=== PATIENT | male | born 1950 | race Caucasian/White ===

== ENCOUNTER 2016-09-06 17:06 | Inpatient (IN) ==
[2016-09-06 18:01] LABS: Basophils % 0.1 %; Eosinophils % 0.3 %; Hematocrit 33.9 % (37.5-50.1); Hemoglobin 11.2 g/dL (12.9-16.9); Immature Granulocytes % 0.5 % (0-4); Lymphocytes # 0.4 K/mcL (0.6-4.6); Lymphocytes % 3.3 %; Mean Corpuscular Hemoglobin 30.4 pg (28.0-33.3); Mean Corpuscular Volume 92.1 fL (83.0-100.0); Mean Platelet Volume 8.6 fL (9.4-12.4); Monocytes # 0.6 K/mcL (0.0-1.3); Monocytes % 5.7 %; Neutrophils # 10.1 K/mcL (1.6-8.9); Platelet Count 133 K/mcL (140-400); Red Blood Count 3.68 M/mcL (4.19-5.50); Red Cell Distribution Width 13.1 % (11.5-14.5); Segmented Neutrophils % 90.1 %
[2016-09-06 18:26] LABS: Calcium 9.5 mg/dL (8.6-10.8)
[2016-09-06] MEDS ORDERED: *HR* Promethazine 25 MG/ML VIAL IVP PRN (18:43)
[2016-09-06] MEDS ORDERED: Tdap (Boostrix) Vaccine 0.5 ML SYRINGE IM ONE (18:47)
--- NOTE | 2016-09-06 18:59 | Emergency Department Note ---
Disposition Clinical Impression: Syncope and collapse, Elevated troponin Disposition: Admitted As Inpatient Condition: Fair Time of Disposition: 20:31 General Adult HPI - General Stated complaint: Elevated Trop 0.08 Time Seen by Provider: 09/06/16 17:33 Source: patient Nursing Notes Reviewed: Yes Vital Signs Reviewed: Yes - History of Present Illness HPI Narrative: Patient is a 66-year-old male who presents after syncopal episode that happened 9 hours ago. Patient was found down ground in front of his trailer by his partner who states he was completely out. He was then taken to [facility] ED for assessment. Her report from them stated that their assessment was negative and the patient was discharged home. Once they got home they were called by the ED and was told his troponin was elevated and was directed to come to [place] emergency department. Patient states he is nauseous but is nauseous chronically vomits at least once daily. Patient denies any chest pain shortness of breath vision changes. Patient does state he has been having increasing unsteadiness on his feet. Pt states that he had a previous episode about six weeks ago but did not go to the hospital for workup. Patients partner states she the pt has seemed more weak after starting clonidine x 4wks ago. Patient has a past medical history for diabetes, hypertension, patient is on dialysis Monday with Dr. Vee. Pain Scale: 0 - Related Data Home Medications Medication Instructions Recorded Confirmed Aspirin Enteric Coated [Aspirin EC] 81 mg PO DAILY 05/02/16 09/06/16 Calcium Carbonate [Tums] 500 mg PO QID 05/02/16 09/06/16 Insulin NPH, HUMAN [HumuLIN N] 6 unit SQ HS 05/02/16 09/06/16 Insulin NPH, HUMAN [HumuLIN N] 12 unit SQ QAM 05/02/16 09/06/16 Paroxetine [Paxil] 20 mg PO DAILY 05/02/16 09/06/16 Renal Vitamin [Renal Caps Softgel] 1 mg PO DAILY 05/02/16 09/06/16 Acetaminophen [Tylenol Arthritis] 1,300 mg PO Q8H PRN 09/06/16 09/06/16 Atenolol [Tenormin] 25 mg PO QPM 09/06/16 09/06/16 Docusate [Colace] 100 mg PO BID 09/06/16 09/06/16 Hydralazine HCl [Hydralazine HCl] 50 mg PO BID 09/06/16 09/06/16 Lidocaine/Prilocaine CREAM [Emla] 1 appl TP AD PRN 09/06/16 09/06/16 Lisinopril [Zestril] 10 mg PO SUTUTH@199909/06/16 09/06/16 Lisinopril [Zestril] 20 mg PO MOWEFRSA@199909/06/16 09/06/16 Mupirocin [Bactroban Oint] 1 appl TP BID 09/06/16 09/06/16 Quetiapine Fumarate [Seroquel] 50 mg PO HS 09/06/16 09/06/16 cloNIDine HCl [CloNIDine HCl] 0.1 mg PO BID 09/06/16 09/06/16 Previous Rx's Medication Instructions Recorded Atorvastatin [Lipitor] 40 mg PO HS #30 tablet 02/20/15 Allergies Allergy/AdvReac Type Severity Reaction Status Date / Time No Known Allergies Allergy Verified 09/06/16 17:43 All systems ED: reviewed and negative except as stated. Review of Systems: As Per HPI Constitutional: Denies: fever, chills, weakness, weight change Eyes: Denies: eye pain, eye discharge, vision change ENT ED: Denies: ear pain, throat pain, dental pain, hearing loss, epistaxis, congestion, dysphagia Cardiovascular: Denies: chest pain, palpitations, dyspnea on exertion, edema, syncope Respiratory: Denies: cough, dyspnea, wheezes, hemoptysis, stridor Gastrointestinal: Reports: nausea, vomiting Genitourinary: Denies: urgency, dysuria, frequency, hematuria Musculoskeletal: Denies: back pain, neck pain, arthralgia, myalgia Integumentary: Reports: abrasion (Left forearm) Neurological: Reports: weakness Hematological/Lymphatic: Denies: easy bleeding, easy bruising Past Medical History - Past Medical History Attestation: Yes The following information was validated with the patient. Source: patient, obtained from family Medical history: Reports: diabetes, dialysis, hypertension, renal disease, other Surgical history: Reports: cholecystectomy, colectomy, other Psychiatric history: Reports: no psych history - Social History Smoking Status: Never smoker Smokeless Tobacco Status: No Alcohol use: Reports: none Drug use: Reports: none Physical Exam -General Appearance: Patient is a 66-year-old male who is alert and oriented 3 and in no acute distress. -Neurological exam: Cranial nerves II-12 intact, no focal deficits observed, strength equal 5/5 bilaterally in upper and lower extremities, cerebellar motion test negative. Negative loss of sensation - Head Head exam: Small superficial abrasion to forehead - Eye Eye exam: Present: normal appearance, PERRL, EOMI, negative for scleral icterus negative for conjunctival pallor - ENT ENT exam: normal exam, normal oropharynx, mucous membranes moist - Neck Neck exam: Present: normal inspection, full ROM, trachea midline, negative JVD no bruit - Chest Chest inspection: Present: Patient has bilateral equal rise and fall of chest wall. Non-tender to palpation. - Respiratory Respiratory exam: Clear to auscultation bilaterally without wheezes rales or rhonchi Cardiovascular Cardiovascular exam: Present: regular rate, normal rhythm, normal heart sounds, without murmurs rubs or gallops. - Abdominal Exam Abdominal exam: Present: soft, nondistended, Non-Tender light and deep palpation in all quadrants. Bowel sounds normoactive throughout all 4 quadrants. Negative for hyper or hyperresonance. - Extremities Exam Extremities exam: Present: normal inspection, equal strength bilaterally, patient has a large abrasion to left posterior forearm not actively bleeding - Back Exam Back exam: Present: normal inspection, full ROM. Absent: tenderness, CVA tenderness (R), CVA tenderness (L) - Psychiatric Psychiatric exam: Present: normal affect, normal mood - Skin Skin exam: Present: warm, dry, intact, normal color - General General appearance: alert, in no apparent distress Course - Reevaluation(s) Reevaluation #1: Pt ministered Phenergan 12.5 mg for nausea. Labs ordered Time: 18:44 Reevaluation #2: Patient has had resolution of nausea after Phenergan administered Time: 19:00 Reevaluation #3: repeat phenergan ordered for nausea Time: 19:40 - Consultations Consultation #1: Dr. Garzon the hospitalist has accepted for admission 2020hrs Time: 20:20 Vital Signs Temperature 98.8 F 09/06/16 17:36 Pulse Rate 69 09/06/16 17:36 Respiratory Rate 16 09/06/16 17:36 Blood Pressure 160/85 09/06/16 17:36 O2 Sat by Pulse Oximetry 90 09/06/16 17:36 Temperature 98.2 F 09/06/16 23:30 Pulse Rate 63 09/06/16 23:30 Respiratory Rate 16 09/06/16 23:30 Blood Pressure 150/64 09/06/16 23:30 O2 Sat by Pulse Oximetry 93 09/06/16 23:30 Oxygen Delivery Oxygen Delivery Nasal Cannula Medical Decision Making - MDM Narrative Medical decision making narrative: 66-year-old male who presents to ED after being seen at [facility] secondary to the syncopal episode which he was found laying out in front of his trailer by his partner. Patient states this is his second occurrence of within 6 weeks. Patient has noticed increasing weakness since starting clonidine 4 weeks ago as well. Patient was discharged home after supposedly negative workup. Patient was called at home for an elevated troponin and directed to [place]. Patient presented in no acute distress but complains of lower extremity weakness. Patient not having any chest pain. Patient's troponins were elevated at 0.27. Patient's EKG showed inverted T waves in aVL but no other signs of ST depression or QRS widening. nausea and vomiting resolved wtih phenergan 12.5 iv. Chest x-ray showed no cardiopulmonary abnormalities, CT head and neck no intracranial abnormalities. Patient BUN/creatinine chronically high and currently at baseline for patient. GFR 15 and patient still makes some urine. Creatinine kinase negative. Patient is chronically anemic and hemoglobin is currently 11.2 which is close to baseline. WBC at 11.2 which is mildly elevated but may be secondary to stress reaction secondary to syncopal episode. RECOMMEND MONITORING AND CORRELATE WITH OVERALL PATIENT'S CONDITION. We will try to obtain urine for urinalysis to rule out UTI. Discussed admission with patient and partner who accepts treatment plan for further workup concerning patient's syncope and lower extremity weakness I discussed the case with Dr. Garzon the hospitalist who was accepted patient for admission. - Medical Records Medical records reviewed: Yes I reviewed the patient's medical records. - Lab Data Lab results reviewed: Yes I reviewed the patient's lab results. Lab results narrative: Laboratory Results - last 48 hr 09/06/16 09/06/16 09/06/16 17:50 17:50 17:50 WBC 11.2 H RBC 3.68 L Hgb 11.2 L Hct 33.9 L MCV 92.1 MCH 30.4 MCHC 33.0 RDW 13.1 Plt Count 133 L MPV 8.6 L Immature Gran % 0.5 Seg Neutrophils % 90.1 Lymphocytes % 3.3 Monocytes % 5.7 Eosinophils % 0.3 Basophils % 0.1 Neutrophils # 10.1 H Lymphocytes # 0.4 L Monocytes # 0.6 Eosinophils # 0.0 Basophils # 0.0 Sodium 140 Potassium 4.0 Chloride 98 Carbon Dioxide 29 BUN 52 H Creatinine 4.66 H Est GFR ( Amer) 15 L Est GFR (Non-Af Amer) 13 L BUN/Creatinine Ratio 11 Glucose 179 H Calculated Osmolality 309 H Calcium 9.5 Creatine Kinase Troponin I 0.27 H* 09/06/16 17:50 WBC RBC Hgb Hct MCV MCH MCHC RDW Plt Count MPV Immature Gran % Seg Neutrophils % Lymphocytes % Monocytes % Eosinophils % Basophils % Neutrophils # Lymphocytes # Monocytes # Eosinophils # Basophils # Sodium Potassium Chloride Carbon Dioxide BUN Creatinine Est GFR ( Amer) Est GFR (Non-Af Amer) BUN/Creatinine Ratio Glucose Calculated Osmolality Calcium Creatine Kinase 108 Troponin I Result diagrams: 09/06/16 17:50 09/06/16 17:50 Lab Results 09/06/16 09/06/16 09/06/16 Range/Units 17:50 17:50 17:50 WBC 11.2 H (4.3-11.1) K/mcL RBC 3.68 L (4.19-5.50) M/mcL Hgb 11.2 L (12.9-16.9) g/dL Hct 33.9 L (37.5-50.1) % MCV 92.1 (83.0-100.0) fL MCH 30.4 (28.0-33.3) pg MCHC 33.0 (31.6-35.5) g/dL RDW 13.1 (11.5-14.5) % Plt Count 133 L (140-400) K/mcL MPV 8.6 L (9.4-12.4) fL Immature Gran % 0.5 (0-4) % Seg Neutrophils % 90.1 % Lymphocytes % 3.3 % Monocytes % 5.7 % Eosinophils % 0.3 % Basophils % 0.1 % Neutrophils # 10.1 H (1.6-8.9) K/mcL Lymphocytes # 0.4 L (0.6-4.6) K/mcL Monocytes # 0.6 (0.0-1.3) K/mcL Eosinophils # 0.0 (0.0-0.6) K/mcL Basophils # 0.0 (0.0-0.2) K/mcL Sodium 140 (136-145) mEq/L Potassium 4.0 (3.5-4.5) mEq/L Chloride 98 (98-109) mEq/L Carbon Dioxide 29 (19-29) mEq/L BUN 52 H (8-26) mg/dL Creatinine 4.66 H (0.72-1.25) mg/dL Est GFR ( Amer) 15 L (> 60) Est GFR (Non-Af Amer) 13 L (> 60) BUN/Creatinine Ratio 11 (6-26) Glucose 179 H (70-99) mg/dL Calculated Osmolality 309 H (280-300) Calcium 9.5 (8.6-10.8) mg/dL Creatine Kinase (30-200) Units/L Troponin I 0.27 H* (0-0.03) ng/mL Urine Color (Yellow) Urine Clarity (Clear) Urine pH (5.0-8.0) pH Units Ur Specific [place] (1.010-1.025) Urine Protein (Neg-Trace) mg/dL Urine Glucose (UA) (Normal) mg/dL Urine Ketones (Negative) mg/dL Urine Blood (Negative) Urine Nitrite (Negative) Urine Bilirubin (Negative) Urine Urobilinogen (Normal) mg/dL Ur Leukocyte Esterase (Negative) Urine Microscopic RBC (0-3) per hpf Urine Microscopic WBC (0-3) per hpf Ur Squamous Epith Cells (None-Few) per lpf Urine Bacteria (None-Few) per hpf Hyaline Casts (None-Few) per lpf Ur Culture Indicated? (NO) 09/06/16 09/06/16 Range/Units 17:50 20:30 WBC (4.3-11.1) K/mcL RBC (4.19-5.50) M/mcL Hgb (12.9-16.9) g/dL Hct (37.5-50.1) % MCV (83.0-100.0) fL MCH (28.0-33.3) pg MCHC (31.6-35.5) g/dL RDW (11.5-14.5) % Plt Count (140-400) K/mcL MPV (9.4-12.4) fL Immature Gran % (0-4) % Seg Neutrophils % % Lymphocytes % % Monocytes % % Eosinophils % % Basophils % % Neutrophils # (1.6-8.9) K/mcL Lymphocytes # (0.6-4.6) K/mcL Monocytes # (0.0-1.3) K/mcL Eosinophils # (0.0-0.6) K/mcL Basophils # (0.0-0.2) K/mcL Sodium (136-145) mEq/L Potassium (3.5-4.5) mEq/L Chloride (98-109) mEq/L Carbon Dioxide (19-29) mEq/L BUN (8-26) mg/dL Creatinine (0.72-1.25) mg/dL Est GFR ( Amer) (> 60) Est GFR (Non-Af Amer) (> 60) BUN/Creatinine Ratio (6-26) Glucose (70-99) mg/dL Calculated Osmolality (280-300) Calcium (8.6-10.8) mg/dL Creatine Kinase 108 (30-200) Units/L Troponin I (0-0.03) ng/mL Urine Color Yellow (Yellow) Urine Clarity Clear (Clear) Urine pH 7.0 (5.0-8.0) pH Units Ur Specific [place] 1.023 (1.010-1.025) Urine Protein >=300 H (Neg-Trace) mg/dL Urine Glucose (UA) 100 H (Normal) mg/dL Urine Ketones Trace H (Negative) mg/dL Urine Blood Negative (Negative) Urine Nitrite Negative (Negative) Urine Bilirubin Small H (Negative) Urine Urobilinogen Normal (Normal) mg/dL Ur Leukocyte Esterase Negative (Negative) Urine Microscopic RBC 5-15 H (0-3) per hpf Urine Microscopic WBC 0-3 (0-3) per hpf Ur Squamous Epith Cells Many H (None-Few) per lpf Urine Bacteria None Seen (None-Few) per hpf Hyaline Casts None Seen (None-Few) per lpf Ur Culture Indicated? NO (NO) - Radiology Data Radiology results reviewed: Yes I reviewed the patient's radiology results. Chest X-Ray 09/06/16 17:51 IMPRESSION: Limited, low lung volume study. Suspected vascular congestion and possibly interstitial pulmonary edema. D/ / Cecilio Bro MD / Cecilio Bro MD Interpreting Provider: Cecilio Bro MD Cervical Spine CT 09/06/16 17:55 IMPRESSION: No acute abnormality of the cervical spine. D/ / Fortunato Avila MD / Fortunato Avila MD Interpreting Provider: Fortunato Avila MD Head CT 09/06/16 17:55 IMPRESSION: No acute intracranial abnormality. D/ / Mckay Yan MD / Mckay Yan MD Interpreting Provider: Mckay Yan MD - EKG Data EKG #1 EKG attestation: Yes I reviewed and interpreted this EKG. EKG results narrative: EKG taken 09/06/2016 at 1745 hrs. shows sinus rhythm with first-degree AV block , patient has flipped T-wave in aVL with no ST depressions or elevations in leads. No QRS widening no QT prolongation. Ventricular rate 65 bpm Repeat EKG taken at 2030 hrs. shows no change. Ventricular rate 67 bpm Attestation Statement - Attestation Attestation: I examined this patient and my medical decision-making was reviewed with the Resident Physician. I agree with the documented findings, disposition and treatment plan as described except to the extent set forth below. In summary 66 -year-old male who presents with concern for elevated cardiac biomarkers. He was seen at [facility] and recently admitted. He has had 2 syncopal episodes. Ultimately he has chronic elevated cardiac biomarkers from underlying renal dysfunction. He has had frequent falls. His tetanus shot was updated due to a abrasion on the left arm. This is not updated at [facility]. Additionally CT scan of the head and neck was performed which shows no acute findings. The patient was admitted for further evaluation of syncope, fall. Vital signs are stable at time of admission. EKG was nondiagnostic. He did have some vomiting however this is chronic for the patient.
[2016-09-06] MEDS ORDERED: *HR* Promethazine 25 MG/ML VIAL IVP ONE (20:29)
--- NOTE | 2016-09-06 20:36 | Internal Med History&Physical ---
Date of Encounter: 09/06/16 Time of Encounter: 20:35 Assessment and Plan (1) Syncope Current visit: Yes Status: Acute patient with no known hx of arrhythmia or seizure comes in with a regular fall suggestive of physical deconditioning but subsequently had a fall for which he passed out, this second fall was without warning, this is concerning for syncope of ?cardiac origin vs vsovagal vs neuro in etiology, EKG was suggestive of 1st degree AV block and fascicular block, head CT was unremarkable we will admit for telemonitoring and 2D Echo, further evaluation depends on findings from the aforementioned tests, he may need event monitoring if current investigations are unremarkable Qualifiers: Syncope type: unspecified Qualified Code(s): R55 - Syncope and collapse (2) Elevated troponin Current visit: Yes Status: Chronic patient has always had troponemia, this most likely related to poor renal clearance from ESRD, his peak was 0.68 in 01/2015, now admitted with 0.27, no need to trend, will repeat with AM labs (3) ESRD (end stage renal disease) on dialysis Current visit: Yes Status: Chronic hx of ESRD on HD MWF, he had his regular HD yesterday with no complications, we will get nephrology to weigh in for inpatient HD from tomorrow (4) HTN (hypertension) Current visit: Yes Status: Chronic Hx of uncontrolled HTN on multiple medications, we will continue home medications with BP monitoring Qualifiers: Hypertension type: essential hypertension Qualified Code(s): I10 - Essential (primary) hypertension (5) Diabetes Current visit: Yes Status: Chronic hx of type 2 DM on insulin, he was admitted with hyperglycemia, last A1c unknown , we will continue basal bolus regimen with sliding scale for coverage, will repeat A1c 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 mellitus complication status: with kidney complications Diabetes mellitus complication detail: with chronic kidney disease Diabetes mellitus group home insulin use: 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 Dwyer is a 66 year old male with a history of ESRD on HD MWF was brought in today for passing out. He was in his usual state of health until sometime this today when he fell whilst he was returning from the mailbox after he went for his mail. He reports lightheadedness prior to that fall and he was aware the whole time with no LOC. He broke his fal with his left arm. He denies preceding chest pain, nausea or vomiting, palpitations. Later whilst he was being helped up the stairs he passed out and was helped to the floor. He denies any warning, he did not have any prior symptoms and was unable to break his fall this time around. Per his partner he was out for about 4-5 minutes, no seizure like activity was seen. He was taken to the ER of [place] where workup was unremarkable but later called at home for elevated troponin and asked to come to the ER of [place] for further evaluation. He denies fever, chills, recent sick contacts. He had his regular HD yesterday without hypotension, tachycardia or hypertension. Per partner he had a normal LHC last year at [facility]. Past Med Surg Social Fam HX - Past Medical History Medical history: diabetes, dialysis, hypertension, renal disease, other Psychiatric history: no psych history - Past Surgical History Surgical History: cholecystectomy, colectomy, other - Social History Smoking Status: Former smoker Packs per day: light smoker and quit about 40 years ago Smokeless Tobacco Status: No Alcohol use: none Drug use: none - Family History Mother Living Status: Hx Family Cardiac Disorders: Yes Hx Family Cancer: Yes (metastic breast cancer) Internal Medicine - H&P: Meds Atorvastatin [Lipitor] 40 mg PO HS #30 tablet 02/20/15 [Rx] Aspirin Enteric Coated [Aspirin EC] 81 mg PO DAILY 05/02/16 [History] Calcium Carbonate [Tums] 500 mg PO QID 05/02/16 [History] Insulin NPH, HUMAN [HumuLIN N] 6 unit SQ HS 05/02/16 [History] Insulin NPH, HUMAN [HumuLIN N] 12 unit SQ QAM 05/02/16 [History] Paroxetine [Paxil] 20 mg PO DAILY 05/02/16 [History] Renal Vitamin [Renal Caps Softgel] 1 mg PO DAILY 05/02/16 [History] Acetaminophen [Tylenol Arthritis] 1,300 mg PO Q8H PRN 08/01/17 [History] Atenolol [Tenormin] 25 mg PO QPM 09/06/16 [History] Docusate [Colace] 100 mg PO BID 09/06/16 [History] Hydralazine HCl [Hydralazine HCl] 50 mg PO BID 09/06/16 [History] Lidocaine/Prilocaine CREAM [Emla] 1 appl TP AD PRN 09/06/16 [History] Lisinopril [Zestril] 10 mg PO SUTUTH@199909/06/16 [History] Lisinopril [Zestril] 20 mg PO MOWEFRSA@199909/06/16 [History] Mupirocin [Bactroban Oint] 1 appl TP BID 09/06/16 [History] Quetiapine Fumarate [Seroquel] 50 mg PO HS 09/06/16 [History] cloNIDine HCl [CloNIDine HCl] 0.1 mg PO BID 09/06/16 [History] Allergies No Known Allergies Allergy (Verified 09/06/16 17:43) All Systems PM: A 10-system review of systems was performed and is negative for pertinent findings except as documented above in the HPI. - Constitutional Vitals: Temp Pulse Resp BP Pulse Ox 98.8 F 65 16 183/85 100 09/06/16 17:36 09/06/16 20:14 09/06/16 20:14 09/06/16 20:14 09/06/16 20:14 GENERAL: Adult male, sitting on the edge of the bed, vomiting into a container, face flushed as he does so, Alert, HEENT: NC/AT, EOMI, PERRLA, anicteric sclera, normal conjunctiva, supple, clear nares, moist mucous membranes, RESP: Lungs are clear to auscultation bilaterally, good AE bilaterally, No crackles or wheeze CARDIO: Normal hearts sounds; S1 and 2, RRR with no murmurs, no JVD, no ankle edema GI: Soft, full, no tenderness, no organomegaly felt, normal bowel sounds heard MUSCULOSKELETAL: grossly normal movements bilaterally, no deformities noted, no calf tenderness, LUE AVF with thrill and bruit NEUROLOGIC: CN 2-12 intact grossly. No gross motor/sensory deficit appreciated, PSYCHIATRY: AAO x 3. Mood is fair, SKIN: frontal abrasion, LUE abrasions(all from fall) Internal Med - H&P Results - Labs CBC & Chem 7: 09/06/16 17:50 09/06/16 17:50 - EKG Data -: EKG Interpreted by Myself - Diagnostic Studies CT scan - head Status: image reviewed by me Chest x-ray Status: image reviewed by me
[2016-09-06 21:18] LABS: Bilirubin,Urine Small (Negative); Blood,Urine Negative (Negative); Clarity,Urine Clear (Clear); Color,Urine Yellow (Yellow); Glucose,Urine (UA) 100 mg/dL (Normal); Ketones,Urine Trace mg/dL (Negative); Leukocyte Esterase,Urine Negative (Negative); Nitrite,Urine Negative (Negative); Protein,Urine >=300 mg/dL (Neg-Trace); Specific Gravity,Urine 1.023 (1.010-1.025); Urobilinogen,Urine Normal (Normal)
[2016-09-06 21:21] LABS: Bacteria,Urine None Seen per hpf (None-Few); Hyaline Casts,Urine None Seen per lpf (None-Few); Squamous Epithelial Cell,Urine Many per lpf (None-Few); WBC,Urine 0-3 per hpf (0-3)
[2016-09-06] MEDS ORDERED: Naloxone 0.4 MG/ML INJ IVP PRN (21:47)
[2016-09-06] MEDS ORDERED: D5% in Water 1,000 ML IVC PRN (21:51)
[2016-09-06] MEDS ORDERED: *HR* Dextrose 50 % in Water (Syg) 50 ML SYRINGE IVP PRN (21:51)
[2016-09-06] MEDS ORDERED: Dextrose Gel 15 GM PO PRN ×2 (21:51)
[2016-09-06] MEDS ORDERED: Insulin LISPRO 300 UNITS/3 ML VIAL SQ SCH (22:00)
[2016-09-06] MEDS: Insulin LISPRO 300 UNITS/3 ML VIAL SQ SCH (22:56)
[2016-09-07] MEDS ORDERED: Ondansetron 4 MG/2 ML VIAL IVP SCH
[2016-09-07] MEDS: *HR* Heparin 5,000 UNIT/ML VIAL SQ SCH ×3 (04:48→21:33)
[2016-09-07] MEDS: Acetaminophen 325 MG TABLET PO PRN ×2 (04:53→18:34)
[2016-09-07 05:23] LABS: Calcium 9.5 mg/dL (8.6-10.8); Phosphorous 4.1 mg/dL (2.3-4.7); Potassium 4.1 mEq/L (3.5-4.5)
[2016-09-07 05:25] LABS: Hemoglobin A1C 6.6 %
[2016-09-07] MEDS ORDERED: 0.9 % Sodium Chloride 250 ML IVC PRN (08:06)
--- NOTE | 2016-09-07 08:39 | Internal Med Progress Note ---
<Bradley Lazcano - Last Filed: 09/07/16 13:38> Date of Encounter: 09/07/16 Time of Encounter: 08:37 - Assessment and plan (1) Syncope Current Visit: Yes Status: Acute Assessment and plan: CXR reviewed- showed vascular congestion with low lung volumes. Head CT: no acute abnormality cervical spine CT: no acute abnormality no prior history of arrhythmia or seizure like activity no shaking or seizure like activity present during loss of consciousness. Etiology unclear at this time. EKG reviewed: some T wave changes with first degree AV block. Plan: obtain orthostatic vital signs obtain carotid duplex imaging- pending. echo pending will consider discharge with holter monitor if work up negative. Qualifiers: Syncope type: unspecified Qualified Code(s): R55 - Syncope and collapse (2) Elevated troponin Current Visit: Yes Status: Chronic Assessment and plan: etiology likely secondary to ESRD. patient has had elevated troponins in the past. he denies chest pain at this time. EKG reviewed. There are T wave abnormalities that have been present on prior EKGs. will continue to monitor for any signs of ACS. (3) HTN (hypertension) Current Visit: Yes Status: Chronic Assessment and plan: blood pressure currently within normal limits continue home medications atenolol, clonidine, hydralazine, lisinopril Qualifiers: Hypertension type: essential hypertension Qualified Code(s): I10 - Essential (primary) hypertension (4) ESRD (end stage renal disease) on dialysis Current Visit: Yes Status: Chronic Assessment and plan: consult to nephrology to manage hemodialysis. He gets diallysis MWF. patient has not had intradialytic hypotension. PLan: appreciate nephrology recs patient received regularly scheduled dialysis today. strict I/O daily weight continue renal protective strategy. (5) Diabetes Current Visit: Yes Status: Chronic Assessment and plan: admitted with hyperglycemia. A1C 6.6% Plan: still hyperglycemic Medium dose sliding scale insulin with ACHS accuchecks. 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 He was evaluated while he was laying in bed getting dialysis today. patient was admitted last night for syncopal episode. patient denies being dehydrated when this episode occurred, he denies palpitations, shortness of breath. he denies tongue biting, shaking, or any other seizure like activity. he denies headaches, nausea, vomiting, diarrhea, fever, chills, chest pain, shortness of breath. Patient denies any complaints today. - Constitutional Vitals: Temp Pulse Resp BP Pulse Ox 98.5 F 69 17 137/76 90 09/07/16 07:45 09/07/16 07:45 09/07/16 07:45 09/07/16 07:45 09/07/16 07:45 General appearance: Present: A&O X 3, pleasant, no acute distress, answers questions appropriately - Head Head exam: Present: atraumatic, normocephalic - Neck Neck exam general surgery: Present: supple, trachea midline - Respiratory Respiratory exam: Present: CTAB - Cardiovascular Cardiovascular exam: Present: RRR, +S1, +S2 - GI/Abdominal GI/Abdominal exam: Present: normal bowel sounds, soft. Absent: distended, tenderness - Extremities Exam Extremities exam: Absent: cyanotic, pedal edema - Neurological Exam Neurological exam: Present: alert, oriented X3, no focal deficits - Psychiatric Psychiatric exam: Present: normal affect, normal mood - Skin Skin exam: Present: intact Internal Medicine: Result - Labs CBC & Chem 7: 09/06/16 17:50 09/07/16 04:34 Labs: BMP 09/07/16 04:34 Sodium 139 Potassium 4.1 Chloride 98 Carbon Dioxide 30 H BUN 58 H Creatinine 5.09 H Glucose 213 H Calcium 9.5 Cardiac Enzymes 09/07/16 Range/Units 04:34 Troponin I 0.23 H* (0-0.03) ng/mL Consult Discharge Plan - Plan Referrals: Kenny Mckenna DO [Primary Care Provider] - 09/15/16 1:00 pm <Kosta Paez - Last Filed: 09/07/16 15:23> Date of Encounter: 09/07/16 - Constitutional Vitals: Temp Pulse Resp BP Pulse Ox 98.4 F 64 18 160/74 94 09/07/16 13:20 09/07/16 14:02 09/07/16 13:20 09/07/16 14:02 09/07/16 11:00 Internal Medicine: Result - Labs CBC & Chem 7: 09/06/16 17:50 09/07/16 04:34 Labs: BMP 09/07/16 04:34 Sodium 139 Potassium 4.1 Chloride 98 Carbon Dioxide 30 H BUN 58 H Creatinine 5.09 H Glucose 213 H Calcium 9.5 Cardiac Enzymes 09/07/16 Range/Units 04:34 Troponin I 0.23 H* (0-0.03) ng/mL - Attending Attestation I examined this patient and my medical decision-making was reviewed with the Resident Physician on 09/07/16. I agree with the documented findings, disposition and treatment plan as described except to the extent set forth below. 66 Y/O M admitted and being managed for syncope he has a PMH of ESRD on HD, HTN, DM he is seen during HD, he has no new complains Physical exam is unremarkable Labs and Imaging reviewed: olivia, Troponin is chronically elevated We are awaiting orthostatics, ECHO, doppler studies as at time of review His other chronic medical conditions are stable Continue telemetry Rest as in resident's documentation
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
[2016-09-07] MEDS: Aspirin Enteric Coated 81 MG Tablet PO SCH (09:58)
[2016-09-07] MEDS: Renal Vitamin 1 MG CAPSULE PO SCH (09:58)
[2016-09-07] MEDS: Insulin LISPRO 300 UNITS/3 ML VIAL SQ SCH ×4 (09:58→20:53)
[2016-09-07] MEDS: hydrALAZINE 25 MG TABLET PO SCH ×2 (13:53→20:53)
[2016-09-07] MEDS: cloNIDine HCl 0.1 MG TABLET PO SCH ×2 (13:54→20:52)
[2016-09-07] MEDS ORDERED: 0.9 % Sodium Chloride 1,000 ML ONE (16:34)
[2016-09-07] MEDS ORDERED: Lisinopril 20 MG TABLET PO SCH (20:00)
--- NOTE | 2016-09-07 21:50 | Electrocardiograph Report ---
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
--- NOTE | 2016-09-07 21:55 | Electrocardiograph Report ---
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
[2016-09-08] MEDS: *HR* Heparin 5,000 UNIT/ML VIAL SQ SCH ×3 (05:23→21:37)
[2016-09-08 06:13] LABS: Basophils % 0.4 %; Eosinophils # 0.4 K/mcL (0.0-0.6); Eosinophils % 5.1 %; Hematocrit 30.1 % (37.5-50.1); Hemoglobin 9.7 g/dL (12.9-16.9); Immature Granulocytes % 0.4 % (0-4); Lymphocytes # 0.9 K/mcL (0.6-4.6); Lymphocytes % 12.7 %; Mean Corpuscular HGB Conc 32.2 g/dL (31.6-35.5); Mean Corpuscular Hemoglobin 30.1 pg (28.0-33.3); Mean Corpuscular Volume 93.5 fL (83.0-100.0); Mean Platelet Volume 9.6 fL (9.4-12.4); Monocytes # 0.8 K/mcL (0.0-1.3); Monocytes % 11.4 %; Neutrophils # 4.9 K/mcL (1.6-8.9); Platelet Count 115 K/mcL (140-400); Red Blood Count 3.22 M/mcL (4.19-5.50); Red Cell Distribution Width 13.4 % (11.5-14.5)
[2016-09-08 06:30] LABS: Calcium 9.3 mg/dL (8.6-10.8); Phosphorous 3.3 mg/dL (2.3-4.7); Potassium 4.5 mEq/L (3.5-4.5)
[2016-09-08] MEDS: Insulin LISPRO 300 UNITS/3 ML VIAL SQ SCH ×4 (08:26→20:25)
[2016-09-08] MEDS: Aspirin Enteric Coated 81 MG Tablet PO SCH (08:27)
[2016-09-08] MEDS: hydrALAZINE 25 MG TABLET PO SCH ×2 (08:27→20:05)
[2016-09-08] MEDS: cloNIDine HCl 0.1 MG TABLET PO SCH ×2 (08:28→20:06)
[2016-09-08] MEDS: Renal Vitamin 1 MG CAPSULE PO SCH (08:28)
[2016-09-08] MEDS: Acetaminophen 325 MG TABLET PO PRN ×2 (08:32→20:05)
--- NOTE | 2016-09-08 08:36 | Nephrology Progress Note ---
Date of Encounter: 09/08/16 Time of Encounter: 08:34 - Assessment and Plan (1) ESRD (end stage renal disease) on dialysis Current Visit: Yes Status: Chronic Plan for dialysis tomorrow Continue renal diet Avoid nephrotoxins if possible (2) Syncope Current Visit: Yes Status: Acute per primary team Qualifiers: Syncope type: unspecified Qualified Code(s): R55 - Syncope and collapse (3) HTN (hypertension) Current Visit: Yes Status: Chronic Stable per primary team Qualifiers: Hypertension type: essential hypertension Qualified Code(s): I10 - Essential (primary) hypertension Subjective Principal diagnosis: ESRD on dialysis, syncope Interval history: Patient seen and examined. Sitting up on side of bed. Objective - Vital Signs Vital signs: Vital Signs Temp Pulse Pulse Pulse Pulse Resp BP 09/08/16 07:37 98.0 F 62 18 142/73 09/08/16 00:55 97.6 F 59 17 124/65 09/07/16 20:13 98.1 F 66 18 174/85 09/07/16 18:58 99.2 F 67 16 157/73 09/07/16 15:00 98.4 F 68 16 149/81 09/07/16 14:02 64 66 09/07/16 14:01 64 09/07/16 13:20 98.4 F 18 135/67 09/07/16 12:55 137/67 09/07/16 12:40 135/73 09/07/16 12:25 137/60 09/07/16 12:10 135/69 09/07/16 11:55 138/74 09/07/16 11:40 139/77 09/07/16 11:25 141/74 09/07/16 11:10 136/77 09/07/16 11:00 98.4 F 64 16 143/76 09/07/16 10:55 143/76 09/07/16 10:40 141/74 09/07/16 10:25 149/78 09/07/16 10:10 145/55 09/07/16 09:55 163/47 09/07/16 09:40 114/76 09/07/16 09:25 98.8 F 18 118/66 BP BP BP Pulse Ox 09/08/16 07:37 95 09/08/16 00:55 94 09/07/16 20:13 94 09/07/16 18:58 90 09/07/16 15:00 94 09/07/16 14:02 160/74 160/71 09/07/16 14:01 143/76 09/07/16 13:20 09/07/16 12:55 09/07/16 12:40 09/07/16 12:25 09/07/16 12:10 09/07/16 11:55 09/07/16 11:40 09/07/16 11:25 09/07/16 11:10 09/07/16 11:00 94 09/07/16 10:55 09/07/16 10:40 09/07/16 10:25 09/07/16 10:10 09/07/16 09:55 09/07/16 09:40 09/07/16 09:25 Intake and Output 09/07/16 09/08/16 09/08/16 23:59 07:59 15:59 Intake Total 0 / 0 Balance 0 / 0 Intake: Oral 0 / 0 Other: Meal Dinner Percent of Meal Consumed 100% # Voids 1 Blood Glucose* 223 115 - General Appearance General appearance: Present: well-developed, well-nourished EENT: Present: ATNC, mucous membranes moist, hearing intact, vision intact Neck: Present: supple Respiratory: Present: clear Cardiology: Present: no edema, normal S1, normal S2 Dialysis Vascular Access: Arteriovenous Fistula Gastrointestinal: Present: no tenderness, no guarding Integumentary: Present: warm and dry Neurologic: Present: alert and oriented x3 Psychiatric: Present: mood/affect appropriate, cooperative - Lab 09/08/16 05:07 09/08/16 05:07 Most recent lab results Calcium 9.3 mg/dL (8.6-10.8) 09/08/16 05:07 Phosphorus 3.3 mg/dL (2.3-4.7) 09/08/16 05:07 Magnesium 2.0 mg/dL (1.6-2.6) 09/07/16 04:34 Consult Discharge Plan - Plan Referrals: Kenny Mckenna DO [Primary Care Provider] - 09/15/16 1:00 pm
--- NOTE | 2016-09-08 08:50 | Carotid Imaging Report ---
Carotid Duplex Patient Name:Jose Alberto Dwyer Order Number:[id number] Procedure Date:09/07/2016 Date:1950ge:66 yrs Gender:Male Rt.BP:160 / 74 mmHgHeart Rate: Location:[facility] Room #: 2A14 Agency Sales Management Assistant:Lakshmi Wilkinson, [facility] Referring MD:Bradley Lazcano DO slate splitter:Kenny Mckenna DO Reading MD:Kevon Ortiz MD , [facility] Primary Indications:Syncope and collapse Risk Factors Yes/No Hypertension Yes Diabetes Yes Smoker Previous Yes Impressions: Findings: Bilateral carotid systems are essentially normal. Findings Carotid Duplex: Right: The right proximal common carotid artery has a PSV of 97 cm/s and a EDV of 13 cm/s. The right mid common carotid artery has a PSV of 55 cm/s and a EDV of 13 cm/s. The right distal common carotid artery has a PSV of 65 cm/s and a EDV of 12 cm/s. The right bifurcation has a PSV of 44 cm/s and a EDV of 10 cm/s. The right proximal internal carotid artery has a PSV of 67 cm/s and a EDV of 17 cm/s. The right mid internal carotid artery has a PSV of 82 cm/s and a EDV of 18 cm/s. The right distal internal carotid artery has a PSV of 100 cm/s and a EDV of 20 cm/s. The right eca has a PSV of 65 cm/s and a EDV of 2 cm/s. The right vertebral artery has a PSV of 65 cm/s and a EDV of 11 cm/s. There is antegrade spectral Doppler flow patterns. Left: The left proximal common carotid artery has a PSV of 116 cm/s and a EDV of 1 cm/s. The left mid common carotid artery has a PSV of 74 cm/s and a EDV of 8 cm/s. The left distal common carotid artery has a PSV of 60 cm/s and a EDV of 11 cm/s. The left bifurcation has a PSV of 52 cm/s and a EDV of 14 cm/s. The left proximal internal carotid artery has a PSV of 61 cm/s and a EDV of 11 cm/s. The left mid internal carotid artery has a PSV of 82 cm/s and a EDV of 16 cm/s. The left distal internal carotid artery has a PSV of 125 cm/s and a EDV of 25 cm/s. The left eca has a PSV of 76 cm/s and a EDV of 1 cm/s. The left vertebral artery has a PSV of 58 cm/s and a EDV of 10 cm/s. Prior Study: No prior study available for comparison. Carotid Results Right PSV EDV Assessment Proximal CCA 97 13 Mid CCA 55 13 Distal CCA 65 12 Bifurcation 44 10 Proximal ICA 67 17 Mid ICA 82 18 Distal ICA 100 20 ECA 65 2 Vertebral Artery 65 11 Antegrade Flow Left PSV EDV Assessment Proximal CCA 116 1 Mid CCA 74 8 Distal CCA 60 11 Bifurcation 52 14 Proximal ICA 61 11 Mid ICA 82 16 Distal ICA 125 25 ECA 76 1 Vertebral Artery 58 10 Ratio's Right ICA/CCA Ratio: 1.81 ICA/CCA Values: 100/55 Left ICA/CCA Ratio: 1.68 ICA/CCA Values: 125/74 Updated by Kevon Ortiz MD, FACS on 09/08/2016 8:41:28 AM Kevon Ortiz MD electronically signed on 09/08/2016 8:44:02 AM with status of Final
--- NOTE | 2016-09-08 09:25 | Internal Med Progress Note ---
<Bradley Lazcano - Last Filed: 09/08/16 10:50> Date of Encounter: 09/08/16 Time of Encounter: 09:22 - Assessment and plan (1) Syncope Current Visit: Yes Status: Acute Assessment and plan: CXR reviewed- showed vascular congestion with low lung volumes. Head CT: no acute abnormality cervical spine CT: no acute abnormality no prior history of arrhythmia or seizure like activity no shaking or seizure like activity present during loss of consciousness. Etiology likely secondary to aortic stenosis. EKG reviewed: some T wave changes with first degree AV block. Echo shows LVEF 35-40%, EF was normal in 2016. He has severe pulmonary hypertension, mild concentric LVH, moderate aortic stenosis. prelim carotid duplex report is normal. Orthostatics negative. Plan: Appreciate cardiology recs. (2) Elevated troponin Current Visit: Yes Status: Chronic Assessment and plan: etiology likely secondary to ESRD. patient has had elevated troponins in the past. he denies chest pain at this time. EKG reviewed. There are T wave abnormalities that have been present on prior EKGs. will continue to monitor for any signs of ACS. Appreciate cardiology recs (3) HTN (hypertension) Current Visit: Yes Status: Chronic Assessment and plan: blood pressure currently within normal limits continue home medications atenolol, clonidine, hydralazine, lisinopril (4) ESRD (end stage renal disease) on dialysis Current Visit: Yes Status: Chronic Assessment and plan: consult to nephrology to manage hemodialysis. He gets diallysis MWF. patient has not had intradialytic hypotension. PLan: appreciate nephrology recs patient received regularly scheduled dialysis today. strict I/O daily weight continue renal protective strategy. (5) Diabetes Current Visit: Yes Status: Chronic Assessment and plan: admitted with hyperglycemia. A1C 6.6% Plan: still hyperglycemic Medium dose sliding scale insulin with ACHS accuchecks. (6) DVT prophylaxis Current Visit: No Status: Acute Assessment and plan: Heparin SQ - Subjective Interval history: 66 year old male evaluated at bedside. Per nursing notes, he had no acute events overnight. Patient denies nausea, vomiting, diarrhea, fever, chills. Patient states he still feels weak and has trouble walking. He reports some congestion and chronic low back pain. he denies shortness of breath and dizziness. - Constitutional Vitals: Temp Pulse Resp BP Pulse Ox 98.0 F 62 18 142/73 95 09/08/16 07:37 09/08/16 07:37 09/08/16 07:37 09/08/16 07:37 09/08/16 08:38 General appearance: Present: A&O X 3, pleasant, no acute distress, answers questions appropriately - Head Head exam: Present: atraumatic, normocephalic - Neck Neck exam general surgery: Present: supple, trachea midline - Respiratory Respiratory exam: Present: CTAB - Cardiovascular Cardiovascular exam: Present: RRR, +S1, +S2, systolic murmur (+2 systolic murmur at left upper sternal border) - GI/Abdominal GI/Abdominal exam: Present: normal bowel sounds, soft. Absent: distended, tenderness - Extremities Exam Extremities exam: Present: radial pulses palpable and symetrical. Absent: cyanotic, pedal edema - Neurological Exam Neurological exam: Present: alert, oriented X3, no focal deficits - Psychiatric Psychiatric exam: Present: normal affect, normal mood - Skin Skin exam: Present: intact Internal Medicine: Result - Labs CBC & Chem 7: 09/08/16 05:07 09/08/16 05:07 Labs: Short CBC 09/08/16 Range/Units 05:07 WBC 7.0 (4.3-11.1) K/mcL Hgb 9.7 L D (12.9-16.9) g/dL Hct 30.1 L (37.5-50.1) % Plt Count 115 L (140-400) K/mcL Neutrophils # 4.9 (1.6-8.9) K/mcL BMP 09/08/16 05:07 Sodium 138 Potassium 4.5 Chloride 97 L Carbon Dioxide 33 H BUN 33 H D Creatinine 3.97 H Glucose 120 H Calcium 9.3 - Impressions Impressions Echocardiogram 09/07/16 15:30 Impressions: LVEF 35-40%. Not all wall segments were visualized on the study. However, there appears to be mild to moderate LV systolic dysfunction. Consider repeat Limited study with Definity. Moderate left ventricular diastolic dysfunction with elevated filling pressures. Mild concentric left ventricular hypertrophy. RV is dilated and hypokinetic. Aortic valve appears severely calcified. By Doppler, there is moderate aortic stenosis by DI and NEIL. Moderate tricuspid regurgitation. Severe pulmonary hypertension, RVSP 82 mmHg. IVC is dilated. Moderate pericardial effusion. No tamponade physiology. When compared to prior study, 229 2015, LV systolic function appears newly reduced, RV is now dilated and hypokinetic and there is severe pulmonary hypertension. These abnormal findings were communicated to ordering provider. Left Ventricular Wall Motion: Rest Echo Findings The apex, apical inferior, mid inferior, basal inferior, basal anterior lateral, mid inferior lateral and basal inferior lateral haynes were hypokinetic. The apical septal, mid inferior septal, basal inferior septal, mid anterior septal and basal anterior septal haynes were dyskinetic. The apical anterior, mid anterior, basal anterior, apical lateral and mid anterior lateral haynes were not visualized. Findings: Study Quality * Technically adequate exam. ECG Findings * Normal sinus rhythm. Left Ventricle * Moderate left ventricular diastolic dysfunction with elevated filling pressures. * Mild concentric left ventricular hypertrophy. * LVEF 35-40%. Aorta * Normally sized aortic root. Aortic Valve * Trace aortic regurgitation. * Severely calcified aortic valve leaflets. * Moderate aortic stenosis (low gradient). Peak velocity 2.9 m/s, mean gradient 21 mmHg, dimensionless index 0.4, aortic valve area 1.3cm2. Mitral Valve * Normal mitral valve structure. * No mitral stenosis. * Trace mitral regurgitation. * Moderate mitral annular calcification Tricuspid Valve * Normal tricuspid valve structure. * Moderate tricuspid regurgitation. * Estimated RA pressure is 15 mmHg. * Severe pulmonary hypertension. * Estimated RVSP is 82 mmHg. Pulmonic Valve * Pulmonic valve is not well visualized. * No pulmonic stenosis. * No pulmonic regurgitation. Pulmonary Artery * Pulmonary artery not well visualized. Left Atrium * Severely dilated left atrium. Right Atrium * Normal right atrial size. Interatrial Septum * No evidence of PFO by color Doppler. Pericardium * There is a moderate pericardial effusion present. There is no right heart collapse. Blood pressure is normal. No significant respiratory variation across the mitral valve. * There is no echocardiographic evidence of tamponade. IVC * The IVC is dilated. * < 50% respiratory change. Right Ventricle * RV is dilated and hypokinetic. Hip X-Ray 09/07/16 19:11 IMPRESSION: No evidence of an acute injury. D/ / Star Stoner MD / Star Stoner MD Interpreting Provider: Star Stoner MD Consult Discharge Plan - Plan Referrals: Kenny Mckenna DO [Primary Care Provider] - 09/15/16 1:00 pm <Kosta Paez - Last Filed: 09/08/16 16:22> Date of Encounter: 09/08/16 - Constitutional Vitals: Temp Pulse Resp BP Pulse Ox 98.1 F 60 18 132/65 94 09/08/16 15:23 09/08/16 15:23 09/08/16 15:23 09/08/16 15:23 09/08/16 15:23 Internal Medicine: Result - Labs CBC & Chem 7: 09/08/16 05:07 09/08/16 05:07 Labs: Short CBC 09/08/16 Range/Units 05:07 WBC 7.0 (4.3-11.1) K/mcL Hgb 9.7 L D (12.9-16.9) g/dL Hct 30.1 L (37.5-50.1) % Plt Count 115 L (140-400) K/mcL Neutrophils # 4.9 (1.6-8.9) K/mcL BMP 09/08/16 05:07 Sodium 138 Potassium 4.5 Chloride 97 L Carbon Dioxide 33 H BUN 33 H D Creatinine 3.97 H Glucose 120 H Calcium 9.3 - Impressions Impressions Echocardiogram 09/07/16 15:30 Impressions: LVEF 35-40%. Not all wall segments were visualized on the study. However, there appears to be mild to moderate LV systolic dysfunction. Consider repeat Limited study with Definity. Moderate left ventricular diastolic dysfunction with elevated filling pressures. Mild concentric left ventricular hypertrophy. RV is dilated and hypokinetic. Aortic valve appears severely calcified. By Doppler, there is moderate aortic stenosis by DI and NEIL. Moderate tricuspid regurgitation. Severe pulmonary hypertension, RVSP 82 mmHg. IVC is dilated. Moderate pericardial effusion. No tamponade physiology. When compared to prior study, 229 2015, LV systolic function appears newly reduced, RV is now dilated and hypokinetic and there is severe pulmonary hypertension. These abnormal findings were communicated to ordering provider. Left Ventricular Wall Motion: Rest Echo Findings The apex, apical inferior, mid inferior, basal inferior, basal anterior lateral, mid inferior lateral and basal inferior lateral haynes were hypokinetic. The apical septal, mid inferior septal, basal inferior septal, mid anterior septal and basal anterior septal haynes were dyskinetic. The apical anterior, mid anterior, basal anterior, apical lateral and mid anterior lateral haynes were not visualized. Findings: Study Quality * Technically adequate exam. ECG Findings * Normal sinus rhythm. Left Ventricle * Moderate left ventricular diastolic dysfunction with elevated filling pressures. * Mild concentric left ventricular hypertrophy. * LVEF 35-40%. Aorta * Normally sized aortic root. Aortic Valve * Trace aortic regurgitation. * Severely calcified aortic valve leaflets. * Moderate aortic stenosis (low gradient). Peak velocity 2.9 m/s, mean gradient 21 mmHg, dimensionless index 0.4, aortic valve area 1.3cm2. Mitral Valve * Normal mitral valve structure. * No mitral stenosis. * Trace mitral regurgitation. * Moderate mitral annular calcification Tricuspid Valve * Normal tricuspid valve structure. * Moderate tricuspid regurgitation. * Estimated RA pressure is 15 mmHg. * Severe pulmonary hypertension. * Estimated RVSP is 82 mmHg. Pulmonic Valve * Pulmonic valve is not well visualized. * No pulmonic stenosis. * No pulmonic regurgitation. Pulmonary Artery * Pulmonary artery not well visualized. Left Atrium * Severely dilated left atrium. Right Atrium * Normal right atrial size. Interatrial Septum * No evidence of PFO by color Doppler. Pericardium * There is a moderate pericardial effusion present. There is no right heart collapse. Blood pressure is normal. No significant respiratory variation across the mitral valve. * There is no echocardiographic evidence of tamponade. IVC * The IVC is dilated. * < 50% respiratory change. Right Ventricle * RV is dilated and hypokinetic. Hip X-Ray 09/07/16 19:11 IMPRESSION: No evidence of an acute injury. D/ / Star Stoner MD / Star Stoner MD Interpreting Provider: Star Stoner MD Echocardiogram Limited Views 09/08/16 00:00 Impressions: Endocardial border was well seen on this study with use of Definity. LV systolic function estimated at 50-55%. Atypical septal motion. Left Ventricular Wall Motion: Rest Echo Findings All wall segments showed normal motion. Findings: Study Quality * Technically adequate exam. Left Ventricle * Definity echo contrast was used. * LVEF 50-55%. Chest CTA 09/08/16 13:33 IMPRESSION: 1. No evidence of pulmonary embolus 2. No evidence of thoracic aortic dissection. No aneurysm of the ascending thoracic aorta. Minimal ectasia of the proximal descending thoracic aorta. 3. Cardiomegaly with moderate pericardial effusion, probable pulmonary venous hypertension, and trace right pleural effusion D/ / Kevon Guzman MD / Kevon Guzman MD Interpreting Provider: Kevon Guzman MD - Attending Attestation I examined this patient and my medical decision-making was reviewed with the Resident Physician on 09/08/16. I agree with the documented findings, disposition and treatment plan as described except to the extent set forth below. 66 Y/O M admitted and being managed for syncope He has a PMH of ESRD on HD, HTN, DM He continues to complains of gait instability and objectively he is unable to walk and is wobbly on his feet Physical exam: VSS. Orthostatic negative, chest is CTAB, HS S1, S2, ASM, Abdomen is benign, no pedal edema His ECHO showed moderate pericardial effusion without tamponade, Moderate with severely calcified cusps, EF 35%. He is hemodynamically stable and has no respiratory symptoms CTA done shows no PE. Labs and Imaging reviewed: Plan -PT needs to review patient -Cardiology follow up for Moderate with recurrent syncope. CTA is negative for PE, no events on tele Fall precautions His other chronic medical conditions are stable Continue telemetry Rest as in resident's documentation
--- NOTE | 2016-09-08 10:15 | Cardiology Consult Note ---
Date of Encounter: 09/08/16 Time of Encounter: 10:11 Assessment and Plan (1) Syncope Current Visit: Yes Status: Acute Etiology unclear at this time. TTE reveals a reduced EF of 35% with a severely calcified aortic valve. Moderate with doppler. There is also Severe pulmonary hypertension. This is new since previous study. Etiology of syncope unclear at this time. Differential would include low flow as patient has been having progressive exertional dyspnea and fatigue. May also consider arrythmia with patients low EF. Would also consider PE given his syncope and elevated pulmonary hypertension. We will request records from [facility] to see what his previous workup was. Most likely he will need a Left and right catheterization. Recommend TTE with definity for better visualization. continue telemetry. Qualifiers: Qualified Code(s): R55 - Syncope and collapse (2) Elevated troponin Current Visit: Yes Status: Acute Patient has elevated TN. 0.27 initially and trended down to 0.23. Vanessa has had elevated troponins in the past. However this was after a cardiac arrest/CPR. This is in the setting of ESRD, however given his syncope and symptoms I think that this will need to be evaluated. (3) Aortic stenosis Current Visit: Yes Status: Acute Moderate. However there is a concern for low flow as his EF is reduced. Recommend repeat echo with definity. Qualifiers: Qualified Code(s): I35.0 - Nonrheumatic aortic (valve) stenosis (4) Exertional dyspnea Current Visit: Yes Status: Acute Etiology unclear. symptomatic , Vs. Pulmonary HTN? We will follow up with repeat echo. would also consider evaluating for possible PE. (5) Moderate to severe pulmonary hypertension Current Visit: Yes Status: Acute as stated above. (6) Acute systolic heart failure Current Visit: Yes Status: Acute HFrEF EF of 35-40% Etiology unclear. possibly valvular or ischemia. Will need repeat echo and likely will need LHC. currently on ACEi and beta curly. (7) First degree AV block Current Visit: Yes Status: Acute likely from his beta curly. unlikely to be contributing to his syncope. (8) Hyperlipidemia Current Visit: Yes Status: Acute continue lipitor. Qualifiers: Qualified Code(s): E78.5 - Hyperlipidemia, unspecified (9) Pericardial effusion Current Visit: Yes Status: Acute moderate. Chronic. Doubt this is contributing to his syncopal event. (10) Hypertension Current Visit: Yes Status: Acute currently well controlled on current regimen . Qualifiers: Qualified Code(s): I10 - Essential (primary) hypertension (11) ESRD (end stage renal disease) Current Visit: Yes Status: Acute management per nephrology (12) Diabetes Current Visit: Yes Status: Acute management per primary team. Qualifiers: Qualified Code(s): E11.9 - Type 2 diabetes mellitus without complications Discussion w patient/family: The assessment and plan as outlined above was discussed with the patient and/or family members who expressed understanding and agreement. All questions were answered. Thank you for involving us in the care of your patient. Please call with any questions. History of Present Illness Consult date: 09/08/16 Requesting physician: Kosta Paez Consult reason: Heart failure, syncope, elevated troponin. Chief complaint: syncope History of present illness: Mr. Dwyer is a 66 year old male who was admitted to [facility] on 09/06/2016 after he had a syncopal episode at home. Today the patient states that he had jst returned home from dialysis and was walking to the mail box when he lost consciousness. He has had 2-3 similar episodes over the past month that have occurred while he was ambulating or walking up the stairs. He denies any chest pain or discomfort. He denies any palpitations. He states that he used to enjoy walking but has been unable walk very much over the the past summer because he has dyspnea and has to stop and rest frequently. He states that the distance to his mail box is approximately 50 feet and he has to stop on the way to rest. He also complains of fatigue. He states that he is unsure if exertion causes his syncope. He dose not admitted to any associated activities ( ie. post void) .He states his LOC was less than a minute He states that he was evaluated for a renal transplant at [facility] approximately 1-2 years ago. He states he had a cardiac catheterization at that time and did not get a stent. He states that he was turned down for the transplant due to cardiac issues. He also states that he had a cardiac arrest in January 2015 ( PEA per medical record) but the cause was unknown. At this time he denies any aches or pains. He denies ay dyspnea or hemoptysis. He has no further complaints or concerns at this time. Past Med Surg Social Fam HX - Past Medical History Medical history: asthma, diabetes, dialysis, hypertension, renal disease, syncope, other Psychiatric history: no psych history - Past Surgical History Surgical History: cholecystectomy, colectomy, other - Social History Smoking Status: Never smoker Packs per day: light smoker and quit about 40 years ago Smokeless Tobacco Status: No Alcohol use: none Drug use: none - Family History Mother Living Status: Hx Family Cardiac Disorders: Yes Hx Family Cancer: Yes (metastic breast cancer) Medications and Allergies Atorvastatin [Lipitor] 40 mg PO HS #30 tablet 02/20/15 [Rx] Aspirin Enteric Coated [Aspirin EC] 81 mg PO DAILY 05/02/16 [History] Calcium Carbonate [Tums] 500 mg PO QID 05/02/16 [History] Insulin NPH, HUMAN [HumuLIN N] 6 unit SQ HS 05/02/16 [History] Insulin NPH, HUMAN [HumuLIN N] 12 unit SQ QAM 05/02/16 [History] Paroxetine [Paxil] 20 mg PO DAILY 05/02/16 [History] Renal Vitamin [Renal Caps Softgel] 1 mg PO DAILY 05/02/16 [History] Acetaminophen [Tylenol Arthritis] 1,300 mg PO Q8H PRN 09/06/16 [History] Atenolol [Tenormin] 25 mg PO QPM 09/06/16 [History] Docusate [Colace] 100 mg PO BID 09/06/16 [History] Hydralazine HCl [Hydralazine HCl] 50 mg PO BID 09/06/16 [History] Lidocaine/Prilocaine CREAM [Emla] 1 appl TP AD PRN 09/06/16 [History] Lisinopril [Zestril] 10 mg PO SUTUTH@199909/06/16 [History] Lisinopril [Zestril] 20 mg PO [id number]@199909/06/16 [History] Mupirocin [Bactroban Oint] 1 appl TP BID 09/06/16 [History] Quetiapine Fumarate [Seroquel] 50 mg PO HS 09/06/16 [History] cloNIDine HCl [CloNIDine HCl] 0.1 mg PO BID 09/06/16 [History] Allergies No Known Allergies Allergy (Verified 09/06/16 17:43) All Systems Review: A 10-system review of systems was performed and is negative for pertinent findings except as documented above in the HPI. - Constitutional Constitutional: fatigue, frequent falls, lethargy, weakness (generalized), no chills, no fever(s), no malaise, no night sweats, no weight gain, no weight loss - EENT Eyes: no blurred vision, no loss of vision, no pain - Cardiovascular Cardiovascular: as per HPI - Respiratory Respiratory: dyspnea (esertional), no cough, no hemoptysis, no wheezing - Gastrointestinal Gastrointestinal: nausea, no abdominal pain, no coffee ground emesis, no hematemesis, no hematochezia - Genitourinary Genitourinary: no dysuria, no hematuria - Musculoskeletal Musculoskeletal: back pain (low back pain. chronic), no myalgias - Integumentary Integumentary: no erythema, no rash, no unusual bruising - Neurological Neurological: syncope - Hematological/Lymphatic Hematologic/Lymphatic: no easy bleeding, no easy bruising Physical Examination Vital Signs, Last 4 Hours Temp Pulse Resp BP Pulse Ox 09/08/16 08:38 95 09/08/16 07:37 98.0 F 62 18 142/73 95 General: Conversant, No Apparent Distress HEENT: Atraumatic, Normocephaly Neck: No JVD, Normal carotid pulses (easily palpated) Cardiac: Reg Rate and Rhythm, Normal S1 and S2, Other (He has a 2/6 systolic ejection murmur heard best at the R upper steral border. there is radiation into the neck. Good carotid upstroked. No pulsus parvus et tardus. Heart sounds are somewhat distant.) Lungs: Normal Breath Sounds, No Wheeze, Rales, Rhonchi Neuro: Alert and responsive, No focal deficits noted Abdomen: Soft, Non-Tender Skin: No rashes noted on visualized skin Musculoskeletal: No Chest Wall Tenderness Extremities: No Clubbing, No Cyanosis, No Edema, Other (No calf tenderness. ) Results 09/08/16 05:07 09/08/16 05:07 Lab Results 09/08/16 09/08/16 05:07 05:07 WBC 7.0 Hgb 9.7 L D Hct 30.1 L Plt Count 115 L Sodium 138 Potassium 4.5 Chloride 97 L Carbon Dioxide 33 H BUN 33 H D Creatinine 3.97 H Glucose 120 H Calcium 9.3 - Imaging and Cardiology Chest Xray: report reviewed Echo: report reviewed - EKG Interpretation EKG results cardiology: personally reviewed, other (1st degree AV block) Consult Discharge Plan - Plan Referrals: Kenny Mckenna DO [Primary Care Provider] - 09/15/16 1:00 pm
[2016-09-08] MEDS ORDERED: Perflutren Lipid Microsphere 1.3 ML in 0.9 % Sodium Chloride 8.7 ML IVP ONE (11:01)
--- NOTE | 2016-09-08 13:29 | Event Note ---
Date of Encounter: 09/08/16 Time of Encounter: 13:26 Reviewed records form [facility]. Patient had LHC in march of this year which revealed only minimal CAD. No indication for heart cath at this time. Given the patient's new severe pulmonary hypertension and dilated RV would recommend CTA to r/o PE.
[2016-09-08 14:54] LABS: Folate 17.1 ng/mL (7.0-31.4)
[2016-09-08] MEDS ORDERED: *HR* OxyCODONE/APAP 5/325 TABLET PO ONE (22:24)
[2016-09-09] MEDS: *HR* Heparin 5,000 UNIT/ML VIAL SQ SCH (05:34)
[2016-09-09 06:05] LABS: Basophils % 0.5 %; Eosinophils # 0.4 K/mcL (0.0-0.6); Eosinophils % 6.4 %; Hematocrit 29.7 % (37.5-50.1); Immature Granulocytes % 0.2 % (0-4); Lymphocytes % 18.9 %; Mean Corpuscular HGB Conc 33.7 g/dL (31.6-35.5); Mean Corpuscular Hemoglobin 31.2 pg (28.0-33.3); Mean Corpuscular Volume 92.5 fL (83.0-100.0); Mean Platelet Volume 9.4 fL (9.4-12.4); Monocytes # 0.6 K/mcL (0.0-1.3); Monocytes % 10.4 %; Neutrophils # 3.5 K/mcL (1.6-8.9); Platelet Count 109 K/mcL (140-400); Red Blood Count 3.21 M/mcL (4.19-5.50); Red Cell Distribution Width 13.5 % (11.5-14.5); Segmented Neutrophils % 63.6 %
[2016-09-09 06:18] LABS: Potassium 4.6 mEq/L (3.5-4.5)
[2016-09-09] MEDS ORDERED: 0.9 % Sodium Chloride 250 ML IVC PRN (08:14)
[2016-09-09] MEDS ORDERED: 0.9 % Sodium Chloride 1,000 ML PRIME SCH (08:15)
[2016-09-09] MEDS: Renal Vitamin 1 MG CAPSULE PO SCH (09:04)
[2016-09-09] MEDS: Aspirin Enteric Coated 81 MG Tablet PO SCH (09:04)
--- NOTE | 2016-09-09 09:07 | Cardiology Progress Note ---
Date of Encounter: 09/09/16 Time of Encounter: 09:07 Assessment and Plan (1) Syncope Current Visit: Yes Status: Acute Etiology is still unclear at this time. Repeat TTE reveals a EF of5 0 55% . Moderate with doppler. Initial echo revealed Severe pulmonary hypertension. This is new since previous study. 24 hour telemetry reviewed. has reported pause of 2.6 seconds but appears to be artifact in this section of telemetry. occasional PVCs and no major abnormalities. Unlikely secondary to given normal EF and moderate grade. recommend event monitor for one month and follow up with cardiology after. Qualifiers: Qualified Code(s): R55 - Syncope and collapse (2) Elevated troponin Current Visit: Yes Status: Acute Patient has elevated TN. 0.27 initially and trended down to 0.23. continues to be asymptomatic. Patient has had elevated troponins in the past. However this was after a cardiac arrest/CPR. This is in the setting of ESRD, however given his syncope and symptoms I think that this will need to be evaluated. No indication for cardiac rehab at this time. (3) Aortic stenosis Current Visit: Yes Status: Acute Moderate. Will need outpatient monitoring. Will need repeat echo in one year/ or if he becomes symptomatic prior to this. Qualifiers: Qualified Code(s): I35.0 - Nonrheumatic aortic (valve) stenosis (4) Exertional dyspnea Current Visit: Yes Status: Acute Etiology unclear. possibly from Pulmonary HTN. CTA negative for PE. would consider Pulmonology evaluation. (5) Moderate to severe pulmonary hypertension Current Visit: Yes Status: Acute as stated above. (6) First degree AV block Current Visit: Yes Status: Acute likely from his beta curly. unlikely to be contributing to his syncope. (7) Hyperlipidemia Current Visit: Yes Status: Acute continue lipitor. Qualifiers: Qualified Code(s): E78.5 - Hyperlipidemia, unspecified (8) Pericardial effusion Current Visit: Yes Status: Acute moderate. Chronic. Doubt this is contributing to his syncopal event. (9) Hypertension Current Visit: Yes Status: Acute currently well controlled on current regimen . However he dose have somewhat of an unusual dosage schedule. Appears that he is taking higher dosage of lisinopril on dialysis day. Unsure if this is contributing to syncope. May consider adjusting regimen. Qualifiers: Qualified Code(s): I10 - Essential (primary) hypertension (10) ESRD (end stage renal disease) Current Visit: Yes Status: Acute management per nephrology (11) Diabetes Current Visit: Yes Status: Acute management per primary team. Qualifiers: Qualified Code(s): E11.9 - Type 2 diabetes mellitus without complications Discussion w patient/family: The assessment and plan as outlined above was discussed with the patient and/or family members who expressed understanding and agreement. All questions were answered. Thank you for involving us in the care of your patient. Please call with any questions. Subjective Principal diagnosis: ESRD on dialysis, syncope Interval history: No major evens overnight. Patient states that he has had no chest pain, syncope , presyncope or dizziness overnight. He denies aches or pains. Denies any dyspnea currently. He has no further complaints or concerns at this time. Objective Vital Signs, Last 4 Hours Temp Pulse Resp BP Pulse Ox 09/09/16 07:41 98.1 F 59 18 147/68 96 General: Conversant, No Apparent Distress HEENT: Atraumatic, Normocephaly, Mucus Membranes Moist Neck: No JVD, Normal carotid pulses Cardiac: Reg Rate and Rhythm, Normal S1 and S2, No Murmur (2/6 right upper sternal border that radiates into the neck. Good carotid upstrokes. ) Lungs: Normal Breath Sounds, No Wheeze, Rales, Rhonchi Neuro: Alert and responsive, No focal deficits noted Abdomen: Soft, Non-Tender Skin: No rashes noted on visualized skin Musculoskeletal: No Chest Wall Tenderness Extremities: No Clubbing, No Cyanosis, No Edema, Other (Left Ac fistula present. ) Results 09/09/16 05:46 09/09/16 05:46 Lab Results 09/09/16 09/09/16 05:46 05:46 WBC 5.5 Hgb 10.0 L Hct 29.7 L Plt Count 109 L Sodium 135 L Potassium 4.6 H Chloride 96 L Carbon Dioxide 27 BUN 49 H D Creatinine 4.99 H Glucose 148 H Calcium 9.0 Consult Discharge Plan - Plan Referrals: Kenny Mckenna DO [Primary Care Provider] - 09/15/16 1:00 pm
[2016-09-09] MEDS ORDERED: *HR* OxyCODONE/APAP 5/325 TABLET PO ONE (09:09)
--- NOTE | 2016-09-09 09:12 | Internal Med Progress Note ---
<Bradley Lazcano - Last Filed: 09/09/16 09:04> Date of Encounter: 09/09/16 Time of Encounter: 09:06 - Assessment and plan (1) Syncope Status: Acute Assessment and plan: CXR reviewed- showed vascular congestion with low lung volumes. Head CT: no acute abnormality cervical spine CT: no acute abnormality no prior history of arrhythmia or seizure like activity no shaking or seizure like activity present during loss of consciousness. Etiology likely secondary to aortic stenosis. EKG reviewed: some T wave changes with first degree AV block. Echo shows LVEF 35-40%, EF was normal in 2016. He has severe pulmonary hypertension, mild concentric LVH, moderate aortic stenosis. prelim carotid duplex report is normal. Orthostatics negative. CTA negative for PE Echo with definity shows EF 50-55% atypical septal motion. Plan: Appreciate cardiology recs regarding placement of possible loop recorder. per cardio, no indication for LHC at this time due to prior cath at [facility] revealing minimal CAD. Qualifiers: Syncope type: unspecified Qualified Code(s): R55 - Syncope and collapse (2) Elevated troponin Status: Chronic Assessment and plan: etiology likely secondary to ESRD. patient has had elevated troponins in the past. he denies chest pain at this time. EKG reviewed. There are T wave abnormalities that have been present on prior EKGs. will continue to monitor for any signs of ACS. Appreciate cardiology recs (3) HTN (hypertension) Status: Chronic Assessment and plan: blood pressure currently within normal limits continue home medications atenolol, clonidine, hydralazine, lisinopril Qualifiers: Hypertension type: essential hypertension Qualified Code(s): I10 - Essential (primary) hypertension (4) ESRD (end stage renal disease) on dialysis Status: Chronic Assessment and plan: consult to nephrology to manage hemodialysis. He gets diallysis MWF. patient has not had intradialytic hypotension. PLan: appreciate nephrology recs patient received regularly scheduled dialysis today. strict I/O daily weight continue renal protective strategy. (5) Diabetes Status: Chronic Assessment and plan: admitted with hyperglycemia. A1C 6.6% Plan: Medium dose sliding scale insulin with ACHS accuchecks. 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 mellitus complication status: with kidney complications Diabetes mellitus complication detail: with chronic kidney disease Diabetes mellitus terminal gauger insulin use: with prison use Chronic kidney disease stage: on chronic dialysis Qualified Code(s): E11.22 - Type 2 diabetes mellitus with diabetic chronic kidney disease; N18.6 - End stage renal disease; Z79.4 - alf (current) use of insulin; Z99.2 - Dependence on renal dialysis (6) DVT prophylaxis Status: Acute Assessment and plan: Heparin SQ - Subjective Interval history: 66 year old male evaluated at bedside. patient denies any nausea, vomiting, diarrhea, fever, chills. patient denies any further complaints today. - Constitutional Vitals: Temp Pulse Resp BP Pulse Ox 98.1 F 59 18 147/68 96 09/09/16 07:41 09/09/16 07:41 09/09/16 07:41 09/09/16 07:41 09/09/16 07:41 General appearance: Present: A&O X 3, pleasant, no acute distress, answers questions appropriately - Head Head exam: Present: atraumatic, normocephalic - Neck Neck exam general surgery: Present: supple, trachea midline - Respiratory Respiratory exam: Present: CTAB - Cardiovascular Cardiovascular exam: Present: RRR, +S1, +S2, systolic murmur (+2/6 systolic murmur) - GI/Abdominal GI/Abdominal exam: Present: normal bowel sounds, soft. Absent: distended, tenderness - Extremities Exam Extremities exam: Absent: cyanotic, pedal edema - Neurological Exam Neurological exam: Present: alert, oriented X3, no focal deficits - Psychiatric Psychiatric exam: Present: normal affect, normal mood - Skin Skin exam: Present: intact Internal Medicine: Result - Labs CBC & Chem 7: 09/09/16 05:46 09/09/16 05:46 Labs: Short CBC 09/09/16 Range/Units 05:46 WBC 5.5 (4.3-11.1) K/mcL Hgb 10.0 L (12.9-16.9) g/dL Hct 29.7 L (37.5-50.1) % Plt Count 109 L (140-400) K/mcL Neutrophils # 3.5 (1.6-8.9) K/mcL BMP 09/09/16 05:46 Sodium 135 L Potassium 4.6 H Chloride 96 L Carbon Dioxide 27 BUN 49 H D Creatinine 4.99 H Glucose 148 H Calcium 9.0 - Impressions Impressions Echocardiogram Limited Views 09/08/16 00:00 Impressions: Endocardial border was well seen on this study with use of Definity. LV systolic function estimated at 50-55%. Atypical septal motion. Left Ventricular Wall Motion: Rest Echo Findings All wall segments showed normal motion. Findings: Study Quality * Technically adequate exam. Left Ventricle * Definity echo contrast was used. * LVEF 50-55%. Chest CTA 09/08/16 13:33 IMPRESSION: 1. No evidence of pulmonary embolus 2. No evidence of thoracic aortic dissection. No aneurysm of the ascending thoracic aorta. Minimal ectasia of the proximal descending thoracic aorta. 3. Cardiomegaly with moderate pericardial effusion, probable pulmonary venous hypertension, and trace right pleural effusion D/ / Kevon Guzman MD / Kevon Guzman MD Interpreting Provider: Kevon Guzman MD Consult Discharge Plan - Plan Instructions: Syncope (DC) Additional Instructions: Please wear event monitor Follow up with cardiology follow up with primary care doctor within one week of discharge follow up with nephrology return to the emergency room if you develop chest pain, shortness of breath, or have further syncopal episodes. Referrals: Kenny Mckenna DO [Primary Care Provider] - 09/15/16 1:00 pm Noe Urena MD [Partnered Physician] - Jaret Vee DO [Partnered Physician] - <Alphonse Donahue A - Last Filed: 09/12/16 14:31> Date of Encounter: 09/12/16 - Assessment and plan (1) Aortic stenosis Status: Chronic Qualifiers: Cardiac valve disease etiology: etiology unspecified Qualified Code(s): I35.0 - Nonrheumatic aortic (valve) stenosis (2) Syncope and collapse Status: Acute (3) Moderate to severe pulmonary hypertension Status: Chronic (4) Pericardial effusion Status: Acute (5) Diabetes Status: Chronic 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 mellitus complication status: with kidney complications Diabetes mellitus complication detail: with chronic kidney disease Diabetes mellitus prison insulin use: with prison use Chronic kidney disease stage: on chronic dialysis Qualified Code(s): E11.22 - Type 2 diabetes mellitus with diabetic chronic kidney disease; N18.6 - End stage renal disease; Z79.4 - terminologist (current) use of insulin; Z99.2 - Dependence on renal dialysis (6) Anemia in chronic kidney disease Status: Chronic Qualifiers: Chronic kidney disease stage: on chronic dialysis Qualified Code(s): N18.6 - End stage renal disease; D63.1 - Anemia in chronic kidney disease; Z99.2 - Dependence on renal dialysis - Constitutional Vitals: Temp Pulse Resp BP Pulse Ox 97.7 F 60 20 146/76 95 09/09/16 11:27 09/09/16 11:27 09/09/16 13:00 09/09/16 13:00 09/09/16 11:27 Internal Medicine: Result - Labs CBC & Chem 7: 09/09/16 05:46 09/09/16 05:46 - Attending Attestation I examined this patient and my medical decision-making was reviewed with the Resident Physician on 09/09/16. I agree with the documented findings, disposition and treatment plan as described except to the extent set forth below.
[2016-09-09] MEDS: Insulin LISPRO 300 UNITS/3 ML VIAL SQ SCH ×2 (11:06→14:42)
--- NOTE | 2016-09-09 11:51 | Discharge Summary ---
<Bradley Lazcano - Last Filed: 09/09/16 13:07> Date of Encounter: 09/09/16 Time of Encounter: 09:00 - Discharge Diagnosis (1) Syncope Priority: Primary Status: Acute Qualifiers: Syncope type: unspecified Qualified Code(s): R55 - Syncope and collapse (2) Elevated troponin Priority: Secondary Status: Chronic (3) HTN (hypertension) Priority: Secondary Status: Chronic Qualifiers: Hypertension type: essential hypertension Qualified Code(s): I10 - Essential (primary) hypertension (4) ESRD (end stage renal disease) on dialysis Priority: Secondary Status: Chronic (5) Diabetes Priority: Secondary Status: Chronic 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 mellitus complication status: with kidney complications Diabetes mellitus complication detail: with chronic kidney disease Diabetes mellitus usp insulin use: with usp use Chronic kidney disease stage: on chronic dialysis Qualified Code(s): E11.22 - Type 2 diabetes mellitus with diabetic chronic kidney disease; N18.6 - End stage renal disease; Z79.4 - MCC (current) use of insulin; Z99.2 - Dependence on renal dialysis (6) DVT prophylaxis Priority: Secondary Status: Acute - Discharge Medications Home Medications: Atorvastatin [Lipitor] 40 mg PO HS #30 tablet 02/20/15 [Rx] Aspirin Enteric Coated [Aspirin EC] 81 mg PO DAILY 05/02/16 [History] Calcium Carbonate [Tums] 500 mg PO QID 05/02/16 [History] Insulin NPH, HUMAN [HumuLIN N] 6 unit SQ HS 05/02/16 [History] Insulin NPH, HUMAN [HumuLIN N] 12 unit SQ QAM 05/02/16 [History] Paroxetine [Paxil] 20 mg PO DAILY 05/02/16 [History] Renal Vitamin [Renal Caps Softgel] 1 mg PO DAILY 05/02/16 [History] Acetaminophen [Tylenol Arthritis] 1,300 mg PO Q8H PRN 09/06/16 [History] Atenolol [Tenormin] 25 mg PO QPM 09/06/16 [History] Docusate [Colace] 100 mg PO BID 09/06/16 [History] Hydralazine HCl [Hydralazine HCl] 50 mg PO BID 09/06/16 [History] Lidocaine/Prilocaine CREAM [Emla] 1 appl TP AD PRN 09/06/16 [History] Lisinopril [Zestril] 10 mg PO SUTUTH@199909/06/16 [History] Lisinopril [Zestril] 20 mg PO MOWEFRSA@199909/06/16 [History] Mupirocin [Bactroban Oint] 1 appl TP BID 09/06/16 [History] Quetiapine Fumarate [Seroquel] 50 mg PO HS 09/06/16 [History] cloNIDine HCl [CloNIDine HCl] 0.1 mg PO BID 09/06/16 [History] Allergies/Adverse Reactions: Allergies No Known Allergies Allergy (Verified 09/06/16 17:43) Date of admission: 09/09/16 09:33 Primary care physician: Kenny Mckenna DO - Patient Status Disposition: Home, Self-Care Condition: Fair Overall status at discharge: patient is not back to baseline - Ambulatory Orders Ambulatory Orders: ECG event monitor [ECG] Time Frame: 1 Day, Facility: [facility], Location: Cardiac Rehab - Discharge Instructions Instructions: Syncope (DC) Follow Up With: Kenny Mckenna DO [Primary Care Provider] - 09/15/16 1:00 pm Jaret Vee DO [Partnered Physician] - Noe Urena MD [Partnered Physician] - Forms: ED Satisfaction Letter Additional Instructions: Please wear event monitor Follow up with cardiology follow up with primary care doctor within one week of discharge follow up with nephrology return to the emergency room if you develop chest pain, shortness of breath, or have further syncopal episodes. - Diet and Activity Activity: increase activity as tolerated Diet: diabetic diet, low fat, low cholesterol Hospital course: Mr. Dwyer is a 66 year old male with pMHx of ESRD on hemodialysis MWF, DM, HTN. Patient was admitted to [facility] on 09/06/16 with CC of syncopal episode. He reported lightheadedness prior to the fall and broke his fall with his left arm. He was admitted for further workup. CTA showed no evidence of PE, and moderate pericardial effusion, LVEF 50-55%, atypical septal motion. Bilateral carotid duplex was unremarkable. CXR revealed vascular congestion with low lung volumes. Head CT and cervical spine CT were unremarkable. Patient's orthostatic vitals were negative. He received his regularly scheduled dialysis while inpatient. EKG showed some t wave changes and first degree AV block. Vanessa did have elevated troponins upon admission. He has chronically elevated troponins based on past visits. Cardiology was consulted for further recommendations. Per cardiology, no further LHC was indicated because patient had recently had LHC at [facility] revealing minimal CAD. Cardiology recommended patient have 4 week event monitor at discharge. Patient was evaluated by PT/OT during his stay for deconditioning. He was stable throughout the course of his hospital stay and remained stable at discharge. Please wear event monitor Follow up with cardiology follow up with primary care doctor within one week of discharge follow up with nephrology return to the emergency room if you develop chest pain, shortness of breath, or have further syncopal episodes. - Time Spent with Patient Total time spent providing and/or coordinating discharge services: - Constitutional Vitals: Temp Pulse Resp BP Pulse Ox 97.7 F 60 18 142/74 95 09/09/16 11:27 09/09/16 11:27 09/09/16 11:27 09/09/16 11:35 09/09/16 11:27 General appearance: Present: A&O X 3, pleasant, no acute distress, answers questions appropriately <Alphonse Donahue - Last Filed: 09/09/16 17:22> Date of Encounter: 09/09/16 - Discharge Diagnosis (1) Aortic stenosis Priority: Primary Status: Chronic Qualifiers: Cardiac valve disease etiology: etiology unspecified Qualified Code(s): I35.0 - Nonrheumatic aortic (valve) stenosis (2) Syncope and collapse Priority: Primary Status: Acute (3) Moderate to severe pulmonary hypertension Priority: Secondary Status: Chronic (4) Pericardial effusion Priority: Secondary Status: Acute (5) Diabetes Priority: Secondary Status: Chronic 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 mellitus complication status: with kidney complications Diabetes mellitus complication detail: with chronic kidney disease Diabetes mellitus long term acute care registered nurse insulin use: with long term acute care registered nurse use Chronic kidney disease stage: on chronic dialysis Qualified Code(s): E11.22 - Type 2 diabetes mellitus with diabetic chronic kidney disease; N18.6 - End stage renal disease; Z79.4 - rn long term care (current) use of insulin; Z99.2 - Dependence on renal dialysis (6) Anemia in chronic kidney disease Priority: Secondary Status: Chronic Qualifiers: Chronic kidney disease stage: on chronic dialysis Qualified Code(s): N18.6 - End stage renal disease; D63.1 - Anemia in chronic kidney disease; Z99.2 - Dependence on renal dialysis Procedures/tests Complete & Pending: Procedures Performed prior 72 hours Category Date Time Status ECG event monitor 4 weeks [ECG] Routine Y 09/09/16 14:38 Ordered ECG mobile coffee shop manager [ECG] Routine Y 09/09/16 13:00 Completed Date of admission: 09/09/16 09:33 Primary care physician: Kenny Mckenna DO [place] [facility] course: Mr. Dwyer is a 66 year old male - Time Spent with Patient Total time spent providing and/or coordinating discharge services: 38min - Constitutional Vitals: Temp Pulse Resp BP Pulse Ox 97.7 F 60 20 146/76 95 09/09/16 11:27 09/09/16 11:27 09/09/16 13:00 09/09/16 13:00 09/09/16 11:27 - Attending Attestation I examined this patient and my medical decision-making was reviewed with the Resident Physician on 09/09/16. I agree with the documented findings, disposition and treatment plan as described except to the extent set forth below. Mr. Dwyer was placed in observation for syncopal episode. He has been found to have aortic stenosis. He has been evaluated by cardiology and event monitor placed. Today he feels well. No fever noted. Vitals stable now. He is ready for discharge home. Exam Alert Comfortable Mucus membranes dry Heart reg No wheeze Abd soft Edema present Plan D/C home today Outpatient cardiology follow up.
--- NOTE | 2016-09-09 12:54 | Nephrology Progress Note ---
Date of Encounter: 09/09/16 Time of Encounter: 12:51 - Assessment and Plan (1) ESRD (end stage renal disease) Current Visit: Yes Status: Acute Patient seen on dialysis. HD MWF. Renal dose medications. (2) Diabetes Current Visit: Yes Status: Chronic Per primary team. 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 mellitus complication status: with kidney complications Diabetes mellitus complication detail: with chronic kidney disease Diabetes mellitus exterminator termite insulin use: with intermediate use Chronic kidney disease stage: on chronic dialysis Qualified Code(s): E11.22 - Type 2 diabetes mellitus with diabetic chronic kidney disease; N18.6 - End stage renal disease; Z79.4 - terminal gauger supervisor (current) use of insulin; Z99.2 - Dependence on renal dialysis (3) HTN (hypertension) Current Visit: Yes Status: Chronic Blood pressure reasonably controlled. Qualifiers: Hypertension type: essential hypertension Qualified Code(s): I10 - Essential (primary) hypertension Subjective Principal diagnosis: ESRD on dialysis, syncope Interval history: Patient was seen on dialysis. He has no new complaint. Review of systems is stable. Objective - Vital Signs Vital signs: Vital Signs Temp Pulse Resp BP Pulse Ox 09/09/16 12:20 153/75 09/09/16 12:05 144/74 09/09/16 11:50 139/66 09/09/16 11:35 142/74 09/09/16 11:27 97.7 F 60 18 155/72 95 09/09/16 11:20 155/72 09/09/16 11:05 145/78 09/09/16 10:50 142/75 09/09/16 10:35 137/69 09/09/16 10:20 140/69 09/09/16 10:05 134/61 09/09/16 09:50 140/73 09/09/16 09:35 97.7 F 18 131/76 Intake and Output 09/08/16 09/09/16 09/09/16 23:59 07:59 15:59 Intake Total 600 / 840 Balance 600 / 840 Intake: Oral 0 / 240 Intake, Rinseback and 600 / 600 Flushes Other: Hemodialysis Net Fluid 985 Removed (mL) - General Appearance General appearance: Present: well-developed, well-nourished EENT: Present: ATNC Neck: Present: supple Respiratory: Present: clear Cardiology: Present: no edema, regular rate Integumentary: Present: warm and dry Neurologic: Present: alert and oriented x3 Psychiatric: Present: mood/affect appropriate - Lab 09/09/16 05:46 09/09/16 05:46 Most recent lab results Calcium 9.0 mg/dL (8.6-10.8) 09/09/16 05:46 Phosphorus 3.3 mg/dL (2.3-4.7) 09/08/16 05:07 Magnesium 2.0 mg/dL (1.6-2.6) 09/07/16 04:34 Consult Discharge Plan - Plan Instructions: Syncope (DC) Additional Instructions: Please wear event monitor Follow up with cardiology follow up with primary care doctor within one week of discharge follow up with nephrology return to the emergency room if you develop chest pain, shortness of breath, or have further syncopal episodes. Referrals: Kenny Mckenna DO [Primary Care Provider] - 09/15/16 1:00 pm Noe Urena MD [Partnered Physician] - Jaret Vee DO [Partnered Physician] -
[2016-09-09 13:58] VITALS: BP 146/76
[2016-09-09] MEDS: hydrALAZINE 25 MG TABLET PO SCH (14:40)
[2016-09-09] MEDS: cloNIDine HCl 0.1 MG TABLET PO SCH (14:40)
[2016-09-09] MEDS ORDERED: *HR* Heparin 5,000 UNIT/ML VIAL SQ SCH (16:00)
== END 2016-09-09 15:25 | disposition home or self-care (01) | DRG 312 ==
LOC: 2ANU 17:06 → EMEROO 17:06 → SUATTDRO 20:30 → 2ANU 21:16
PROVIDERS: ADMIT Family Medicine; ATTEND Internal Medicine

== ENCOUNTER 2016-12-05 16:31 | Inpatient (IN) ==
[2016-12-05] MEDS ORDERED: Ipratropium/Albuterol Neb 3 ML IH ONE (17:09)
--- NOTE | 2016-12-05 17:09 | Emergency Department Note ---
Disposition Clinical Impression: Pneumonia Qualifiers: Pneumonia type: due to unspecified organism Laterality: right Lung location: lower lobe of lung Qualified Code(s): J18.1 - Lobar pneumonia, unspecified organism Disposition: Admitted As Inpatient General Adult HPI - General Chief complaint: ED Upper Respiratory Infection Stated complaint: cold symptoms/congestion Time Seen by Provider: 12/05/16 16:56 Source: patient Limitations: no limitations Nursing Notes Reviewed: Yes Vital Signs Reviewed: Yes - History of Present Illness HPI Narrative: Patient presents from urgent care for evaluation of cough and weakness. Patient is a dialysis patient with a history of childhood asthma that he says he outgrew. Patient does not take any sort of inhalers on a daily basis. Patient states over the last week he has felt increasing weakness with increasing shortness of breath as well as productive cough. The patient's symptoms are concerning for possible pneumonia. Patient's lung sounds are with diffuse wheezing and rhonchi. The patient states intermittent chills and sweats at home but no documented fever. Will get blood work as well as a chest x-ray to confirm likely pneumonia. Patiently hospital-acquired pneumonia secondary to dialysis. Patient will be given antibiotics and admitted if lab work confirms clinical suspicion. Pain Scale: 10 - Related Data Home Medications Medication Instructions Recorded Confirmed Aspirin Enteric Coated [Aspirin EC] 81 mg PO DAILY 05/02/16 12/05/16 Calcium Carbonate [Tums] 500 mg PO QID 05/02/16 12/05/16 Insulin NPH, HUMAN [HumuLIN N] 6 unit SQ HS 05/02/16 12/05/16 Insulin NPH, HUMAN [HumuLIN N] 12 unit SQ QAM 05/02/16 12/05/16 Renal Vitamin [Renal Caps Softgel] 1 mg PO DAILY 05/02/16 12/05/16 Atenolol [Tenormin] 25 mg PO QPM 09/06/16 12/05/16 Docusate [Colace] 100 mg PO BID 09/06/16 12/05/16 Hydralazine HCl [Hydralazine HCl] 50 mg PO TID 09/06/16 12/05/16 Lidocaine/Prilocaine CREAM [Emla] 1 appl TP AD PRN 09/06/16 12/05/16 Lisinopril [Zestril] 10 mg PO SUTUTH@2000 09/06/16 12/05/16 Lisinopril [Zestril] 20 mg PO MOWEFRSA@199909/06/16 12/05/16 Quetiapine Fumarate [Seroquel] 50 mg PO HS 09/06/16 12/05/16 Ergocalciferol (VITAMIN D2) 50,000 unit PO QWEEK 12/05/16 12/05/16 [Vitamin D2] PARoxetine HCl [Paroxetine HCl] 40 mg PO DAILY 12/05/16 12/05/16 amLODIPine [Norvasc] 5 mg PO BID 12/05/16 12/05/16 Previous Rx's Medication Instructions Recorded Atorvastatin [Lipitor] 40 mg PO HS #30 tablet 02/20/15 Allergies Allergy/AdvReac Type Severity Reaction Status Date / Time No Known Allergies Allergy Verified 09/06/16 17:43 Review of Systems: GENERAL: ~ fatigue and chills No weight change, change in appetite, thirst, fever HEENT: ~No headache or blurred vision. CARDIOPULMONARY: ~Cough and shortness of breath GASTROINTESTINAL: ~No anorexia, nausea or vomiting. GENITOURINARY: ~No dysuria or pyuria. ENDOCRINE: ~No goiter, lethargy or heat/cold intolerance. HEMATOLOGY/ONCOLOGY: ~No pallor, bruising or bleeding. MUSCULOSKELETAL: ~No change in strength. No swelling. NEUROLOGIC: ~No headache or loss of consciousness. PSYCHIATRIC: ~No change in personality, affect or depression. Past Medical History - Past Medical History Medical history: Reports: asthma, diabetes, dialysis, hypertension, renal disease, syncope, other Surgical history: Reports: cholecystectomy, colectomy, other Psychiatric history: Reports: no psych history - Social History Smoking Status: Never smoker Smokeless Tobacco Status: No Alcohol use: Reports: none Drug use: Reports: none Physical Exam General: Well appearing, nontoxic, no acute distress Head: Normocephalic Atraumatic Eyes: PERRL, EOMI ENT: Airway patent, no stridor Neck: supple, no meningismus Chest: Diffuse wheezing and rhonchi Cardiac: Regular rate and rhythm, no murmurs, rubs or gallops Abdomen: soft, nontender, nondistended; no guarding, rebound, or tenderness to percussion Musculoskeletal: Calves symmetric, nontender, no palpable cord Skin: No rash, normal skin tone Neuro: Alert and Oriented to person, place, and time; No focal deficit, CN 2-12 symmetric and intact - General Limitations: no limitations General appearance: alert, in no apparent distress Course - Consultations Consultation #1: Discussed with hospitalist. Patient accepted for admission. Patient has pneumonia with concern for HCAP Pneumonia. Zosyn and Levaquin and Vancomycin started. Vital Signs Temperature 98.4 F 12/05/16 16:46 Pulse Rate 74 12/05/16 16:46 Respiratory Rate 16 12/05/16 16:46 Blood Pressure 159/74 12/05/16 16:46 O2 Sat by Pulse Oximetry 92 12/05/16 16:46 Temperature 98.2 F 12/06/16 11:07 Pulse Rate 83 12/06/16 11:07 Respiratory Rate 30 12/06/16 15:23 Blood Pressure 146/69 12/06/16 11:07 O2 Sat by Pulse Oximetry 97 12/06/16 15:23 Oxygen Delivery Oxygen Delivery Nasal Cannula Medical Decision Making - Medical Records Medical records reviewed: Yes I reviewed the patient's medical records. - Lab Data Lab results reviewed: Yes I reviewed the patient's lab results. Result diagrams: 12/06/16 04:11 12/06/16 04:11 Lab Results 12/05/16 12/05/16 12/05/16 Range/Units 17:18 17:18 17:18 WBC 6.1 (4.3-11.1) K/mcL RBC 3.37 L (4.19-5.50) M/mcL Hgb 10.4 L (12.9-16.9) g/dL Hct 31.8 L (37.5-50.1) % MCV 94.4 (83.0-100.0) fL MCH 30.9 (28.0-33.3) pg MCHC 32.7 (31.6-35.5) g/dL RDW 13.2 (11.5-14.5) % Plt Count 154 (140-400) K/mcL MPV 9.2 L (9.4-12.4) fL Immature Gran % 0.7 (0-4) % Seg Neutrophils % 74.1 % Lymphocytes % 8.2 % Monocytes % 12.8 % Eosinophils % 3.9 % Basophils % 0.3 % Neutrophils # 4.5 (1.6-8.9) K/mcL Lymphocytes # 0.5 L (0.6-4.6) K/mcL Monocytes # 0.8 (0.0-1.3) K/mcL Eosinophils # 0.2 (0.0-0.6) K/mcL Basophils # 0.0 (0.0-0.2) K/mcL Sodium 142 (136-145) mEq/L Potassium 3.6 (3.5-4.5) mEq/L Chloride 100 (98-109) mEq/L Carbon Dioxide 29 (19-29) mEq/L BUN 32 H (8-26) mg/dL Creatinine 4.11 H (0.72-1.25) mg/dL Est GFR ( Amer) 18 L (> 60) Est GFR (Non-Af Amer) 15 L (> 60) BUN/Creatinine Ratio 8 (6-26) Glucose 210 H (70-99) mg/dL Calculated Osmolality 307 H (280-300) Calcium 8.8 (8.6-10.8) mg/dL Total Bilirubin 0.7 (0.2-1.2) mg/dL AST 18 (5-34) Units/L ALT 16 (0-55) Units/L Alkaline Phosphatase 89 (38-126) Units/L Troponin I 0.05 H* (0-0.03) ng/mL B-Natriuretic Peptide (0-100) pg/mL Serum Total Protein 6.8 (6.0-8.3) g/dL Albumin 3.3 L (3.5-5.0) g/dL Globulin 3.5 (2.4-3.5) g/dL Albumin/Globulin Ratio 0.9 L (1.1-2.2) 12/05/16 Range/Units 17:18 WBC (4.3-11.1) K/mcL RBC (4.19-5.50) M/mcL Hgb (12.9-16.9) g/dL Hct (37.5-50.1) % MCV (83.0-100.0) fL MCH (28.0-33.3) pg MCHC (31.6-35.5) g/dL RDW (11.5-14.5) % Plt Count (140-400) K/mcL MPV (9.4-12.4) fL Immature Gran % (0-4) % Seg Neutrophils % % Lymphocytes % % Monocytes % % Eosinophils % % Basophils % % Neutrophils # (1.6-8.9) K/mcL Lymphocytes # (0.6-4.6) K/mcL Monocytes # (0.0-1.3) K/mcL Eosinophils # (0.0-0.6) K/mcL Basophils # (0.0-0.2) K/mcL Sodium (136-145) mEq/L Potassium (3.5-4.5) mEq/L Chloride (98-109) mEq/L Carbon Dioxide (19-29) mEq/L BUN (8-26) mg/dL Creatinine (0.72-1.25) mg/dL Est GFR ( Amer) (> 60) Est GFR (Non-Af Amer) (> 60) BUN/Creatinine Ratio (6-26) Glucose (70-99) mg/dL Calculated Osmolality (280-300) Calcium (8.6-10.8) mg/dL Total Bilirubin (0.2-1.2) mg/dL AST (5-34) Units/L ALT (0-55) Units/L Alkaline Phosphatase (38-126) Units/L Troponin I (0-0.03) ng/mL B-Natriuretic Peptide 3897 H (0-100) pg/mL Serum Total Protein (6.0-8.3) g/dL Albumin (3.5-5.0) g/dL Globulin (2.4-3.5) g/dL Albumin/Globulin Ratio (1.1-2.2) - Radiology Data Radiology results reviewed: Yes I reviewed the patient's radiology results. Chest X-Ray 12/05/16 17:08 IMPRESSION: 1. Right base airspace opacity with small effusion concerning for infection in the appropriate clinical setting. 2. Mild vascular indistinctness may reflect mild interstitial edema. 3. Massive cardiomegaly. D/ / 12/05/2016 17:54:57 Lili Walker MD / lorenay Interpreting Provider: Lili Walker MD Attestation Statement - Attestation Attestation: I examined this patient and my medical decision-making was reviewed with the Resident Physician, Dr. Youngblood. I agree with the documented findings, disposition and treatment plan as described except to the extent set forth below. Pt is a 66 yo wm, with hx ESRD on HD, DM, HTN who presents to the ER with c/o URI sxs and cough with grad worsening SOB and hypoxia. Pt with no hx COPD. Pt denies any CP/press/heaviness. No diaphoresis, no N/V/post-tussive emesis. No other assocd sxs. I agree with pt's PE findings as documeted. Pt hypoxic on RA on arrival at 92%. Pt with clinical presentation concerning for possible pneumonia. CXR showed RLL infiltrate with sm effusion. Pt had blood cxs and antibx initiated in ED for HCAP. Dr. Youngblood performed a bedside US to r/o pericardial effusion, due to massive CM on CXR. Us neg. Pt with elev trop, but likely due to ESRD, and elev Scr. EKG without ischemia and no CP. Will continue to monitor. Case d/w hospitalist who accepted pt for admission.
[2016-12-05 17:28] LABS: Basophils % 0.3 %; Eosinophils # 0.2 K/mcL (0.0-0.6); Eosinophils % 3.9 %; Hematocrit 31.8 % (37.5-50.1); Hemoglobin 10.4 g/dL (12.9-16.9); Immature Granulocytes % 0.7 % (0-4); Lymphocytes # 0.5 K/mcL (0.6-4.6); Lymphocytes % 8.2 %; Mean Corpuscular HGB Conc 32.7 g/dL (31.6-35.5); Mean Corpuscular Hemoglobin 30.9 pg (28.0-33.3); Mean Corpuscular Volume 94.4 fL (83.0-100.0); Mean Platelet Volume 9.2 fL (9.4-12.4); Monocytes # 0.8 K/mcL (0.0-1.3); Monocytes % 12.8 %; Neutrophils # 4.5 K/mcL (1.6-8.9); Platelet Count 154 K/mcL (140-400); Red Blood Count 3.37 M/mcL (4.19-5.50); Red Cell Distribution Width 13.2 % (11.5-14.5); Segmented Neutrophils % 74.1 %
[2016-12-05 17:46] LABS: Albumin 3.3 g/dL (3.5-5.0); Albumin/Globulin Ratio 0.9 (1.1-2.2); Bilirubin,Total 0.7 mg/dL (0.2-1.2); Calcium 8.8 mg/dL (8.6-10.8); Globulin 3.5 g/dL (2.4-3.5); Potassium 3.6 mEq/L (3.5-4.5); Total Protein 6.8 g/dL (6.0-8.3)
[2016-12-05] MEDS ORDERED: Piperacillin/Tazobactam 3.375 GM in D5% in Water (Mini-Bag+) 100 ML IVPB ONE ×2 (20:54→23:45)
[2016-12-05] MEDS ORDERED: Levofloxacin 750 MG/150 ML 750 MG/150 ML BAG IVPB ONE (20:54)
[2016-12-05] MEDS ORDERED: Vancomycin 1,500 MG in D5% in Water 250 ML IVPB ONE (20:54)
[2016-12-05] MEDS ORDERED: Albuterol 2.5 MG/3 ML NEBULIZER IH PRN (21:54)
[2016-12-05] MEDS ORDERED: *HR* Dextrose 50 % in Water (Syg) 50 ML SYRINGE IVP PRN (21:56)
[2016-12-05] MEDS ORDERED: Dextrose Gel 15 GM PO PRN ×2 (21:56)
[2016-12-05] MEDS ORDERED: D5% in Water 1,000 ML IVC PRN (21:56)
[2016-12-05] MEDS ORDERED: Naloxone 0.4 MG/ML INJ IVP PRN (21:59)
[2016-12-05] MEDS ORDERED: Acetaminophen 325 MG TABLET PO PRN (21:59)
[2016-12-05] MEDS ORDERED: *HR* Morphine 2 MG/ML SYRINGE IVP PRN (21:59)
--- NOTE | 2016-12-05 22:18 | Internal Med History&Physical ---
Date of Encounter: 12/06/16 Time of Encounter: 22:16 Assessment and Plan (1) Pneumonia Current visit: Yes Status: Acute Blood culture drawn in ER. IV Zosyn as started. In the ER he was also given a dose of vancomycin and Levaquin which is not continued. Patient is afebrile and his white cell count is normal Qualifiers: Pneumonia type: due to unspecified organism Laterality: right Lung location: lower lobe of lung Qualified Code(s): J18.1 - Lobar pneumonia, unspecified organism (2) COPD exacerbation Current visit: Yes Status: Acute Patient is not known to have COPD neither he is a smoker. In any case he has come in with her quite significant wheezing and dyspnea. We will start him on IV steroid med nebs Mucinex. He should be referred for outpatient pulmonary function test. (3) Acute systolic heart failure Current visit: Yes Status: Acute Chest x-ray showed interstitial edema. He is a dialysis patient and probably need another dialysis. Previous echocardiogram showed moderate fixed stenosis EF 50% LV diastolic dysfunction. (4) ESRD (end stage renal disease) Current visit: Yes Status: Acute Consult nephrology repeat labs including CMP magnesium phosphate in the morning (5) Diabetes Current visit: Yes Status: Chronic Accu-Chek 4 times a day with sliding scale coverage 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 mellitus complication status: with kidney complications Diabetes mellitus complication detail: with chronic kidney disease Diabetes mellitus long winder tender insulin use: with long winder tender use Chronic kidney disease stage: on chronic dialysis Qualified Code(s): E11.22 - Type 2 diabetes mellitus with diabetic chronic kidney disease; N18.6 - End stage renal disease; Z99.2 - Dependence on renal dialysis; Z99.2 - Dependence on renal dialysis; Z99.2 - Dependence on renal dialysis; N18.6 - End stage renal disease; N18.6 - End stage renal disease; N18.6 - End stage renal disease ; Z79.4 - longterm (current) use of insulin; Z79.4 - longterm (current) use of insulin; Z79.4 - longterm (current) use of insulin; Z79.4 - longterm ( current) use of insulin; Z99.2 - Dependence on renal dialysis (6) Hypertension Current visit: Yes Status: Acute Resume home medication daily monitoring Qualifiers: Hypertension type: essential hypertension Qualified Code(s): I10 - Essential (primary) hypertension Internal Medicine - H&P: HPI Chief complaint: Shortness of breath Admitted From: Home Plans for Post Hospital Care: Home History of present illness: Mr. Dwyer is a 66 year old male past medical history significant for ESRD, diabetes hypertension dyslipidemia presented with shortness of breath to the local urgent care. In ER chest x-ray was done which showed right lower lobe infiltrates and some interstitial edema. He denies any chest pain though his troponin is mildly elevated. Patient has been experiencing cough with some phlegm and worsening dyspnea. No headache neck pain fever though he had some chills at home. No nausea vomiting diarrhea dysuria urgency frequency or hematuria hematemesis melena syncope dizziness or any other symptoms otherwise. Past Med Surg Social Fam HX - Past Medical History Medical history: asthma, diabetes, dialysis, hypertension, renal disease, syncope, other Psychiatric history: no psych history - Past Surgical History Surgical History: cholecystectomy, colectomy, other - Social History Smoking Status: Never smoker Smokeless Tobacco Status: No Alcohol use: none Drug use: none - Family History Mother Living Status: Hx Family Cardiac Disorders: Yes Hx Family Cancer: Yes (metastic breast cancer) Internal Medicine - H&P: Meds Atorvastatin [Lipitor] 40 mg PO HS #30 tablet 02/20/15 [Rx] Aspirin Enteric Coated [Aspirin EC] 81 mg PO DAILY 05/02/16 [History] Calcium Carbonate [Tums] 500 mg PO QID 05/02/16 [History] Insulin NPH, HUMAN [HumuLIN N] 6 unit SQ HS 05/02/16 [History] Insulin NPH, HUMAN [HumuLIN N] 12 unit SQ QAM 05/02/16 [History] Renal Vitamin [Renal Caps Softgel] 1 mg PO DAILY 05/02/16 [History] Atenolol [Tenormin] 25 mg PO QPM 09/06/16 [History] Docusate [Colace] 100 mg PO BID 09/06/16 [History] Hydralazine HCl [Hydralazine HCl] 50 mg PO TID 09/06/16 [History] Lidocaine/Prilocaine CREAM [Emla] 1 appl TP AD PRN 09/06/16 [History] Lisinopril [Zestril] 10 mg PO SUTUTH@2000 09/06/16 [History] Lisinopril [Zestril] 20 mg PO MOWEFRSA@199909/06/16 [History] Quetiapine Fumarate [Seroquel] 50 mg PO HS 09/06/16 [History] Ergocalciferol (VITAMIN D2) [Vitamin D2] 50,000 unit PO QWEEK 12/05/16 [History] PARoxetine HCl [Paroxetine HCl] 40 mg PO DAILY 12/05/16 [History] amLODIPine [Norvasc] 5 mg PO BID 12/05/16 [History] 3 Allergy/AdvReac Type Severity Reaction Status Date / Time No Known Allergies Allergy Verified 09/06/16 17:43 All Systems PM: A 10-system review of systems was performed and is negative for pertinent findings except as documented above in the HPI. - Constitutional Constitutional: no chills, no fever(s), no night sweats - EENT Eyes: no change in vision, no discharge, no pain, no photophobia Ears: no ear discharge, no ear pain, no tinnitus Nose, mouth and throat: no dysphagia, no nasal discharge, no neck pain, no sore throat - Cardiovascular Cardiovascular ROS IM: dyspnea, no chest pain, no diaphoresis, no lightheadedness, no palpitations, no syncope - Respiratory Respiratory: cough, dyspnea, wheezing, no excessive phlegm production - Gastrointestinal Gastrointestinal: no abdominal pain, no diarrhea, no hematemesis, no hematochezia, no melena, no nausea, no vomiting - Musculoskeletal Musculoskeletal ROS IM: no numbness, no tingling - Integumentary Integumentary IM: no rash, no unusual bruising - Neurological Neurological ROS: no confusion, no convulsions, no focal weakness, no numbness, no tingling, no tremor(s) - Hematologic/Lymphatic Hematologic/Lymphatic: no easy bruising - Constitutional Vitals: Temp Pulse Resp BP Pulse Ox 98.4 F 76 16 160/88 98 12/05/16 16:46 12/05/16 21:53 12/05/16 21:53 12/05/16 21:53 12/05/16 21:53 General appearance: Present: A&O X 3, no acute distress, answers questions appropriately - Head Head exam: Present: atraumatic, normocephalic - Eye Eye exam: Present: PERRL, conjuntiva pink, sclera anicteric Pupils: Present: PERRL - Neck Neck exam general surgery: Present: supple, trachea midline. Absent: lymphadenopathy - Respiratory Respiratory exam: Present: decreased breath sounds, prolonged expiratory phase, wheezes. Absent: accessory muscle use, rales, rhonchi - Cardiovascular Cardiovascular exam: Present: RRR, +S1, +S2. Absent: diastolic murmur, gallop, rubs, systolic murmur - GI/Abdominal GI/Abdominal exam: Present: normal bowel sounds, soft, no peritoneal signs. Absent: distended, tenderness - Extremities Exam Extremities exam: Present: warm, radial pulses palpable and symmetrical. Absent : calf tenderness, cyanotic, pedal edema - Neurological Exam Neurological exam: Present: CN II-XII intact, oriented X3, no focal deficits. Absent: pronater drift, facial droop, speech deficit - Skin Skin exam: Present: dry, intact Internal Med - H&P Results - Labs CBC & Chem 7: 12/05/16 17:18 12/05/16 17:18
[2016-12-05] MEDS: Insulin LISPRO 300 UNITS/3 ML VIAL SQ SCH ×2 (22:35→23:01)
[2016-12-05] MEDS: Renal Vitamin 1 MG CAPSULE PO SCH (23:00)
[2016-12-05] MEDS: hydrALAZINE 25 MG TABLET PO SCH (23:00)
[2016-12-05] MEDS: Ipratropium/Albuterol Neb 3 ML IH SCH (23:40)
[2016-12-06 01:37] LABS: Hemoglobin A1C 6.5 %
[2016-12-06] MEDS: Ipratropium/Albuterol Neb 3 ML IH SCH ×4 (04:28→22:07)
[2016-12-06 05:08] LABS: Basophils % 0.4 %; Eosinophils # 0.2 K/mcL (0.0-0.6); Hematocrit 31.6 % (37.5-50.1); Hemoglobin 10.2 g/dL (12.9-16.9); Immature Granulocytes % 0.6 % (0-4); Lymphocytes # 0.7 K/mcL (0.6-4.6); Lymphocytes % 15.3 %; Mean Corpuscular HGB Conc 32.3 g/dL (31.6-35.5); Mean Corpuscular Hemoglobin 30.9 pg (28.0-33.3); Mean Corpuscular Volume 95.8 fL (83.0-100.0); Mean Platelet Volume 9.7 fL (9.4-12.4); Monocytes # 0.6 K/mcL (0.0-1.3); Monocytes % 13.6 %; Neutrophils # 3.1 K/mcL (1.6-8.9); Platelet Count 147 K/mcL (140-400); Red Cell Distribution Width 13.2 % (11.5-14.5); Segmented Neutrophils % 66.1 %
[2016-12-06] MEDS: *HR* Heparin 5,000 UNIT/ML VIAL SQ SCH ×2 (05:40→17:01)
[2016-12-06 06:25] LABS: Albumin 3.1 g/dL (3.5-5.0); Bilirubin,Total 0.7 mg/dL (0.2-1.2); Calcium 8.6 mg/dL (8.6-10.8); Magnesium 1.9 mg/dL (1.6-2.6); Phosphorous 4.6 mg/dL (2.3-4.7); Potassium 3.6 mEq/L (3.5-4.5); Total Protein 6.1 g/dL (6.0-8.3)
[2016-12-06] MEDS ORDERED: Piperacillin/Tazobactam 3.375 GM in D5% in Water (Mini-Bag+) 100 ML IVPB SCH ×2 (08:00)
[2016-12-06] MEDS: methylPREDNISolone 125 MG/2 ML VIAL IVP SCH ×3 (08:11→23:17)
[2016-12-06] MEDS: Insulin LISPRO 300 UNITS/3 ML VIAL SQ SCH ×4 (08:11→21:31)
[2016-12-06] MEDS: Aspirin Enteric Coated 81 MG Tablet PO SCH (08:12)
[2016-12-06] MEDS: Renal Vitamin 1 MG CAPSULE PO SCH (08:12)
[2016-12-06] MEDS: amLODIPine 5 MG TABLET PO SCH ×2 (08:12→21:31)
[2016-12-06] MEDS: hydrALAZINE 25 MG TABLET PO SCH ×3 (08:12→21:31)
--- NOTE | 2016-12-06 10:53 | Nephrology Consult Note ---
Date of Encounter: 12/06/16 Time of Encounter: 10:51 Assessment and Plan (1) ESRD (end stage renal disease) on dialysis Current Visit: No Status: Chronic Plan for HD tomorrow Renal diet-ordered Stict I/Os-ordered Avoid nephrotoxins if possible (2) Pneumonia Current Visit: Yes Status: Acute per primary team Qualifiers: Pneumonia type: due to unspecified organism Laterality: right Lung location: lower lobe of lung Qualified Code(s): J18.1 - Lobar pneumonia, unspecified organism (3) Diabetes Current Visit: No Status: Chronic per primary team 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 mellitus complication status: with kidney complications Diabetes mellitus complication detail: with chronic kidney disease Diabetes mellitus basket hand braider insulin use: with basket hand braider use Chronic kidney disease stage: on chronic dialysis Qualified Code(s): E11.22 - Type 2 diabetes mellitus with diabetic chronic kidney disease; N18.6 - End stage renal disease; Z79.4 - [facility] (current) use of insulin; Z99.2 - Dependence on renal dialysis History of Present Illness - Reason for Consult Consult date: 12/06/16 - Chief Complaint pneumonia, ESRD on dialysis - History of Present Illness Mr. Dwyer is a 66 year old male well known to our practice with a past medical history significant for ESRD, diabetes hypertension dyslipidemia who presented with shortness of breath to the local urgent care. In ER chest x-ray was done which showed right lower lobe infiltrates and some interstitial edema. Patient did receive his full dialysis treatment yesterday at [facility]. Nephrology has been consulted to manage his HD needs while hospitalized. Past Med Surg Social Fam HX - Past Medical History Medical history: asthma, diabetes, dialysis, hypertension, renal disease, syncope, other Psychiatric history: no psych history - Past Surgical History Surgical History: cholecystectomy, colectomy, other - Social History Smoking Status: Never smoker Smokeless Tobacco Status: No Alcohol use: none Drug use: none - Family History Mother Living Status: Hx Family Cardiac Disorders: Yes Hx Family Cancer: Yes (metastic breast cancer) Medications and Allergies Atorvastatin [Lipitor] 40 mg PO HS #30 tablet 02/20/15 [Rx] Aspirin Enteric Coated [Aspirin EC] 81 mg PO DAILY 05/02/16 [History] Calcium Carbonate [Tums] 500 mg PO QID 05/02/16 [History] Insulin NPH, HUMAN [HumuLIN N] 6 unit SQ HS 05/02/16 [History] Insulin NPH, HUMAN [HumuLIN N] 12 unit SQ QAM 05/02/16 [History] Renal Vitamin [Renal Caps Softgel] 1 mg PO DAILY 05/02/16 [History] Atenolol [Tenormin] 25 mg PO QPM 09/06/16 [History] Docusate [Colace] 100 mg PO BID 09/06/16 [History] Hydralazine HCl [Hydralazine HCl] 50 mg PO TID 09/06/16 [History] Lidocaine/Prilocaine CREAM [Emla] 1 appl TP AD PRN 09/06/16 [History] Lisinopril [Zestril] 10 mg PO SUTUTH@199909/06/16 [History] Lisinopril [Zestril] 20 mg PO MOWEFRSA@199909/06/16 [History] Quetiapine Fumarate [Seroquel] 50 mg PO HS 09/06/16 [History] Ergocalciferol (VITAMIN D2) [Vitamin D2] 50,000 unit PO QWEEK 12/05/16 [History] PARoxetine HCl [Paroxetine HCl] 40 mg PO DAILY 12/05/16 [History] amLODIPine [Norvasc] 5 mg PO BID 12/05/16 [History] 3 Allergy/AdvReac Type Severity Reaction Status Date / Time No Known Allergies Allergy Verified 09/06/16 17:43 Review of Systems All Systems: reviewed and no additional remarkable complaints except as stated Constitutional: chills, malaise, no fever(s), no headache(s) Cardiovascular: dyspnea, no chest pain Respiratory: cough, dyspnea, excessive phlegm production, change in phlegm color Gastrointestinal: no vomiting Neurological: no behavioral changes Exam - Vital Signs Vital signs: Initial Vital Signs Temp Pulse Resp BP Pulse Ox 98.4 F 74 16 159/74 92 12/05/16 16:46 12/05/16 16:46 12/05/16 16:46 12/05/16 16:46 12/05/16 16:46 Vital Signs - Last 8 Hours Temp Pulse Resp BP Pulse Ox 12/06/16 10:30 32 93 12/06/16 08:23 93 12/06/16 07:09 98.1 F 82 32 166/72 93 12/06/16 04:28 18 95 12/06/16 03:18 97.8 F 69 16 142/73 88 Intake and Output 12/05/16 12/06/16 12/06/16 23:59 07:59 15:59 Intake Total 240 / 240 Output Total 150 / 150 Balance 90 / 90 Intake: Oral 240 / 240 Output: Urine 150 / 150 Other: Meal Breakfast Percent of Meal Consumed 50% Weight 92.4 kg 92.4 kg Blood Glucose* 160 174 Patient Weight 12/06/16 23:59 Weight 92.4 kg - General Appearance General appearance: well-developed, well-nourished EENT: ATNC, mucous membranes moist, hearing intact, vision intact Neck: supple Respiratory: clear Cardiology: no edema, normal S1, normal S2 - Dialysis Access Dialysis Vascular Access: Arteriovenous Fistula Gastrointestinal: no tenderness, no guarding Integumentary: warm and dry Neurologic: alert and oriented x3 Psychiatric: mood/affect appropriate, cooperative Results - Lab Results 12/06/16 04:11 12/06/16 04:11 Most recent lab results Calcium 8.6 mg/dL (8.6-10.8) 12/06/16 04:11 Phosphorus 4.6 mg/dL (2.3-4.7) 12/06/16 04:11 Magnesium 1.9 mg/dL (1.6-2.6) 12/06/16 04:11 Consult Discharge Plan - Plan Referrals: Kenny Mckenna DO [Primary Care Provider] -
--- NOTE | 2016-12-06 10:57 | Internal Med Progress Note ---
Date of Encounter: 12/06/16 Time of Encounter: 10:56 - Assessment and plan (1) End stage kidney disease Current Visit: Yes Status: Chronic Assessment and plan: With fluid overload and edema by CXR Renal is following Patient needs HD for fluid overload, will defer to nephrology (2) Acute respiratory failure Current Visit: Yes Status: Acute Assessment and plan: Tachypnea, hypoxia, CXR with pneumonia and Pulm edema IV lasix 80mg stat Place on BIPAP High risk for decompensation and mechanical ventilation Monitor closely Qualifiers: Respiratory failure complication: hypoxia Qualified Code(s): J96.01 - Acute respiratory failure with hypoxia (3) Diabetes Current Visit: Yes Status: Chronic Assessment and plan: FS acceptable for now Continue sliding scale insulin FS ACHS ADA diet 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 mellitus complication status: with kidney complications Diabetes mellitus complication detail: with chronic kidney disease Diabetes mellitus exterminator helper insulin use: with half-way use Chronic kidney disease stage: on chronic dialysis Qualified Code(s): E11.22 - Type 2 diabetes mellitus with diabetic chronic kidney disease; N18.6 - End stage renal disease; 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; Z99.2 - Dependence on renal dialysis (4) Pneumonia Current Visit: Yes Status: Acute Assessment and plan: Continue Zosyn, sputum for culture Follow blood culture Repeat CXR am to assess edema Qualifiers: Pneumonia type: due to unspecified organism Laterality: right Lung location: lower lobe of lung Qualified Code(s): J18.1 - Lobar pneumonia, unspecified organism (5) HTN (hypertension) Current Visit: Yes Status: Chronic Assessment and plan: Continue current meds Qualifiers: Hypertension type: essential hypertension Qualified Code(s): I10 - Essential (primary) hypertension (6) Anemia in chronic kidney disease Current Visit: Yes Status: Chronic Assessment and plan: HB stable, continue EPO Qualifiers: Chronic kidney disease stage: on chronic dialysis Qualified Code(s): N18.6 - End stage renal disease; D63.1 - Anemia in chronic kidney disease; Z99.2 - Dependence on renal dialysis (7) Aortic stenosis Current Visit: Yes Status: Chronic Assessment and plan: per ECHO 10/2016. Moderate . No indication for intervention at this time Qualifiers: Cardiac valve disease etiology: etiology unspecified Qualified Code(s): I35.0 - Nonrheumatic aortic (valve) stenosis (8) Moderate to severe pulmonary hypertension Current Visit: No Status: Chronic (9) Hyperlipidemia Current Visit: Yes Status: Chronic Assessment and plan: Continue home meds Qualifiers: Hyperlipidemia type: unspecified Qualified Code(s): E78.5 - Hyperlipidemia , unspecified (10) COPD exacerbation Current Visit: Yes Status: Acute Assessment and plan: Duonebs, solumedrol, continue, continue Zosyn (11) CHF (congestive heart failure) Current Visit: Yes Status: Chronic Assessment and plan: Strict I/O lasix 80mg daily Fluid restriction BiPAP for pulm edema Continue home meds Qualifiers: Congestive heart failure type: diastolic Congestive heart failure chronicity: acute on chronic Qualified Code(s): I50.33 - Acute on chronic diastolic (congestive) heart failure (12) Elevated troponin Current Visit: Yes Status: Acute Assessment and plan: Adynamic, no CP, patient with known CHFpEF admitted with exacerbation with BNP > 3000 and hypoxia Elevated troponin possibly due to demand - Subjective Interval history: Seen and evaluated at bedside with partner and family They state his symptoms started 3 days ago, but he has been deconditioned and weak for about 6 month Being managed for acute on chronic CHF and Pneumonia Patient is tachypneic and unable to complete sentences - Constitutional Vitals: Temp Pulse Resp BP Pulse Ox 98.1 F 82 32 166/72 93 12/06/16 07:09 12/06/16 07:09 12/06/16 10:30 12/06/16 07:09 12/06/16 10:30 General appearance: Present: A&O X 3, pleasant, no acute distress, answers questions appropriately - Head Head exam: Present: atraumatic, normocephalic - Eye Eye exam: Present: PERRL, conjuntiva pink, sclera anicteric Pupils: Present: PERRL - Neck Neck exam general surgery: Present: supple, trachea midline. Absent: lymphadenopathy - Respiratory Respiratory exam: Present: rales, rhonchi, wheezes - Cardiovascular Cardiovascular exam: Present: RRR, +S1, +S2. Absent: diastolic murmur, gallop, rubs, systolic murmur - GI/Abdominal GI/Abdominal exam: Present: normal bowel sounds, soft, no peritoneal signs. Absent: distended, tenderness - Extremities Exam Extremities exam: Present: warm, radial pulses palpable and symmetrical. Absent : calf tenderness, cyanotic, pedal edema - Neurological Exam Neurological exam: Present: alert, CN II-XII intact, oriented X3, no focal deficits. Absent: pronater drift, facial droop, speech deficit - Skin Skin exam: Present: dry, intact Internal Medicine: Result - Labs CBC & Chem 7: 12/06/16 04:11 12/06/16 04:11 Labs: Short CBC 12/06/16 Range/Units 04:11 WBC 4.7 (4.3-11.1) K/mcL Hgb 10.2 L (12.9-16.9) g/dL Hct 31.6 L (37.5-50.1) % Plt Count 147 (140-400) K/mcL Neutrophils # 3.1 (1.6-8.9) K/mcL BMP 12/06/16 04:11 Sodium 141 Potassium 3.6 Chloride 100 Carbon Dioxide 28 BUN 37 H Creatinine 4.64 H Glucose 167 H Calcium 8.6 Cardiac Enzymes 12/05/16 12/06/16 Range/Units 22:47 04:11 Troponin I 0.05 H* 0.04 H* (0-0.03) ng/mL Liver Function 12/06/16 Range/Units 04:11 Total Bilirubin 0.7 (0.2-1.2) mg/dL AST 17 (5-34) Units/L ALT 15 (0-55) Units/L Alkaline Phosphatase 81 (38-126) Units/L Albumin 3.1 L (3.5-5.0) g/dL Consult Discharge Plan - Plan Referrals: Kenny Mckenna DO [Primary Care Provider] - 12/15/16 1:00 pm (Please follow up as schedule...)
[2016-12-06] MEDS ORDERED: Furosemide 40 MG/4 ML VIAL IVP ONE (11:04)
[2016-12-06] MEDS ORDERED: *HR* OxyCODONE Immed Rel 5 MG TABLET PO PRN (12:46)
[2016-12-06 15:10] LABS: Hepatitis B Surface Antibody 0.92 mIU/mL; Hepatitis B Surface Antigen Nonreactive (Nonreactive)
[2016-12-06] MEDS: Piperacillin/Tazobactam 3.375 GM in D5% in Water (Mini-Bag+) 100 ML IVPB SCH (17:02)
--- NOTE | 2016-12-06 17:22 | Electrocardiograph Report ---
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
[2016-12-07] MEDS ORDERED: Vancomycin 1,500 MG in D5% in Water 250 ML IVPB SCH
--- NOTE | 2016-12-07 00:04 | Event Note ---
Date of Encounter: 12/07/16 Time of Encounter: 00:01 Called to see patient for concerns of excessive somnolence. Glucose was checked by RN, and it was > 200. I saw and examined patient. He awakens to loud verbal stimuli and pain. He remains on BiPap. I ordered ABG and blood cultures (these were not done on admission) due to patient having pneumonia. I asked RN to contact me with any status change and with ABG results.
[2016-12-07 00:25] LABS: ABG Base Excess 6 mEq/L (-2 to 3); ABG HCO3 31 mEq/L (21-27); ABG Oxygen Saturation 91 % (95-98); ABG PCO2 46 mmHg (35-45); ABG PH 7.43 pH Units (7.32-7.45); ABG PO2 59 mmHg (85-104); ABG TCO2 32 mEq/L (20-26); Blood Gas PEEP 6 cm H2O; Blood Gas Pressure Support 12 cm H2O
[2016-12-07 01:14] LABS: Hematocrit 30.3 % (37.5-50.1); Hemoglobin 10.1 g/dL (12.9-16.9); Mean Corpuscular HGB Conc 33.3 g/dL (31.6-35.5); Mean Corpuscular Hemoglobin 31.6 pg (28.0-33.3); Mean Corpuscular Volume 94.7 fL (83.0-100.0); Mean Platelet Volume 9.5 fL (9.4-12.4); Platelet Count 157 K/mcL (140-400)
[2016-12-07 01:31] LABS: Calcium 9.2 mg/dL (8.6-10.8)
[2016-12-07] MEDS ORDERED: Vancomycin 500 MG in D5% in Water (Mini-Bag+) 100 ML IVPB ONE (04:00)
[2016-12-07] MEDS: Ipratropium/Albuterol Neb 3 ML IH SCH ×4 (04:59→19:57)
[2016-12-07] MEDS: Piperacillin/Tazobactam 3.375 GM in D5% in Water (Mini-Bag+) 100 ML IVPB SCH ×2 (05:07→17:07)
[2016-12-07] MEDS: *HR* Heparin 5,000 UNIT/ML VIAL SQ SCH ×2 (05:07→16:54)
[2016-12-07] MEDS ORDERED: 0.9 % Sodium Chloride 250 ML IVC PRN (07:07)
--- NOTE | 2016-12-07 08:08 | Internal Med Progress Note ---
Date of Encounter: 12/07/16 Time of Encounter: 09:41 - Assessment and plan (1) End stage kidney disease Current Visit: Yes Status: Chronic Assessment and plan: With fluid overload and edema by CXR Renal is following For HD this morning (2) Acute respiratory failure Current Visit: Yes Status: Acute Assessment and plan: Tachypnea, hypoxia, CXR with pneumonia and Pulm edema IV lasix 80mg stat 12/06 Continue Lasix 40mg bid Continue BIPAP High risk for decompensation and mechanical ventilation Repeat CXR a.m Monitor closely Qualifiers: Respiratory failure complication: hypoxia Qualified Code(s): J96.01 - Acute respiratory failure with hypoxia (3) Diabetes Current Visit: Yes Status: Chronic Assessment and plan: FS acceptable for now Continue sliding scale insulin FS ACHS ADA diet 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 mellitus complication status: with kidney complications Diabetes mellitus complication detail: with chronic kidney disease Diabetes mellitus fpc insulin use: with adjunct faculty for medical terminology use Chronic kidney disease stage: on chronic dialysis Qualified Code(s): E11.22 - Type 2 diabetes mellitus with diabetic chronic kidney disease; N18.6 - End stage renal disease; N18.6 - End stage renal disease; N18.6 - End stage renal disease; N18.6 - End stage renal disease; Z79.4 - alf (current) use of insulin; 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; Z79.4 - alf (current ) use of insulin; Z79.4 - alf (current) use of insulin; Z99.2 - Dependence on renal dialysis; Z99.2 - Dependence on renal dialysis; Z99.2 - Dependence on renal dialysis; Z99.2 - Dependence on renal dialysis (4) Pneumonia Current Visit: Yes Status: Acute Assessment and plan: Suspected Continue Zosyn, sputum for culture Follow blood culture Repeat CXR am to assess edema Qualifiers: Pneumonia type: due to unspecified organism Laterality: right Lung location: lower lobe of lung Qualified Code(s): J18.1 - Lobar pneumonia, unspecified organism (5) HTN (hypertension) Current Visit: Yes Status: Chronic Assessment and plan: Continue current meds Qualifiers: Hypertension type: essential hypertension Qualified Code(s): I10 - Essential (primary) hypertension (6) Anemia in chronic kidney disease Current Visit: Yes Status: Chronic Assessment and plan: HB stable, continue EPO Qualifiers: Chronic kidney disease stage: on chronic dialysis Qualified Code(s): N18.6 - End stage renal disease; D63.1 - Anemia in chronic kidney disease; Z99.2 - Dependence on renal dialysis (7) Aortic stenosis Current Visit: Yes Status: Chronic Assessment and plan: per ECHO 10/2016. Moderate . No indication for intervention at this time Qualifiers: Cardiac valve disease etiology: etiology unspecified Qualified Code(s): I35.0 - Nonrheumatic aortic (valve) stenosis (8) Moderate to severe pulmonary hypertension Current Visit: Yes Status: Chronic Assessment and plan: Chronic, repeat ECHO (9) Hyperlipidemia Current Visit: Yes Status: Chronic Assessment and plan: Continue home meds Qualifiers: Hyperlipidemia type: unspecified Qualified Code(s): E78.5 - Hyperlipidemia , unspecified (10) COPD exacerbation Current Visit: Yes Status: Acute Assessment and plan: Duonebs, solumedrol, continue, continue Zosyn (11) CHF (congestive heart failure) Current Visit: Yes Status: Chronic Assessment and plan: Strict I/O lasix 80mg daily Fluid restriction BiPAP for pulm edema Check limited ECHO for EF due to pulmomnary edema, no chest pain, troponin on admission was elevated Continue home meds Qualifiers: Congestive heart failure type: diastolic Congestive heart failure chronicity: acute on chronic Qualified Code(s): I50.33 - Acute on chronic diastolic (congestive) heart failure (12) Elevated troponin Current Visit: Yes Status: Acute Assessment and plan: Adynamic, no CP, patient with known CHFpEF admitted with exacerbation with BNP > 3000 and hypoxia Elevated troponin possibly due to demand Repeat ECHO today - Subjective Interval history: Seen and evaluated at bedside Admitted and being managed for Pulmonary edema , pneumonia, CHFE Seen sitting in bed, reports he feels some improvement in his breathing, he is able to complete his sentences ABG shows hypoxia. CXR repeated this a.m shows worsening pulmonary edema Renal is on board for HD today He otherwise reports some clinical improvement Awaiting PTOT eval - Constitutional Vitals: Temp Pulse Resp BP Pulse Ox 98.2 F 76 23 159/92 96 12/07/16 04:50 12/07/16 04:50 12/07/16 05:00 12/07/16 04:50 12/07/16 05:00 General appearance: Present: A&O X 3, pleasant, no acute distress, answers questions appropriately - Head Head exam: Present: atraumatic, normocephalic - Eye Eye exam: Present: PERRL, conjuntiva pink, sclera anicteric Pupils: Present: PERRL - Neck Neck exam general surgery: Present: supple, trachea midline. Absent: lymphadenopathy - Respiratory Respiratory exam: Present: CTAB. Absent: accessory muscle use, rales, rhonchi, wheezes - Cardiovascular Cardiovascular exam: Present: RRR, +S1, +S2. Absent: diastolic murmur, gallop, rubs, systolic murmur - GI/Abdominal GI/Abdominal exam: Present: normal bowel sounds, soft, no peritoneal signs. Absent: distended, tenderness - Extremities Exam Extremities exam: Present: warm, radial pulses palpable and symmetrical. Absent : calf tenderness, cyanotic, pedal edema - Neurological Exam Neurological exam: Present: alert, CN II-XII intact, oriented X3, no focal deficits. Absent: pronater drift, facial droop, speech deficit - Skin Skin exam: Present: dry, intact Internal Medicine: Result - Labs CBC & Chem 7: 12/07/16 00:26 12/07/16 00:26 Labs: Short CBC 12/07/16 Range/Units 00:26 WBC 6.5 (4.3-11.1) K/mcL Hgb 10.1 L (12.9-16.9) g/dL Hct 30.3 L (37.5-50.1) % Plt Count 157 (140-400) K/mcL BMP 12/07/16 00:26 Sodium 140 Potassium 4.0 Chloride 98 Carbon Dioxide 28 BUN 47 H D Creatinine 5.82 H Glucose 271 H Calcium 9.2 Cardiac Enzymes 12/06/16 Range/Units 10:09 Troponin I 0.05 H* (0-0.03) ng/mL - ABG Interpretation ABG results: ABG ABG pH 7.43 pH Units (7.32-7.45) 12/07/16 00:21 ABG pCO2 46 mmHg (35-45) H 12/07/16 00:21 ABG pO2 59 mmHg (85-104) L 12/07/16 00:21 ABG O2 Saturation 91 % (95-98) L 12/07/16 00:21 - Impressions Impressions Chest X-Ray 12/07/16 04:00 IMPRESSION: Worsening pulmonary edema. D/ / Rao Toscano MD / Rao Toscano MD Interpreting Provider: Rao Toscano MD Consult Discharge Plan - Plan Referrals: Kenny Mckenna DO [Primary Care Provider] - 12/15/16 1:00 pm (Please follow up as schedule...)
[2016-12-07] MEDS: Furosemide 40 MG/4 ML VIAL IVP SCH ×2 (08:14→16:54)
[2016-12-07] MEDS: Insulin LISPRO 300 UNITS/3 ML VIAL SQ SCH ×4 (08:19→20:59)
[2016-12-07] MEDS: methylPREDNISolone 125 MG/2 ML VIAL IVP SCH ×3 (08:19→23:06)
[2016-12-07] MEDS: Renal Vitamin 1 MG CAPSULE PO SCH (08:19)
[2016-12-07] MEDS: Aspirin Enteric Coated 81 MG Tablet PO SCH (08:19)
[2016-12-07] MEDS ORDERED: Furosemide 40 MG/4 ML VIAL IVP SCH (09:00)
[2016-12-07] MEDS ORDERED: Aminoglycoside Consult 1 EACH MC ONE (09:27)
--- NOTE | 2016-12-07 11:22 | Nephrology Progress Note ---
Date of Encounter: 12/07/16 Time of Encounter: 11:20 - Assessment and Plan (1) Acute respiratory failure Current Visit: Yes Status: Acute Secondary to CHF and possible pneumonia. UF with HD. Monitor for the need for additional fluid removal. Qualifiers: Respiratory failure complication: hypoxia Qualified Code(s): J96.01 - Acute respiratory failure with hypoxia (2) ESRD (end stage renal disease) Current Visit: Yes Status: Acute HD MWF. Renal vitamins. Renal dose medications. Renal diet. Additional dialysis as needed. (3) Pneumonia Current Visit: Yes Status: Acute Patient on empiric antibiotics. Antibiotics can probably be descalated as he has no fever or leukocytosis. Qualifiers: Pneumonia type: due to unspecified organism Laterality: right Lung location: lower lobe of lung Qualified Code(s): J18.1 - Lobar pneumonia, unspecified organism (4) Acute systolic heart failure Current Visit: Yes Status: Acute Will remove fluid with HD. Patient may need UF on . (5) Anemia in chronic kidney disease Current Visit: Yes Status: Chronic Hemoglobin is stable. No active bleeding identified. Qualifiers: Chronic kidney disease stage: on chronic dialysis Qualified Code(s): N18.6 - End stage renal disease; D63.1 - Anemia in chronic kidney disease; Z99.2 - Dependence on renal dialysis Subjective Principal diagnosis: ESRD Interval history: Patient seen while on dialysis. He has no new complaint. He reports that his breathing is improving. Objective - Vital Signs Vital signs: Vital Signs Temp Pulse Resp BP Pulse Ox 12/07/16 10:25 138/69 12/07/16 09:55 139/71 12/07/16 09:25 97.7 F 15 131/69 12/07/16 08:13 97.6 F 69 17 138/69 99 12/07/16 05:00 23 96 12/07/16 04:50 98.2 F 76 27 159/92 99 12/06/16 23:32 98.4 F 68 28 130/65 97 12/06/16 22:08 20 93 12/06/16 19:09 98.8 F 74 27 150/70 99 12/06/16 16:04 98.1 F 77 24 132/72 93 12/06/16 15:23 30 97 12/06/16 11:37 30 97 Intake and Output 12/06/16 12/07/16 12/07/16 23:59 07:59 15:59 Intake Total 100 / 100 100 / 100 720 / 720 Output Total 100 / 100 Balance 0 / 0 100 / 100 720 / 720 Intake: IV Fluids 100 / 100 100 / 100 Zosyn 3.375 GM In Dextrose 5% ( 100 / 100 Minibag+) 100 ML 100 ML @ 25 mls/hr IVPB Q12HR [facility] Rx#: [id number] Vancocin 500 MG In Dextrose 5% 100 / 100 (Minibag+) 100 ML 100 ML @ 100 mls/hr IVPB ONCE ONE Rx#: [id number] Oral 120 / 120 Intake, Rinseback and Flushes 600 / 600 Output: Urine 100 / 100 Other: Meal Breakfast Percent of Meal Consumed 100% Stool Size Small Stool Consistency loose soft Stool Color Brown # Bowel Movements 1 1 Weight 92.4 kg Blood Glucose* 280 310 Hemodialysis Net Fluid Removed 1043 (mL) Patient Weight 12/07/16 23:59 Weight 92.4 kg - General Appearance General appearance: Present: well-developed, well-nourished, obese EENT: Present: ATNC Neck: Present: supple Respiratory: Present: course breath sounds Cardiology: Present: edema, regular rate Dialysis Vascular Access: Arteriovenous Fistula Integumentary: Present: warm and dry Neurologic: Present: alert and oriented x3 Additional Comments: Watching TV at the time of evaluation. Psychiatric: Present: mood/affect appropriate - Lab 12/07/16 00:26 12/07/16 00:26 Most recent lab results ABG pH 7.43 pH Units (7.32-7.45) 12/07/16 00:21 ABG pCO2 46 mmHg (35-45) H 12/07/16 00:21 ABG pO2 59 mmHg (85-104) L 12/07/16 00:21 ABG HCO3 31 mEq/L (21-27) H 12/07/16 00:21 ABG O2 Saturation 91 % (95-98) L 12/07/16 00:21 Calcium 9.2 mg/dL (8.6-10.8) 12/07/16 00:26 Phosphorus 4.6 mg/dL (2.3-4.7) 12/06/16 04:11 Magnesium 1.9 mg/dL (1.6-2.6) 12/06/16 04:11 Consult Discharge Plan - Plan Referrals: Kenny Mckenna DO [Primary Care Provider] - 12/15/16 1:00 pm (Please follow up as schedule...)
[2016-12-07] MEDS ORDERED: 0.9 % Sodium Chloride 2,000 ML ONE (12:41)
[2016-12-07] MEDS: hydrALAZINE 25 MG TABLET PO SCH ×3 (13:28→20:58)
[2016-12-07] MEDS: amLODIPine 5 MG TABLET PO SCH ×2 (13:28→20:58)
[2016-12-07] MEDS ORDERED: Lisinopril 20 MG TABLET PO SCH (20:00)
[2016-12-08 03:52] LABS: Hematocrit 29.3 % (37.5-50.1); Hemoglobin 9.8 g/dL (12.9-16.9); Mean Corpuscular HGB Conc 33.4 g/dL (31.6-35.5); Mean Corpuscular Hemoglobin 31.2 pg (28.0-33.3); Mean Corpuscular Volume 93.3 fL (83.0-100.0); Mean Platelet Volume 9.9 fL (9.4-12.4); Platelet Count 156 K/mcL (140-400); Red Blood Count 3.14 M/mcL (4.19-5.50); Red Cell Distribution Width 13.1 % (11.5-14.5)
[2016-12-08] MEDS: Ipratropium/Albuterol Neb 3 ML IH SCH ×4 (03:53→22:47)
[2016-12-08 04:07] LABS: Potassium 4.7 mEq/L (3.5-4.5)
[2016-12-08] MEDS: Piperacillin/Tazobactam 3.375 GM in D5% in Water (Mini-Bag+) 100 ML IVPB SCH ×2 (05:29→17:48)
[2016-12-08] MEDS: *HR* Heparin 5,000 UNIT/ML VIAL SQ SCH ×2 (05:30→16:35)
--- NOTE | 2016-12-08 08:11 | Nephrology Progress Note ---
Date of Encounter: 12/08/16 Time of Encounter: 08:09 - Assessment and Plan (1) ESRD (end stage renal disease) on dialysis Current Visit: Yes Status: Chronic Plan for HD tomorrow Continue renal diet and I/Os Will continue to monitor for the need for additional fluid removal Avoid nephrotoxins is possible (2) Acute respiratory failure Current Visit: Yes Status: Acute Improving per primary team Qualifiers: Respiratory failure complication: hypoxia Qualified Code(s): J96.01 - Acute respiratory failure with hypoxia (3) Pneumonia Current Visit: Yes Status: Acute per primary team Qualifiers: Pneumonia type: due to unspecified organism Laterality: right Lung location: lower lobe of lung Qualified Code(s): J18.1 - Lobar pneumonia, unspecified organism (4) Diabetes Current Visit: Yes Status: Chronic per primary team 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 mellitus complication status: with kidney complications Diabetes mellitus complication detail: with chronic kidney disease Diabetes mellitus jail insulin use: with jail use Chronic kidney disease stage: on chronic dialysis Qualified Code(s): E11.22 - Type 2 diabetes mellitus with diabetic chronic kidney disease; N18.6 - End stage renal disease; Z99.2 - Dependence on renal dialysis; Z99.2 - Dependence on renal dialysis; Z99.2 - Dependence on renal dialysis; N18.6 - End stage renal disease; N18.6 - End stage renal disease; N18.6 - End stage renal disease ; Z79.4 - custodial (current) use of insulin; Z79.4 - custodial (current) use of insulin; Z79.4 - custodial (current) use of insulin; Z79.4 - custodial ( current) use of insulin; Z99.2 - Dependence on renal dialysis Subjective Principal diagnosis: ESRD Interval history: Patient seen and examined. Sitting up on side of bed eating breakfast. States he is feeling better. Objective - Vital Signs Vital signs: Vital Signs Temp Pulse Resp BP Pulse Ox 12/08/16 06:55 97.2 F L 66 18 153/74 98 12/08/16 03:54 20 98 12/08/16 03:04 97.4 F L 64 18 139/69 96 12/07/16 23:39 98.7 F 66 18 146/81 99 12/07/16 23:35 26 100 12/07/16 19:57 30 99 12/07/16 19:51 98.0 F 72 16 138/69 97 12/07/16 15:48 97.3 F L 70 20 135/77 99 12/07/16 15:38 27 99 12/07/16 13:05 98.1 F 16 143/78 12/07/16 12:55 134/75 12/07/16 12:25 129/71 12/07/16 11:55 132/69 12/07/16 11:25 131/70 12/07/16 10:55 122/60 12/07/16 10:25 138/69 12/07/16 09:55 139/71 12/07/16 09:25 97.7 F 15 131/69 12/07/16 08:13 97.6 F 69 17 138/69 99 Intake and Output 12/07/16 12/08/16 12/08/16 23:59 07:59 15:59 Intake Total 100 / 100 Balance 100 / 100 Intake: IV Fluids 100 / 100 Zosyn 3.375 GM In Dextrose 5% ( 100 / 100 Minibag+) 100 ML 100 ML @ 25 mls/hr IVPB Q12HR [facility] Rx#: [id number] Other: Stool Size Smear # Urine Diapers 1 0 Weight 91.4 kg Blood Glucose* 379 332 - General Appearance General appearance: Present: chronically ill, frail EENT: Present: ATNC, mucous membranes moist, hearing intact, vision intact Neck: Present: supple Respiratory: Present: clear Cardiology: Present: no edema, normal S1, normal S2 Dialysis Vascular Access: Arteriovenous Fistula Gastrointestinal: Present: no tenderness, no guarding Integumentary: Present: warm and dry Neurologic: Present: alert and oriented x3 Psychiatric: Present: mood/affect appropriate, cooperative - Lab 12/08/16 02:54 12/08/16 02:54 Most recent lab results ABG pH 7.43 pH Units (7.32-7.45) 12/07/16 00:21 ABG pCO2 46 mmHg (35-45) H 12/07/16 00:21 ABG pO2 59 mmHg (85-104) L 12/07/16 00:21 ABG HCO3 31 mEq/L (21-27) H 12/07/16 00:21 ABG O2 Saturation 91 % (95-98) L 12/07/16 00:21 Calcium 9.0 mg/dL (8.6-10.8) 12/08/16 02:54 Phosphorus 4.6 mg/dL (2.3-4.7) 12/06/16 04:11 Magnesium 1.9 mg/dL (1.6-2.6) 12/06/16 04:11 Consult Discharge Plan - Plan Referrals: Kenny Mckenna DO [Primary Care Provider] - 12/15/16 1:00 pm (Please follow up as schedule...)
[2016-12-08] MEDS: methylPREDNISolone 125 MG/2 ML VIAL IVP SCH (09:58)
[2016-12-08] MEDS: Furosemide 40 MG/4 ML VIAL IVP SCH ×2 (10:00→16:36)
[2016-12-08] MEDS: hydrALAZINE 25 MG TABLET PO SCH ×3 (10:02→20:55)
[2016-12-08] MEDS: Aspirin Enteric Coated 81 MG Tablet PO SCH (10:02)
[2016-12-08] MEDS: amLODIPine 5 MG TABLET PO SCH ×2 (10:02→20:55)
[2016-12-08] MEDS: Renal Vitamin 1 MG CAPSULE PO SCH (10:02)
[2016-12-08] MEDS: Insulin LISPRO 300 UNITS/3 ML VIAL SQ SCH ×5 (10:03→20:59)
--- NOTE | 2016-12-08 11:03 | Internal Med Progress Note ---
Date of Encounter: 12/08/16 Time of Encounter: 10:20 - Assessment and plan (1) End stage kidney disease Current Visit: Yes Status: Chronic Assessment and plan: With fluid overload and edema by CXR Renal is following For HD as scheduled (2) Acute respiratory failure Current Visit: Yes Status: Acute Assessment and plan: Tachypnea, hypoxia, CXR with pneumonia and Pulm edema IV lasix 80mg stat 12/06 Continue Lasix 40mg bid Continue BIPAP High risk for decompensation and mechanical ventilation CXr shows improvement now Continue HD and lasix Continue Zosyn Qualifiers: Respiratory failure complication: hypoxia Qualified Code(s): J96.01 - Acute respiratory failure with hypoxia (3) Diabetes Current Visit: Yes Status: Chronic Assessment and plan: FS acceptable for now Continue sliding scale insulin FS ACHS ADA diet 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 mellitus complication status: with kidney complications Diabetes mellitus complication detail: with chronic kidney disease Diabetes mellitus prison insulin use: with senior center manager use Chronic kidney disease stage: on chronic dialysis Qualified Code(s): E11.22 - Type 2 diabetes mellitus with diabetic chronic kidney disease; N18.6 - End stage renal disease; N18.6 - End stage renal disease; N18.6 - End stage renal disease; N18.6 - End stage renal disease; 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; 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; Z79.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 faculty member (current ) use of insulin; Z79.4 - snf (current) use of insulin; Z99.2 - Dependence on renal dialysis; Z99.2 - Dependence on renal dialysis; Z99.2 - Dependence on renal dialysis; Z99.2 - Dependence on renal dialysis (4) Pneumonia Current Visit: Yes Status: Acute Assessment and plan: Suspected Continue Zosyn, Bld culture no growth Qualifiers: Pneumonia type: due to unspecified organism Laterality: right Lung location: lower lobe of lung Qualified Code(s): J18.1 - Lobar pneumonia, unspecified organism (5) HTN (hypertension) Current Visit: Yes Status: Chronic Assessment and plan: Continue current meds Qualifiers: Hypertension type: essential hypertension Qualified Code(s): I10 - Essential (primary) hypertension (6) Anemia in chronic kidney disease Current Visit: Yes Status: Chronic Assessment and plan: HB stable, continue EPO Qualifiers: Chronic kidney disease stage: on chronic dialysis Qualified Code(s): N18.6 - End stage renal disease; D63.1 - Anemia in chronic kidney disease; Z99.2 - Dependence on renal dialysis (7) Aortic stenosis Current Visit: Yes Status: Chronic Assessment and plan: per ECHO 10/2016. Moderate . No indication for intervention at this time Qualifiers: Cardiac valve disease etiology: etiology unspecified Qualified Code(s): I35.0 - Nonrheumatic aortic (valve) stenosis (8) Moderate to severe pulmonary hypertension Current Visit: Yes Status: Chronic Assessment and plan: Chronic, ECHO done 12/07 showed moderate pericardial effusion without tamponade, EF is preserved (9) Hyperlipidemia Current Visit: Yes Status: Chronic Assessment and plan: Continue home meds Qualifiers: Hyperlipidemia type: unspecified Qualified Code(s): E78.5 - Hyperlipidemia , unspecified (10) COPD exacerbation Current Visit: Yes Status: Acute Assessment and plan: Quita, change solumedrol to prednisone (11) CHF (congestive heart failure) Current Visit: Yes Status: Chronic Assessment and plan: Strict I/O lasix 80mg daily Fluid restriction BiPAP for pulm edema ECHO shows preserved EF, pericardial effusion without tamponade, no WMA Continue to monitor Qualifiers: Congestive heart failure type: diastolic Congestive heart failure chronicity: acute on chronic Qualified Code(s): I50.33 - Acute on chronic diastolic (congestive) heart failure (12) Elevated troponin Current Visit: Yes Status: Acute Assessment and plan: Adynamic, no CP, patient with known CHFpEF admitted with exacerbation with BNP > 3000 and hypoxia Elevated troponin possibly due to demand ECHO with preserved EF and no WMA - Subjective Interval history: Seen and evaluated at bedside Admitted and being managed for Pulmonary edema , pneumonia, CHFE, acute on chronic hypoxic respiratry failure He reports improvement this a.m No new complains - Constitutional Vitals: Temp Pulse Resp BP Pulse Ox 97.4 F L 76 17 156/83 100 12/08/16 10:58 12/08/16 10:58 12/08/16 10:58 12/08/16 10:58 12/08/16 10:58 General appearance: Present: A&O X 3, pleasant, no acute distress, answers questions appropriately - Head Head exam: Present: atraumatic, normocephalic - Eye Eye exam: Present: PERRL, conjuntiva pink, sclera anicteric Pupils: Present: PERRL - Neck Neck exam general surgery: Present: supple, trachea midline. Absent: lymphadenopathy - Respiratory Respiratory exam: Present: rales, rhonchi - Cardiovascular Cardiovascular exam: Present: RRR, +S1, +S2. Absent: diastolic murmur, gallop, rubs, systolic murmur - GI/Abdominal GI/Abdominal exam: Present: normal bowel sounds, soft, no peritoneal signs. Absent: distended, tenderness - Extremities Exam Extremities exam: Present: warm, radial pulses palpable and symmetrical. Absent : calf tenderness, cyanotic, pedal edema - Neurological Exam Neurological exam: Present: alert, CN II-XII intact, oriented X3, no focal deficits. Absent: pronater drift, facial droop, speech deficit - Skin Skin exam: Present: dry, intact Internal Medicine: Result - Labs CBC & Chem 7: 12/08/16 02:54 12/08/16 02:54 Labs: Short CBC 12/08/16 Range/Units 02:54 WBC 8.2 (4.3-11.1) K/mcL Hgb 9.8 L (12.9-16.9) g/dL Hct 29.3 L (37.5-50.1) % Plt Count 156 (140-400) K/mcL BMP 12/08/16 02:54 Sodium 139 Potassium 4.7 H Chloride 97 L Carbon Dioxide 28 BUN 45 H Creatinine 4.64 H Glucose 312 H Calcium 9.0 - ABG Interpretation ABG results: ABG ABG pH 7.43 pH Units (7.32-7.45) 12/07/16 00:21 ABG pCO2 46 mmHg (35-45) H 12/07/16 00:21 ABG pO2 59 mmHg (85-104) L 12/07/16 00:21 ABG O2 Saturation 91 % (95-98) L 12/07/16 00:21 - Impressions Impressions Echocardiogram Limited Views 12/07/16 08:05 Impressions: LVEF 50-55%. RV size is dilated. Function appears normal on this limited study. There is a small to moderate circumferential pericardial effusion present without tamponde physiology. Left Ventricular Wall Motion: Rest Echo Findings All wall segments showed normal motion. Findings: Study Quality * Technically adequate exam. ECG Findings * Normal sinus rhythm. Left Ventricle * Normal LV size. * LVEF 50-55%. Pericardium * There is a small to moderate circumferential pericardial effusion present. * There is no echocardiographic evidence of tamponade. IVC * The IVC is dilated. * > 50% respiratory change Tricuspid Valve * Estimated RA pressure is 8 mmHg. Right Ventricle * RV size is dilated. Function appears normal on this limited study. Chest X-Ray 12/08/16 04:00 IMPRESSION: Stable cardiomegaly and central pulmonary edema. D/ / Pasquale Holden MD / Pasquale Holden MD Interpreting Provider: Pasquale Holden MD Consult Discharge Plan - Plan Referrals: Kenny Mckenna DO [Primary Care Provider] - 12/15/16 1:00 pm (Please follow up as schedule...)
[2016-12-08] MEDS: Insulin DETEMIR 100 UNIT/ML X5UNITS SQ SCH (16:34)
[2016-12-08] MEDS: predniSONE 20 MG TABLET PO SCH (16:50)
[2016-12-09 03:19] LABS: Eosinophils % 0.1 %; Hemoglobin 10.6 g/dL (12.9-16.9); Immature Granulocytes % 0.7 % (0-4); Lymphocytes # 0.3 K/mcL (0.6-4.6); Lymphocytes % 3.3 %; Mean Corpuscular HGB Conc 33.1 g/dL (31.6-35.5); Mean Corpuscular Hemoglobin 31.2 pg (28.0-33.3); Mean Corpuscular Volume 94.1 fL (83.0-100.0); Mean Platelet Volume 9.4 fL (9.4-12.4); Monocytes # 0.5 K/mcL (0.0-1.3); Monocytes % 4.6 %; Neutrophils # 9.1 K/mcL (1.6-8.9); Platelet Count 183 K/mcL (140-400); Red Cell Distribution Width 12.8 % (11.5-14.5); Segmented Neutrophils % 91.3 %
[2016-12-09 03:37] LABS: Calcium 8.7 mg/dL (8.6-10.8); Potassium 5.4 mEq/L (3.5-4.5)
[2016-12-09] MEDS: Ipratropium/Albuterol Neb 3 ML IH SCH ×3 (04:03→16:08)
[2016-12-09] MEDS: *HR* Heparin 5,000 UNIT/ML VIAL SQ SCH (05:56)
[2016-12-09] MEDS: Piperacillin/Tazobactam 3.375 GM in D5% in Water (Mini-Bag+) 100 ML IVPB SCH (05:56)
[2016-12-09] MEDS ORDERED: 0.9 % Sodium Chloride 250 ML IVC PRN (08:37)
[2016-12-09] MEDS: Insulin LISPRO 300 UNITS/3 ML VIAL SQ SCH ×4 (08:42→14:09)
[2016-12-09] MEDS: Furosemide 40 MG/4 ML VIAL IVP SCH (08:42)
[2016-12-09] MEDS: predniSONE 20 MG TABLET PO SCH (08:43)
[2016-12-09] MEDS: Renal Vitamin 1 MG CAPSULE PO SCH (08:43)
[2016-12-09] MEDS: Aspirin Enteric Coated 81 MG Tablet PO SCH (08:44)
[2016-12-09] MEDS ORDERED: 0.9 % Sodium Chloride 1,000 ML PRIME SCH (08:45)
[2016-12-09] MEDS: Insulin DETEMIR 100 UNIT/ML X5UNITS SQ SCH (10:07)
--- NOTE | 2016-12-09 11:46 | Nephrology Progress Note ---
Date of Encounter: 12/09/16 Time of Encounter: 11:43 - Assessment and Plan (1) Acute respiratory failure Current Visit: Yes Status: Acute Secondary to CHF and possible pneumonia. UF with HD. Monitor for the need for additional fluid removal. Seems to be close to euvolemia. Dyspnea greatly improved. Qualifiers: Respiratory failure complication: hypoxia Qualified Code(s): J96.01 - Acute respiratory failure with hypoxia (2) ESRD (end stage renal disease) Current Visit: Yes Status: Acute HD MWF. Renal vitamins. Renal dose medications. Renal diet. Additional dialysis as needed. (3) Pneumonia Current Visit: Yes Status: Acute Patient on empiric antibiotics. Antibiotics can probably be descalated as he has no fever or leukocytosis. Per primary team. Qualifiers: Pneumonia type: due to unspecified organism Laterality: right Lung location: lower lobe of lung Qualified Code(s): J18.1 - Lobar pneumonia, unspecified organism (4) Acute systolic heart failure Current Visit: Yes Status: Acute Will remove fluid with HD. Seems to be close to euvolemia. (5) Anemia in chronic kidney disease Current Visit: Yes Status: Chronic Hemoglobin is stable. No active bleeding identified. Qualifiers: Chronic kidney disease stage: on chronic dialysis Qualified Code(s): N18.6 - End stage renal disease; D63.1 - Anemia in chronic kidney disease; Z99.2 - Dependence on renal dialysis Subjective Principal diagnosis: ESRD Interval history: Patient seen while on dialysis. He has no new complaint. He reports that his breathing is improving. Objective - Vital Signs Vital signs: Vital Signs Temp Pulse Resp BP Pulse Ox 12/09/16 10:45 118/77 12/09/16 10:30 126/57 12/09/16 10:15 126/69 12/09/16 10:00 132/71 12/09/16 09:45 132/71 12/09/16 09:30 118/61 12/09/16 09:15 97.3 F L 18 125/66 12/09/16 07:59 97.7 F 66 23 169/84 97 12/09/16 04:48 97.5 F L 65 24 148/51 99 12/09/16 04:03 19 98 12/09/16 00:44 97.5 F L 59 19 131/61 99 12/08/16 22:47 13 100 12/08/16 21:00 100 12/08/16 20:26 97.5 F L 65 18 137/69 100 12/08/16 20:20 18 100 12/08/16 15:37 97.9 F 66 17 144/61 99 Intake and Output 12/08/16 12/09/16 12/09/16 23:59 07:59 15:59 Intake Total 340 / 340 1020 / 1020 Balance 340 / 340 1020 / 1020 Intake: IV Fluids 100 / 100 Zosyn 3.375 GM In Dextrose 5% ( 100 / 100 Minibag+) 100 ML 100 ML @ 25 mls/hr IVPB Q12HR [facility] Rx#: [id number] Oral 240 / 240 420 / 420 Intake, Rinseback and Flushes 600 / 600 Other: Meal Dinner Breakfast Percent of Meal Consumed 100% 100% Stool Size Moderate Moderate Stool Consistency soft liquid Stool Color Brown Brown Yellow # Voids 1 # Bowel Movements 1 1 Weight 95.6 kg 95.6 kg Blood Glucose* 184 231 Hemodialysis Net Fluid Removed 1543 (mL) Patient Weight 12/09/16 23:59 Weight 95.6 kg - General Appearance General appearance: Present: well-developed, well-nourished EENT: Present: ATNC Neck: Present: supple Cardiology: Present: regular rate Neurologic: Present: alert and oriented x3 Psychiatric: Present: mood/affect appropriate - Lab 12/09/16 02:56 12/09/16 02:56 Most recent lab results ABG pH 7.43 pH Units (7.32-7.45) 12/07/16 00:21 ABG pCO2 46 mmHg (35-45) H 12/07/16 00:21 ABG pO2 59 mmHg (85-104) L 12/07/16 00:21 ABG HCO3 31 mEq/L (21-27) H 12/07/16 00:21 ABG O2 Saturation 91 % (95-98) L 12/07/16 00:21 Calcium 8.7 mg/dL (8.6-10.8) 12/09/16 02:56 Phosphorus 4.6 mg/dL (2.3-4.7) 12/06/16 04:11 Magnesium 1.9 mg/dL (1.6-2.6) 12/06/16 04:11 Consult Discharge Plan - Plan Referrals: Kenny Mckenna DO [Primary Care Provider] - 12/15/16 1:00 pm (Please follow up as schedule...)
[2016-12-09] MEDS ORDERED: Insulin LISPRO 300 UNITS/3 ML VIAL SQ SCH (12:30)
--- NOTE | 2016-12-09 13:08 | Discharge Summary ---
Date of Encounter: 12/09/16 Time of Encounter: 13:08 - Discharge Diagnosis (1) Physical deconditioning Priority: Primary Status: Acute Comments: Patient was seen and evaluated by PTOT and recommendation is to be discharged to in-patient for SNF, patient vehemently declined to , RN, SW States he will prefer to go home on HOme health Understands the risks of falls with fracture , head injury, and worsening morbidity (2) End stage kidney disease Priority: Secondary Status: Chronic Comments: Presented with fluid overload and acute respiratory failure Nephrology followed throughout admission Received HD Stable for discharge to follow up with PCP (3) Acute respiratory failure Priority: Primary Status: Acute Comments: Presented with Tachypnea, hypoxia, CXR with pneumonia and Pulm edema He was placd on BIAP , IV diuretics and receved regular HD He is negative -4.8L He has made significant improvement His Severe Pulm HTN and COPDE may have contributed to his respiratory failure Repeat CXR showed improvement in the pulmonary edema Sputum and blood culture yielded no growth He received 4 days of Zosyn IV and one dose of Vancomycin He has improved significantly but continues to require 2L of O2 He is discharged on continuous home O2 Lasix was added to his home regimen Qualifiers: Respiratory failure complication: hypoxia Qualified Code(s): J96.01 - Acute respiratory failure with hypoxia (4) Diabetes Priority: Secondary Status: Chronic Comments: Resume home insulin 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 mellitus complication status: with kidney complications Diabetes mellitus complication detail: with chronic kidney disease Diabetes mellitus nursing home insulin use: with nursing home use Chronic kidney disease stage: on chronic dialysis Qualified Code(s): E11.22 - Type 2 diabetes mellitus with diabetic chronic kidney disease; N18.6 - End stage renal disease; N18.6 - End stage renal disease; N18.6 - End stage renal disease; N18.6 - End stage renal disease; 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; Z79.4 - prison (current) use of insulin; Z79.4 - intermodal owner operator truck driver (current ) use of insulin; 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; Z99.2 - Dependence on renal dialysis; Z99.2 - Dependence on renal dialysis; Z99.2 - Dependence on renal dialysis; Z99.2 - Dependence on renal dialysis (5) Pneumonia Priority: Primary Status: Suspected Comments: Suspected Repeat CXRs show its more of pulm edema than pneumonia Patient received Zosyn IV for 4 days + during admission one dose of po levaquin Discharged on 2 more doses of Levaquin q48H Sputum and blood culture negative Safe to discharge Qualifiers: Pneumonia type: due to unspecified organism Laterality: right Lung location: lower lobe of lung Qualified Code(s): J18.1 - Lobar pneumonia, unspecified organism (6) HTN (hypertension) Priority: Secondary Status: Chronic Comments: Controlled on home medications, continue same Qualifiers: Hypertension type: essential hypertension Qualified Code(s): I10 - Essential (primary) hypertension (7) Anemia in chronic kidney disease Priority: Secondary Status: Chronic Qualifiers: Chronic kidney disease stage: on chronic dialysis Qualified Code(s): N18.6 - End stage renal disease; D63.1 - Anemia in chronic kidney disease; Z99.2 - Dependence on renal dialysis (8) Aortic stenosis Priority: Secondary Status: Chronic Comments: Chronic, as reported in ECHO. Follow up with cardiology NO indication for intervention for now Qualifiers: Cardiac valve disease etiology: etiology unspecified Qualified Code(s): I35.0 - Nonrheumatic aortic (valve) stenosis (9) Moderate to severe pulmonary hypertension Priority: Secondary Status: Chronic Comments: Chronic, stable (10) Hyperlipidemia Priority: Secondary Status: Chronic Qualifiers: Hyperlipidemia type: unspecified Qualified Code(s): E78.5 - Hyperlipidemia , unspecified (11) COPD exacerbation Priority: Primary Status: Acute Comments: As in resp failure complete 5 days of prednisone at home (12) CHF (congestive heart failure) Priority: Secondary Status: Chronic Qualifiers: Congestive heart failure type: diastolic Congestive heart failure chronicity: acute on chronic Qualified Code(s): I50.33 - Acute on chronic diastolic (congestive) heart failure (13) Elevated troponin Priority: Secondary Status: Acute - Discharge Medications Prescriptions: Furosemide [Lasix] 40 mg PO BID #60 tab Levofloxacin [Levaquin] 500 mg PO Q48H #2 tablet predniSONE [PredniSONE] 40 mg PO DAILY #4 tablet Home Medications: Atorvastatin [Lipitor] 40 mg PO HS #30 tablet 02/20/15 [Rx] Aspirin Enteric Coated [Aspirin EC] 81 mg PO DAILY 05/02/16 [History] Calcium Carbonate [Tums] 500 mg PO QID 05/02/16 [History] Insulin NPH, HUMAN [HumuLIN N] 6 unit SQ HS 05/02/16 [History] Insulin NPH, HUMAN [HumuLIN N] 12 unit SQ QAM 05/02/16 [History] Renal Vitamin [Renal Caps Softgel] 1 mg PO DAILY 05/02/16 [History] Atenolol [Tenormin] 25 mg PO QPM 09/06/16 [History] Docusate [Colace] 100 mg PO BID 09/06/16 [History] Hydralazine HCl 50 mg PO TID 09/06/16 [History] Lidocaine/Prilocaine CREAM [Emla] 1 appl TP AD PRN 09/06/16 [History] Lisinopril [Zestril] 10 mg PO SUTUTH@199909/06/16 [History] Lisinopril [Zestril] 20 mg PO MOWEFRSA@199909/06/16 [History] Quetiapine Fumarate [Seroquel] 50 mg PO HS 09/06/16 [History] Ergocalciferol (VITAMIN D2) [Vitamin D2] 50,000 unit PO QWEEK 12/05/16 [History] PARoxetine HCl [Paroxetine HCl] 40 mg PO DAILY 12/05/16 [History] amLODIPine [Norvasc] 5 mg PO BID 12/05/16 [History] Furosemide [Lasix] 40 mg PO BID #60 tab 12/09/16 [Rx] Levofloxacin [Levaquin] 500 mg PO Q48H #2 tablet 12/09/16 [Rx] predniSONE [PredniSONE] 40 mg PO DAILY #4 tablet 12/09/16 [Rx] Allergies/Adverse Reactions: 3 Allergy/AdvReac Type Severity Reaction Status Date / Time No Known Allergies Allergy Verified 09/06/16 17:43 Procedures/tests Complete & Pending: Procedures Performed prior 72 hours Category Date Time Status EV limited echocardiogram Routine Y 12/07/16 08:05 Completed Date of admission: 12/05/16 21:59 Primary care physician: Kenny Mckenna DO Consults: 12/06/16 12:00 Consult to Occupational Therapy [CONS] Routine Comment: Evaluate, develop and implement POC Reason for Consult: eval for ecf Consult to Physical Therapy [CONS] Routine Comment: Evaluate, develop and implement POC Reason for Consult: eval for ecf 12/07/16 07:15 Consult to Dialysis [CONS] ONCE 12/08/16 11:55 Consult to Manager Managed Backup Services [CONS] Routine Reason for SW Consult: needs ecf 12/09/16 08:45 Consult to Dialysis [CONS] ONCE Discharging clinician: Kosta Paez Anticipated date of discharge: 12/09/16 - Patient Status Disposition: Home Health Service Condition: Fair Functional capacity at discharge: uses cane/walker Overall status at discharge: patient is progressing back to baseline - Discharge Instructions Follow Up With: Kenny Mckenna DO [Primary Care Provider] - 12/15/16 1:00 pm (Please follow up as schedule...) - Diet and Activity Activity: wear oxygen at all times Diet: diabetic diet, low fat, low cholesterol, low salt diet, other (renal) Interval History: See below Hospital course: Mr. Dwyer is a 66 year old male with ESRD on HD, DM, HTN, COPD, Severe Pulm HTN , Aortic stenosis Admitted for acute hypoxic respiratory failure with pulmonary edema, COPD exacerbation and Suspected pneumonia He has made significant clinical improvement and is clinically stable to be discharged from the hospital He declined SNF placement, prefers to go home on homehealth Details of course in diagnosis section Follow up with PCP and Metalizer Qualified for home O2 Flu shot recommended - Time Spent with Patient Total time spent providing and/or coordinating discharge services: Greater than 30 minutes - Constitutional Vitals: Temp Pulse Resp BP Pulse Ox 97.3 F L 62 16 124/69 97 12/09/16 09:15 12/09/16 12:23 12/09/16 12:23 12/09/16 12:23 12/09/16 07:59 General appearance: Present: A&O X 3, pleasant, no acute distress, answers questions appropriately - Head Head exam: Present: atraumatic, normocephalic - Eye Eye exam: Present: PERRL, conjuntiva pink, sclera anicteric Pupils: Present: PERRL - Neck Neck exam general surgery: Present: supple, trachea midline. Absent: lymphadenopathy - Respiratory Respiratory exam: Present: CTAB. Absent: accessory muscle use, rales, rhonchi, wheezes - Cardiovascular Cardiovascular exam: Present: RRR, +S1, +S2. Absent: diastolic murmur, gallop, rubs, systolic murmur - GI/Abdominal GI/Abdominal exam: Present: normal bowel sounds, soft, no peritoneal signs. Absent: distended, tenderness - Extremities Exam Extremities exam: Present: warm, radial pulses palpable and symmetrical. Absent : calf tenderness, cyanotic, pedal edema - Neurological Exam Neurological exam: Present: alert, CN II-XII intact, oriented X3, no focal deficits. Absent: pronater drift, facial droop, speech deficit - Skin Skin exam: Present: dry, intact
--- NOTE | 2016-12-09 13:09 | Physician Discharge Referral ---
Home Health/Hosp Referral Info Transfer to: Home Health Attending Provider: Bull Paez Provider in Charge Post Discharge: PCP - Diagnosis (1) End stage kidney disease Priority: Secondary Status: Chronic (2) Acute respiratory failure Priority: Primary Status: Acute (3) Diabetes Priority: Secondary Status: Chronic (4) Pneumonia Priority: Primary Status: Suspected (5) HTN (hypertension) Priority: Secondary Status: Chronic (6) Anemia in chronic kidney disease Priority: Secondary Status: Chronic (7) Aortic stenosis Priority: Secondary Status: Chronic (8) Moderate to severe pulmonary hypertension Priority: Secondary Status: Chronic (9) Hyperlipidemia Priority: Secondary Status: Chronic (10) COPD exacerbation Priority: Primary Status: Acute (11) CHF (congestive heart failure) Priority: Secondary Status: Chronic (12) Elevated troponin Priority: Primary Status: Acute - Respiratory Orders Oxygen / L per min (2L per minute) Smoking Cessation: Smoking cessation has been advised. For more information, call the [place] Tobacco Quit Line at 0-516-IAAN-NOW. - Diet/Nutrition Diet/Nutrition Orders: Renal, Cardiac, No Concentrated Sweets - Services Needed Following services are medically necessary services: Nursing, Home Health Aide, Physical Therapy, Occupational Therapy - Transfer Medications Home Medications: Atorvastatin [Lipitor] 40 mg PO HS #30 tablet 02/20/15 [Rx] Aspirin Enteric Coated [Aspirin EC] 81 mg PO DAILY 05/02/16 [History] Calcium Carbonate [Tums] 500 mg PO QID 05/02/16 [History] Insulin NPH, HUMAN [HumuLIN N] 6 unit SQ HS 05/02/16 [History] Insulin NPH, HUMAN [HumuLIN N] 12 unit SQ QAM 05/02/16 [History] Renal Vitamin [Renal Caps Softgel] 1 mg PO DAILY 05/02/16 [History] Atenolol [Tenormin] 25 mg PO QPM 09/06/16 [History] Docusate [Colace] 100 mg PO BID 09/06/16 [History] Hydralazine HCl [Hydralazine HCl] 50 mg PO TID 09/06/16 [History] Lidocaine/Prilocaine CREAM [Emla] 1 appl TP AD PRN 09/06/16 [History] Lisinopril [Zestril] 10 mg PO SUTUTH@2000 09/06/16 [History] Lisinopril [Zestril] 20 mg PO MOWEFRSA@199909/06/16 [History] Quetiapine Fumarate [Seroquel] 50 mg PO HS 09/06/16 [History] Ergocalciferol (VITAMIN D2) [Vitamin D2] 50,000 unit PO QWEEK 12/05/16 [History] PARoxetine HCl [Paroxetine HCl] 40 mg PO DAILY 12/05/16 [History] amLODIPine [Norvasc] 5 mg PO BID 12/05/16 [History] Furosemide Oral Soln [Lasix] 40 mg PO BID #60 mls 12/09/16 [Rx] Allergies/Adverse Reactions: 3 Allergy/AdvReac Type Severity Reaction Status Date / Time No Known Allergies Allergy Verified 09/06/16 17:43 Certification: Further, I certify that my clinical findings support that this patient is homebound (i.e. absences from home require considerable and taxing effort and are for medical reasons or tenriism services or infrequently or short duration when for other reasons) because: Homebound Reason: Severity of cardiac or pulmonary status limits activity tolerance Attestation: My signature below is to certify that this patient is under my care and that I, or nurse practitioner, or a physician's training and development assistant working with me, has a face-to -face encounter with this patient.
[2016-12-09] MEDS: hydrALAZINE 25 MG TABLET PO SCH ×2 (13:42→16:36)
[2016-12-09] MEDS: amLODIPine 5 MG TABLET PO SCH (13:48)
[2016-12-09] MEDS ORDERED: levoFLOXacin 500 MG TABLET PO ONE (14:52)
[2016-12-09 16:53] VITALS: BP 163/94
[2016-12-09] MEDS ORDERED: 0.9 % Sodium Chloride 2,000 ML ONE (17:13)
[2016-12-10] MEDS ORDERED: Insulin DETEMIR 100 UNIT/ML X5UNITS SQ SCH (09:00)
== END 2016-12-09 16:57 | disposition home health service (06) | DRG 291 ==
LOC: 2ANU 16:31 → EMEROO 16:31 → SUATTDRO 21:59 → 2ANU 22:26
PROVIDERS: ADMIT Internal Medicine; ATTEND Internal Medicine

== ENCOUNTER 2018-06-23 13:37 | Observation (INO) ==
[2018-06-23] MEDS ORDERED: Ipratropium/Albuterol Neb 3 ML IH ONE (14:18)
--- NOTE | 2018-06-23 14:18 | Emergency Department Note ---
Disposition Clinical Impression: HCAP (healthcare-associated pneumonia), ESRD (end stage renal disease) on dialysis Disposition: Admitted As Inpatient Condition: Fair General Adult HPI - General Chief complaint: ED General Medical Stated complaint: multiple complaints Time Seen by Provider: 06/23/18 13:47 Source: patient Limitations: no limitations - History of Present Illness Pain Scale: 9 - Related Data Home Medications Medication Instructions Recorded Confirmed Aspirin Enteric Coated [Aspirin EC] 81 mg PO DAILY 05/02/16 06/23/18 Calcium Carbonate [Tums] 500 mg PO QID 05/02/16 06/23/18 Insulin NPH, HUMAN [HumuLIN N] 10 unit SQ HS 05/02/16 06/23/18 Insulin NPH, HUMAN [HumuLIN N] 10 unit SQ QAM 05/02/16 06/23/18 Renal Vitamin [Renal Caps Softgel] 1 mg PO DAILY 05/02/16 06/23/18 Atenolol [Tenormin] 25 mg PO QPM 09/06/16 06/23/18 Docusate [Colace] 100 mg PO BID 09/06/16 06/23/18 Hydralazine HCl 50 mg PO TID 09/06/16 06/23/18 Lidocaine/Prilocaine CREAM [Emla] 1 appl TP AD PRN 09/06/16 06/23/18 Lisinopril [Zestril] 10 mg PO SUTUTH@199909/06/16 06/23/18 Lisinopril [Zestril] 20 mg PO MOWEFRSA@199909/06/16 06/23/18 Quetiapine Fumarate [Seroquel] 50 mg PO HS 09/06/16 06/23/18 Ergocalciferol (VITAMIN D2) 50,000 unit PO QWEEK 12/05/16 06/23/18 [Vitamin D2] PARoxetine HCl [Paroxetine HCl] 40 mg PO DAILY 12/05/16 06/23/18 Insulin Glargine [Lantus] 10 unit SQ DAILY 06/23/18 06/23/18 Previous Rx's Medication Instructions Recorded Atorvastatin [Lipitor] 40 mg PO HS #30 tablet 02/20/15 Allergies Allergy/AdvReac Type Severity Reaction Status Date / Time No Known Allergies Allergy Verified 09/06/16 17:43 Past Medical History - Past Medical History Medical history: Reports: asthma, diabetes, dialysis, hypertension, renal disease, syncope, other Surgical history: Reports: cholecystectomy, colectomy, other Psychiatric history: Reports: no psych history - Social History Smoking Status: Never smoker Smokeless Tobacco Status: No Alcohol use: Reports: none Drug use: Reports: none Physical Exam - General Limitations: no limitations General appearance: alert, in no apparent distress Course Vital Signs Temperature 98.5 F 06/23/18 13:43 Pulse Rate 64 06/23/18 13:43 Respiratory Rate 18 06/23/18 13:43 Blood Pressure 124/70 06/23/18 13:43 O2 Sat by Pulse Oximetry 97 06/23/18 13:43 Temperature 98.6 F 06/23/18 19:03 Pulse Rate 63 06/23/18 19:03 Respiratory Rate 20 06/23/18 19:03 Blood Pressure 146/66 06/23/18 19:03 O2 Sat by Pulse Oximetry 97 06/23/18 19:03 Oxygen Delivery Oxygen Delivery Room Air Medical Decision Making - Lab Data Result diagrams: 06/23/18 14:15 06/23/18 14:15 Lab Results 06/23/18 06/23/18 06/23/18 Range/Units 14:15 14:15 14:15 WBC 7.0 (4.3-11.1) K/mcL RBC 3.90 L (4.19-5.50) M/mcL Hgb 12.6 L (12.9-16.9) g/dL Hct 38.2 (37.5-50.1) % MCV 97.9 (83.0-100.0) fL MCH 32.3 (28.0-33.3) pg MCHC 33.0 (31.6-35.5) g/dL RDW 13.6 (11.5-14.5) % Plt Count 169 (140-400) K/mcL MPV 9.2 L (9.4-12.4) fL Immature Gran % 0.6 (0-4) % Seg Neutrophils % 67.8 % Lymphocytes % 17.4 % Monocytes % 9.8 % Eosinophils % 4.0 % Basophils % 0.4 % Neutrophils # 4.8 (1.6-8.9) K/mcL Lymphocytes # 1.2 (0.6-4.6) K/mcL Monocytes # 0.7 (0.0-1.3) K/mcL Eosinophils # 0.3 (0.0-0.6) K/mcL Basophils # 0.0 (0.0-0.2) K/mcL Sodium 136 (136-145) mEq/L Potassium 4.4 (3.5-5.1) mEq/L Chloride 95 L (98-107) mEq/L Carbon Dioxide 29 (23-29) mEq/L BUN 34 H (8-23) mg/dL Creatinine 5.52 H (0.70-1.30) mg/dL Est GFR ( Amer) 13 L (> 60) Est GFR (Non-Af Amer) 10 L (> 60) BUN/Creatinine Ratio 6 (6-26) Glucose 246 H (70-105) mg/dL Calculated Osmolality 298 (280-300) Calcium 9.3 (8.6-10.3) mg/dL Troponin I 0.04 H* (< 0.04) ng/mL B-Natriuretic Peptide 579 H (Less than 100) pg/mL Attestation Statement - Attestation Attestation: I examined this patient and my medical decision-making was reviewed with the Resident Physician. I agree with the documented findings, disposition and treatment plan as described except to the extent set forth below. Patient presents to the ED with a chief complaint of cough congestion. Not feeling well. He is also having intermittent episodes where he loses consciousness and shakes. They last for a few seconds and he immediately regained consciousness. Patient is on dialysis. On examination he is in no distress. He does have diffuse expiratory wheezing and rhonchi on lung auscultation. Plan. Cardiac workup with chest x-ray. CT head. Patient has pneumonia on chest x-ray. IV antibiotics started. No further shaking episodes. Head CT unremarkable. Patient is admitted to medicine. Chest X-Ray 06/23/18 14:06 IMPRESSION: New rounded area of airspace disease in the right lung base. While this may be due to pneumonia, neoplasm needs to be excluded and follow-up to ensure resolution recommended, with a chest x-ray in 2-3 weeks after treatment for pneumonia, or a chest CT. D/ / Semaj Beck MD / Semaj Beck MD Interpreting Provider: Semaj Beck MD Head CT 06/23/18 14:09 IMPRESSION: No acute intracranial abnormality. D/ / Semaj Beck MD / Semaj Beck MD Interpreting Provider: Semaj Beck MD Brain MRI 06/23/18 16:28 IMPRESSION: Volume loss with disproportionate cerebellar atrophy. Mild to moderate chronic white matter microvascular ischemic disease. D/ / Helio Mike MD / Helio Mike MD Interpreting Provider: Helio Mike MD
[2018-06-23 14:42] LABS: Basophils % 0.4 %; Eosinophils # 0.3 K/mcL (0.0-0.6); Hematocrit 38.2 % (37.5-50.1); Hemoglobin 12.6 g/dL (12.9-16.9); Immature Granulocytes % 0.6 % (0-4); Lymphocytes # 1.2 K/mcL (0.6-4.6); Lymphocytes % 17.4 %; Mean Corpuscular Hemoglobin 32.3 pg (28.0-33.3); Mean Corpuscular Volume 97.9 fL (83.0-100.0); Mean Platelet Volume 9.2 fL (9.4-12.4); Monocytes # 0.7 K/mcL (0.0-1.3); Monocytes % 9.8 %; Neutrophils # 4.8 K/mcL (1.6-8.9); Platelet Count 169 K/mcL (140-400); Red Cell Distribution Width 13.6 % (11.5-14.5); Segmented Neutrophils % 67.8 %
[2018-06-23] MEDS ORDERED: Ipratropium Neb 0.5 MG NEBULIZER IH ONE (14:51)
[2018-06-23 14:55] LABS: Calcium 9.3 mg/dL (8.6-10.3); Potassium 4.4 mEq/L (3.5-5.1)
--- NOTE | 2018-06-23 15:02 | Emergency Department Note ---
Disposition Clinical Impression: HCAP (healthcare-associated pneumonia), ESRD (end stage renal disease) on dialysis Disposition: Admitted As Inpatient Condition: Fair Referrals: Kenny Mckenna DO [Primary Care Provider] - Forms: ED Satisfaction Letter, Work/School Release Time of Disposition: 15:41 General Adult HPI - General Chief complaint: ED General Medical Stated complaint: multiple complaints Time Seen by Provider: 06/23/18 13:47 Source: patient Mode of arrival: ambulatory Limitations: no limitations Nursing Notes Reviewed: Yes Vital Signs Reviewed: Yes - History of Present Illness HPI Narrative: 68-year-old male history of dialysis presents to the emergency department with right-sided chest pain worsening over the last 2-3 days he also had a cough for the last 2 or 3 days and worsening shortness of breath. He has been doing dialysis is Monday follows with Dr. Hand. He has been malik ving these episodes where he is face turns red his eyes rolled back and head and his arms shake these last partially couple seconds they said it is almost seizure-like activity does not see a history of seizures. 2 of these have occurred over the last 2 or 3 days. He has had worsening trouble with his balance and has had more frequent falls or last few months he did have a fall couple days ago they say denied his head did not lose consciousness this is all been due to balance he has never syncopized or Past out due to these events. His been no fevers no nausea no vomiting just the chest pain. Has no history of ACS. Otherwise no other complete a this time. Pain Scale: 9 - Related Data Home Medications Medication Instructions Recorded Confirmed Aspirin Enteric Coated [Aspirin EC] 81 mg PO DAILY 05/02/16 12/05/16 Calcium Carbonate [Tums] 500 mg PO QID 05/02/16 12/05/16 Insulin NPH, HUMAN [HumuLIN N] 6 unit SQ HS 05/02/16 12/05/16 Insulin NPH, HUMAN [HumuLIN N] 12 unit SQ QAM 05/02/16 12/05/16 Renal Vitamin [Renal Caps Softgel] 1 mg PO DAILY 05/02/16 12/05/16 Atenolol [Tenormin] 25 mg PO QPM 09/06/16 12/05/16 Docusate [Colace] 100 mg PO BID 09/06/16 12/05/16 Hydralazine HCl 50 mg PO TID 09/06/16 12/05/16 Lidocaine/Prilocaine CREAM [Emla] 1 appl TP AD PRN 09/06/16 12/05/16 Lisinopril [Zestril] 10 mg PO SUTUTH@199909/06/16 12/05/16 Lisinopril [Zestril] 20 mg PO MOWEFRSA@199909/06/16 12/05/16 Quetiapine Fumarate [Seroquel] 50 mg PO HS 09/06/16 12/05/16 Ergocalciferol (VITAMIN D2) 50,000 unit PO QWEEK 12/05/16 12/05/16 [Vitamin D2] PARoxetine HCl [Paroxetine HCl] 40 mg PO DAILY 12/05/16 12/05/16 Insulin Glargine [Lantus] 10 unit SQ DAILY 06/23/18 06/23/18 Previous Rx's Medication Instructions Recorded Atorvastatin [Lipitor] 40 mg PO HS #30 tablet 02/20/15 Allergies Allergy/AdvReac Type Severity Reaction Status Date / Time No Known Allergies Allergy Verified 09/06/16 17:43 All systems ED: reviewed and negative except as stated. Review of Systems: As Per HPI Past Medical History - Past Medical History Attestation: Yes The following information was validated with the patient. Source: patient Medical history: Reports: asthma, diabetes, dialysis, hypertension, renal disease, syncope, other Surgical history: Reports: cholecystectomy, colectomy, other Psychiatric history: Reports: no psych history - Social History Smoking Status: Never smoker Smokeless Tobacco Status: No Alcohol use: Reports: none Drug use: Reports: none Physical Exam - General Limitations: no limitations General appearance: alert, in no apparent distress - Head Head exam: atraumatic, normocephalic, normal inspection - Eye Eye exam: Present: normal appearance, PERRL, EOMI - ENT ENT exam: normal exam, normal oropharynx, mucous membranes moist - Neck Neck exam: Present: normal inspection, full ROM, trachea midline - Chest Chest inspection: Present: normal inspection, symmetric chest wall rise - Respiratory Respiratory exam: Present: other (Crackles heard throughout the lungs more stronger in the right. No respiratory distress no stridor no accessory muscle use.) - Cardiovascular Cardiovascular exam: Present: regular rate, normal rhythm, normal heart sounds - Abdominal Exam Abdominal exam: Present: soft, Non-Tender, normal bowel sounds. Absent: tenderness, distention, guarding, rebound, rigidity - Extremities Exam Extremities exam: Present: normal inspection, full ROM. Absent: tenderness, pedal edema - Back Exam Back exam: Present: normal inspection, full ROM. Absent: tenderness - Neurological Exam Neurological exam: Present: alert, oriented X3 - Skin Skin exam: Present: warm, dry, intact, normal color Course Course Narrative: We will get EKG and chest x-ray CBC BMP troponin as well as head CT. Patient cared this plan. We will give patient DuoNeb's for the difficulty in breathing. Disposition pending results. Vital Signs Temperature 98.5 F 06/23/18 13:43 Pulse Rate 64 06/23/18 13:43 Respiratory Rate 18 06/23/18 13:43 Blood Pressure 124/70 06/23/18 13:43 O2 Sat by Pulse Oximetry 97 06/23/18 13:43 Temperature 98.2 F 06/23/18 15:31 Pulse Rate 64 06/23/18 15:31 Respiratory Rate 22 06/23/18 15:31 Blood Pressure 141/67 06/23/18 15:31 O2 Sat by Pulse Oximetry 96 06/23/18 15:31 Oxygen Delivery Oxygen Delivery Room Air Medical Decision Making - [facility] Narrative Medical decision making narrative: 68-year-old male presented to the emergency department with shortness of breath and cough as well as these more frequent falls. Head CT had no acute findings. Labs were otherwise around his baseline he had a normal potassium as well as a within normal limits Bielen based on a three-day week dialysis patient. Chest x-ray did show right-sided pneumonia. Due to him going dialysis were and treat him his hospital acquired pneumonia. We will give him cefepime, azithromycin, vancomycin here in the emergency department. We will also get blood cultures. Patient okay with this plan. Patient did not meet sepsis criteria he has never as severe sepsis or septic shock. I spoke with the hospitalist Dr. Burgos who agreed to admit the patient to their service. Patient is admitted in stable condition. Chest X-Ray 06/23/18 14:06 IMPRESSION: New rounded area of airspace disease in the right lung base. While this may be due to pneumonia, neoplasm needs to be excluded and follow-up to ensure resolution recommended, with a chest x-ray in 2-3 weeks after treatment for pneumonia, or a chest CT. D/ / Semaj Beck MD / Semaj Beck MD Interpreting Provider: Semaj Beck MD Head CT 06/23/18 14:09 IMPRESSION: No acute intracranial abnormality. D/ / Semaj Beck MD / Semaj Beck MD Interpreting Provider: Semaj Beck MD - Medical Records Medical records reviewed: Yes I reviewed the patient's medical records. - Lab Data Lab results reviewed: Yes I reviewed the patient's lab results. Result diagrams: 06/23/18 14:15 06/23/18 14:15 Lab Results 06/23/18 06/23/18 Range/Units 14:15 14:15 WBC 7.0 (4.3-11.1) K/mcL RBC 3.90 L (4.19-5.50) M/mcL Hgb 12.6 L (12.9-16.9) g/dL Hct 38.2 (37.5-50.1) % MCV 97.9 (83.0-100.0) fL MCH 32.3 (28.0-33.3) pg MCHC 33.0 (31.6-35.5) g/dL RDW 13.6 (11.5-14.5) % Plt Count 169 (140-400) K/mcL MPV 9.2 L (9.4-12.4) fL Immature Gran % 0.6 (0-4) % Seg Neutrophils % 67.8 % Lymphocytes % 17.4 % Monocytes % 9.8 % Eosinophils % 4.0 % Basophils % 0.4 % Neutrophils # 4.8 (1.6-8.9) K/mcL Lymphocytes # 1.2 (0.6-4.6) K/mcL Monocytes # 0.7 (0.0-1.3) K/mcL Eosinophils # 0.3 (0.0-0.6) K/mcL Basophils # 0.0 (0.0-0.2) K/mcL Sodium 136 (136-145) mEq/L Potassium 4.4 (3.5-5.1) mEq/L Chloride 95 L (98-107) mEq/L Carbon Dioxide 29 (23-29) mEq/L BUN 34 H (8-23) mg/dL Creatinine 5.52 H (0.70-1.30) mg/dL Est GFR ( Amer) 13 L (> 60) Est GFR (Non-Af Amer) 10 L (> 60) BUN/Creatinine Ratio 6 (6-26) Glucose 246 H (70-105) mg/dL Calculated Osmolality 298 (280-300) Calcium 9.3 (8.6-10.3) mg/dL Troponin I 0.04 H* (< 0.04) ng/mL - Radiology Data Radiology results reviewed: Yes I reviewed the patient's radiology results. - EKG Data EKG #1 EKG attestation: Yes I reviewed and interpreted this EKG. EKG results narrative: EKG done at 1404 review myself and the attending shows sinus rhythm a rate of 67, [place] interval 1-17, QRS 127, QTC 506. There is no acute ST changes no acute T-wave changes no other signs of ischemia. There is a sinus pause. There is a first-degree heart block No other signs of heart block, hypertrophy, heart strain. No WPW/Brugada/HOCM. EKG is otherwise unchanged based on the sinus on when compared with old EKG done 04/04/17.
[2018-06-23 15:21] LABS: Troponin I 0.04 ng/mL (< 0.04)
[2018-06-23] MEDS ORDERED: Azithromycin 500 MG in D5% in Water 250 ML IVPB ONE (15:30)
[2018-06-23] MEDS ORDERED: Cefepime HCl 2,000 MG in Water for inj. (sterile) 20 ML 20 ML IVP STA (15:30)
[2018-06-23] MEDS ORDERED: traMADol 50 MG TABLET PO PRN (15:48)
[2018-06-23] MEDS ORDERED: Naloxone 0.4 MG/ML INJ IVP PRN (15:48)
[2018-06-23] MEDS ORDERED: Ipratropium/Albuterol Neb 3 ML IH PRN (15:56)
[2018-06-23] MEDS ORDERED: *HR* Dextrose 50 % in Water (Syg) 50 ML SYRINGE IVP PRN (15:56)
[2018-06-23] MEDS ORDERED: Dextrose Gel 15 GM/37.5 ML TUBE PO PRN ×2 (15:56)
[2018-06-23] MEDS ORDERED: D5% in Water 1,000 ML IVC PRN (15:56)
[2018-06-23] MEDS: Azithromycin 500 MG in D5% in Water 250 ML IVPB SCH (16:25)
--- NOTE | 2018-06-23 16:36 | Internal Med History&Physical ---
Date of Encounter: 06/23/18 Time of Encounter: 16:26 Internal Medicine - H&P: HPI Chief complaint: seizure like acitivity. productive cough Admitted From: Home Plans for Post Hospital Care: Home History of present illness: Mr. Dwyer is a 68 year old male PMH or moderate-severe Pulm HTN, HTN, DM, ESRD on HD (M,W,F), COPD, and HFpEF. Patient was brought to the hospital due to seizure like activity and productive cough. Information obtained from patient's girlfriend at bedside. She reports that for the past couple of years the patient has been experiencing frequent falls due to having and stable gait. She also report for the past couple of weeks the patient has been having this episodes of jerky movements, where he would start moving his upper part of the body and rolling his eyes backwards, reports that this episodes last about 1 minute and after it the patient does not recalls what has happened and goes back to his baseline mental status. She denies any bitting of his tongue or urinary incontinence. the patient denies any aura before which episodes. She reports for the past week this episodes of jerky movements have become more frequent. Yesterday morning the patient had one of those episodes after he had eaten dinner, and she thought that the patient was shocking because his face turned red and the patient was coughing a lot. She also reports the patient has been having this productive cough of c lear/yellowish sputum for about a week now. Denied fever or chills, but reports that the patient has been sweating a lot. Patient reports that he still makes urine. Denies urinary symptoms. Reports constipation. Past Med Surg Social Fam HX - Past Medical History Medical history: asthma, diabetes, dialysis, hypertension, renal disease, syncope, other Additional medical history: dysphagia Psychiatric history: no psych history - Past Surgical History Surgical History: cholecystectomy, colectomy, other Additional surgical history: fistula left arm, peg tubal and removal - Social History Smoking Status: Never smoker Smokeless Tobacco Status: No Alcohol use: none Drug use: none - Family History Mother Living Status: Hx Family Cardiac Disorders: Yes Hx Family Cancer: Yes (metastic breast cancer) Internal Medicine - H&P: Meds Atorvastatin [Lipitor] 40 mg PO HS #30 tablet 02/20/15 [Rx] Aspirin Enteric Coated [Aspirin EC] 81 mg PO DAILY 05/02/16 [History] Calcium Carbonate [Tums] 500 mg PO QID 05/02/16 [History] Insulin NPH, HUMAN [HumuLIN N] 10 unit SQ HS 05/02/16 [History] Insulin NPH, HUMAN [HumuLIN N] 10 unit SQ QAM 05/02/16 [History] Renal Vitamin [Renal Caps Softgel] 1 mg PO DAILY 05/02/16 [History] Atenolol [Tenormin] 25 mg PO QPM 09/06/16 [History] Docusate [Colace] 100 mg PO BID 09/06/16 [History] Hydralazine HCl 50 mg PO TID 09/06/16 [History] Lidocaine/Prilocaine CREAM [Emla] 1 appl TP AD PRN 09/06/16 [History] Lisinopril [Zestril] 10 mg PO SUTUTH@199909/06/16 [History] Lisinopril [Zestril] 20 mg PO MOWEFRSA@199909/06/16 [History] Quetiapine Fumarate [Seroquel] 50 mg PO 09/06/16 [History] Ergocalciferol (VITAMIN D2) [Vitamin D2] 50,000 unit PO QWEEK 12/05/16 [History] PARoxetine HCl [Paroxetine HCl] 40 mg PO DAILY 12/05/16 [History] Insulin Glargine [Lantus] 10 unit SQ DAILY 06/23/18 [History] Allergy/AdvReac Type Severity Reaction Status Date / Time No Known Allergies Allergy Verified 09/06/16 17:43 All Systems PM: A 10-system review of systems was performed and is negative for pertinent findings except as documented above in the HPI. - Constitutional Constitutional: excessive sweating, weakness, no chills, no fever(s) - EENT Eyes: no irritation, no itchy eyes Nose, mouth and throat: no bleeding gums, no mouth pain, no nasal congestion - Cardiovascular Cardiovascular ROS IM: diaphoresis, no chest pain, no dyspnea on exertion, no lightheadedness, no orthopnea, no palpitations, no syncope - Respiratory Respiratory: cough, dyspnea on exertion, chest congestion, excessive phlegm production, change in phlegm color - Gastrointestinal Gastrointestinal: nausea, no abdominal pain, no vomiting - Genitourinary Genitourinary ROS male: no dysuria, no urinary hesitancy, no urinary incontinence, no urinary urgency - Musculoskeletal Musculoskeletal ROS IM: no atrophy, no numbness, no stiffness - Integumentary Integumentary IM: no erythema, no jaundice - Neurological Neurological ROS: disequilibrium, frequent falls, no abnormal gait, no focal weakness, no headache(s) - Psychiatric Psychiatric: no anxiety, no hopelessness, no irritability - Endocrine Endocrine IM: no cold intolerance, no excessive sweating - Hematologic/Lymphatic Hematologic/Lymphatic: no lymphadenopathy - Allergic/Immunologic Allergic/Immunologic: no GI upset with certain foods - Constitutional Vitals: Temp Pulse Resp BP Pulse Ox 98.2 F 64 22 141/67 96 06/23/18 15:31 06/23/18 15:31 06/23/18 15:31 06/23/18 15:31 06/23/18 15:31 Exam: Vitals: Reviewed General: Alert and oriented x3. In mild distress due to cough. Skin: Normal color, no rash, no lesions. HEENT: EOM, pupils equal, round and reactive. Cardiovascular: RRR, normal S1 & S2, no rubs, murmurs or gallops. Lungs: scattered b/l wheezes, rales Left lower lobe >r, no crackles. Abdomen: Soft, non-tender, no rigidity. Extremities: No deformity, no edema or tenderness, no joint swelling or clubbing. Neurological: No focal neurological deficits. Rest of the physical exam is non contributory Internal Med - H&P Results - Labs CBC & Chem 7: 06/23/18 14:15 06/23/18 14:15 Labs: Short CBC 06/23/18 Range/Units 14:15 WBC 7.0 (4.3-11.1) K/mcL Hgb 12.6 L (12.9-16.9) g/dL Hct 38.2 (37.5-50.1) % Plt Count 169 (140-400) K/mcL Neutrophils # 4.8 (1.6-8.9) K/mcL BMP 06/23/18 14:15 Sodium 136 Potassium 4.4 Chloride 95 L Carbon Dioxide 29 BUN 34 H Creatinine 5.52 H Glucose 246 H Calcium 9.3 Cardiac Enzymes 06/23/18 Range/Units 14:15 Troponin I 0.04 H* (< 0.04) ng/mL - Impressions ITS Impressions Chest X-Ray 06/23/18 14:06 IMPRESSION: New rounded area of airspace disease in the right lung base. While this may be due to pneumonia, neoplasm needs to be excluded and follow-up to ensure resolution recommended, with a chest x-ray in 2-3 weeks after treatment for pneumonia, or a chest CT. D/ / Semaj Beck MD / Semaj Beck MD Interpreting Provider: Semaj Beck MD Head CT 06/23/18 14:09 IMPRESSION: No acute intracranial abnormality. D/ / Semaj Beck MD / Semaj Beck MD Interpreting Provider: Semaj Beck MD - Diagnostic Studies Chest x-ray Status: image reviewed by me (right lower lobe infiltrate) - Assessment and Plan (1) Witnessed seizure-like activity Current Visit: Yes Status: Acute Assessment and plan: per patient's girlfriend at bedside, he has been having seizure like activities lastiing about 1 minute. she also report frequent falls. will obtain a brain MRI Neurology consult, recommendations appreciated (2) ESRD (end stage renal disease) on dialysis Current Visit: Yes Status: Chronic Assessment and plan: Patient on HD (M,W,F). Avoid nephrotoxic medications Nephrology consulted fluids restriction to 2 litters a day. (3) COPD exacerbation Current Visit: No Status: Acute Assessment and plan: patient with mild scattered wheezing. will start patient on Methyl-prednisolone 40mg/IV BID. Bronchodilators Q4RT scheduled. incentive spirometry. started on broad spectrum IV antibiotics. (4) DVT prophylaxis Current Visit: No Status: Chronic Assessment and plan: started on heparin subQ (5) Hypertension Current Visit: No Status: Chronic Assessment and plan: Will resume home dose of atenolol 25mg/PO QPM. will hold home dose of hydralazine 50mg/PO BID for now. will monitor and adjust medications accordingly. Qualifiers: Hypertension type: essential hypertension Qualified Code(s): I10 - Essential (primary) hypertension (6) Aortic stenosis Current Visit: No Status: Chronic Qualifiers: Cardiac valve disease etiology: etiology unspecified Qualified Code(s): I35.0 - Nonrheumatic aortic (valve) stenosis (7) Diabetes Current Visit: No Status: Chronic Assessment and plan: Hyperglycemia. Patient is started on Levemir 10 units twice a day, plus lispro low-dose before meals. Carbs controlled diet. 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 mellitus intermodal dispatcher insulin use: with nursing home use Diabetes mellitus complication status: with kidney complications Diabetes mellitus complication detail: with chronic kidney disease Chronic kidney disease stage: on chronic dialysis Qualified Code(s): E11.22 - Type 2 diabetes mellitus with diabetic chronic kidney disease; N18.6 - End stage renal disease; Z99.2 - Dependence on renal dialysis; Z99.2 - Dependence on renal dialysis; Z99.2 - Dependence on renal dialysis; N18.6 - End stage renal disease; N18.6 - End stage renal disease; N18.6 - End stage renal disease; Z79.4 - intermodal customer service (current) use of insulin; Z79.4 - intermodal customer service (current) use of insulin; Z79.4 - intermodal customer service (current) use of insulin; Z79.4 - assisted (current) use of insulin; Z99.2 - Dependence on renal dialysis (8) Elevated troponin Current Visit: No Status: Chronic Assessment and plan: most likely due to demand vs ESRD. will trend trops. (9) Hyperlipidemia Current Visit: No Status: Chronic Assessment and plan: On atorvastatin 20 mg by mouth at bedtime. Qualifiers: Hyperlipidemia type: unspecified Qualified Code(s): E78.5 - Hyperlipidemia, unspecified (10) Moderate to severe pulmonary hypertension Current Visit: No Status: Chronic (11) Pneumonia Current Visit: No Status: Acute Assessment and plan: XR/XR chest 1V portable IMPRESSION: New rounded area of airspace disease in the right lung base. While this may be due to pneumonia, neoplasm needs to be excluded and follow-up to ensure resolution recommended, with a chest x-ray in 2-3 weeks after treatment for pneumonia, or a chest CT. Plan will cover patient for possible aspiration pneumonia. started on piperacillin/tazobactam 3.375mg/IV Q8HRs sputum culture and gram stain urine for atypical organism sent azithromycin 500mg/IV daily Qualifiers: Pneumonia type: due to unspecified organism Laterality: right Lung location: lower lobe of lung Qualified Code(s): J18.1 - Lobar pneumonia, unspecified organism - Time Spent With Patient Total time spent is greater than 50% in coordination of care (as documented) at patient's floor/unit and/or counseling patient: Greater than 35 minutes (45)
[2018-06-23] MEDS ORDERED: Ondansetron 4 MG/2 ML VIAL IVP PRN (16:37)
[2018-06-23] MEDS: MethylPREDNISolone 40 MG/ML VIAL IVP SCH ×2 (20:00→20:13)
[2018-06-23] MEDS: Piperacillin/Tazobactam 3.375 GM in 0.9 % Sodium Chloride Mini Bag 100 ML IVPB SCH (20:12)
[2018-06-23] MEDS: *HR* Heparin 5,000 UNIT/ML VIAL SQ SCH (20:12)
[2018-06-23] MEDS: Insulin LISPRO 300 UNITS/3 ML VIAL SQ SCH (20:14)
[2018-06-23] MEDS: Insulin DETEMIR 100 UNIT/ML X5UNITS SQ SCH (20:31)
[2018-06-24 02:18] LABS: Basophils % 0.1 %; Eosinophils % 0.6 %; Immature Granulocytes % 0.6 % (0-4); Lymphocytes # 0.7 K/mcL (0.6-4.6); Lymphocytes % 10.5 %; Mean Corpuscular HGB Conc 32.4 g/dL (31.6-35.5); Mean Corpuscular Hemoglobin 32.1 pg (28.0-33.3); Mean Corpuscular Volume 98.9 fL (83.0-100.0); Mean Platelet Volume 9.1 fL (9.4-12.4); Monocytes # 0.2 K/mcL (0.0-1.3); Monocytes % 2.7 %; Neutrophils # 5.8 K/mcL (1.6-8.9); Platelet Count 151 K/mcL (140-400); Red Blood Count 3.74 M/mcL (4.19-5.50); Red Cell Distribution Width 13.6 % (11.5-14.5); Segmented Neutrophils % 85.5 %
[2018-06-24 02:39] LABS: Calcium 9.1 mg/dL (8.6-10.3); Magnesium 2.3 mg/dL (1.6-2.6); Phosphorous 3.3 mg/dL (2.7-4.5); Potassium 4.7 mEq/L (3.5-5.1); Troponin I 0.03 ng/mL (< 0.04)
[2018-06-24] MEDS: *HR* Heparin 5,000 UNIT/ML VIAL SQ SCH ×2 (05:36→18:16)
[2018-06-24] MEDS: Piperacillin/Tazobactam 3.375 GM in 0.9 % Sodium Chloride Mini Bag 100 ML IVPB SCH ×2 (05:36→18:30)
[2018-06-24] MEDS: MethylPREDNISolone 40 MG/ML VIAL IVP SCH (05:36)
[2018-06-24] MEDS: Aspirin Enteric Coated 81 MG Tablet PO SCH (08:54)
[2018-06-24] MEDS: Insulin DETEMIR 100 UNIT/ML X5UNITS SQ SCH ×2 (08:55→20:50)
[2018-06-24] MEDS: Insulin LISPRO 300 UNITS/3 ML VIAL SQ SCH ×4 (08:55→18:32)
[2018-06-24] MEDS ORDERED: cefTRIAXone 1,000 MG in Water for inj. (sterile) 20 ML 10 ML IVP SCH (09:00)
--- NOTE | 2018-06-24 11:45 | Nephrology Consult Note ---
Date of Encounter: 06/24/18 Time of Encounter: 11:05 Assessment and Plan (1) ESRD (end stage renal disease) on dialysis Current Visit: Yes Status: Chronic Plan for next HD tomorrow (Monday). I logged into the [facility] dialysis unit and reviewed his dialysis records: he has not missed HD recently. I follow him as his primary nephrology and he dialyzes every MWF via a LUE AVF. He still makes urine, and I recommend adding diuretics today for his dyspnea, which he affirmed was worse than typical. Of note he has Av disease history and with his syncope-like event, his Av may need to be considered in the ddx. Will defer to the primary team. Anemia of CKD: goal 10-11. Will monitor. Thank you for consulting the [facility]. Will follow with you. (2) Witnessed seizure-like activity Current Visit: Yes Status: Acute As per primary/neuro (3) Anemia in chronic kidney disease Current Visit: No Status: Chronic See above Qualifiers: Chronic kidney disease stage: on chronic dialysis Qualified Code(s): N18.6 - End stage renal disease; D63.1 - Anemia in chronic kidney disease; Z99.2 - Dependence on renal dialysis (4) Physical deconditioning Current Visit: No Status: Chronic Over the last 1-2 years I have observed him at the dialysis unit in which his strength has slowly declines and thus he is required a walker and/or cane History of Present Illness - Reason for Consult Consult date: 06/24/18 end stage renal disease Requesting physician: Anand Zurita - Chief Complaint ESRD - History of Present Illness The patient is a very pleasant 68-year-old male well known to me with a past medical history of end-stage renal disease on hemodialysis thrice weekly Monday/Monday/Monday, mild cognitive impairment, hypertension, anemia of chronic kidney disease, frailty, and history of out of hospital arrest who presented with recent syncopal/seizure like events. He reported feeling relatively well today, and did not affirm nausea, vomiting, diarrhea, chest pain; but he did affirm shortness of breath, which he described as slightly worse than normal. He said that he does not make much urine anymore he reported that he completed all of his dialysis on Monday. I law into the [facility] to access his medical records from the dialysis unit and he dialyzes at the unit in [place], [place], for approximately 225 minutes with a target weight of 96 KG via a left arm AV fistula. Past Med Surg Social Fam HX - Past Medical History Medical history: asthma, CHF, diabetes, dialysis, hypertension, renal disease, syncope, other Additional medical history: pericardial effusion. pulm HTN Psychiatric history: no psych history - Past Surgical History Surgical History: cholecystectomy, colectomy, other Additional surgical history: fistula left arm, peg tubal and removal - Social History Smoking Status: Never smoker Smokeless Tobacco Status: No Alcohol use: none Drug use: none - Family History Mother Living Status: Hx Family Cardiac Disorders: Yes Hx Family Cancer: Yes (metastic breast cancer) Medications and Allergies Atorvastatin [Lipitor] 40 mg PO HS #30 tablet 02/20/15 [Rx] Aspirin Enteric Coated [Aspirin EC] 81 mg PO DAILY 05/02/16 [History] Calcium Carbonate [Tums] 1,000 mg PO BID 05/02/16 [History] Insulin NPH, HUMAN [HumuLIN N] 10 - 12 unit SQ TIDWM 05/02/16 [History] Renal Vitamin [Renal Caps Softgel] 1 mg PO DAILY 05/02/16 [History] Atenolol [Tenormin] 25 mg PO QPM 09/06/16 [History] Docusate [Colace] 100 mg PO BID 09/06/16 [History] Hydralazine HCl 50 mg PO TID 09/06/16 [History] Lidocaine/Prilocaine CREAM [Emla] 1 appl TP AD PRN 09/06/16 [History] Lisinopril [Zestril] 10 mg PO SUTUTH@199909/06/16 [History] Lisinopril [Zestril] 20 mg PO MOWEFRSA@199909/06/16 [History] Quetiapine Fumarate [Seroquel] 50 mg PO HS 09/06/16 [History] Ergocalciferol (VITAMIN D2) [Vitamin D2] 50,000 unit PO [place] 12/05/16 [History] PARoxetine HCl [Paroxetine HCl] 40 mg PO DAILY 12/05/16 [History] Insulin Glargine [Lantus] 10 unit SQ HS 06/23/18 [History] Cyanocobalamin (Vitamin B-12) [Vitamin B12] 1,000 mcg PO DAILY 06/24/18 [ History] Allergy/AdvReac Type Severity Reaction Status Date / Time albuterol AdvReac Shakiness Verified 06/23/18 21:12 Review of Systems All Systems: reviewed and no additional remarkable complaints except as stated Exam - Vital Signs Vital signs: Initial Vital Signs Temp Pulse Resp BP Pulse Ox 98.5 F 64 18 124/70 97 06/23/18 13:43 06/23/18 13:43 06/23/18 13:43 06/23/18 13:43 06/23/18 13:43 Vital Signs - Last 8 Hours Temp Pulse Resp BP Pulse Ox 06/24/18 06:33 98 F 73 20 141/78 94 06/24/18 04:13 98.3 F 65 20 119/64 93 Intake and Output 06/23/18 06/24/18 06/24/18 23:59 07:59 15:59 Intake Total 740 / 740 0 / 480 480 / 480 Output Total 0 / 0 0 / 0 Balance 740 / 740 0 / 480 480 / 480 Intake: IV Fluids 500 / 500 0 / 0 Zithromax 500 mg In Dextrose 5% 250 / 250 250 ML @ 252 mls/hr IVPB ONCE ONE Rx#:[id number] Zosyn 3.375 GM In 0.9 % Sodium 0 / 0 Chloride (Mini-Bag +) 100 ML @ 25 mls/hr IVPB Q12HR [facility] Rx#: [id number] Vancocin 1,500 MG In 0.9 % 250 / 250 Sodium Chloride 250 ML @ 166.67 mls/hr IVPB ONCE ONE Rx#: [id number] Oral 240 / 240 0 / 480 480 / 480 Output: Urine 0 / 0 0 / 0 Other: Meal Breakfast Percent of Meal Consumed 100% Weight 95.2 kg Blood Glucose* 208 245 Patient Weight 06/24/18 23:59 Weight 95.2 kg - General Appearance General appearance: well-developed, well-nourished, appears started age, frail EENT: ATNC, PERRL, mucous membranes moist Neck: supple Respiratory: clear (but diminished bibasilar breath sounds) Cardiology: no edema, regular rate, regular rhythm, normal S1, normal S2 - Dialysis Access Dialysis Vascular Access: Arteriovenous Fistula (left upper extremity AVF with +thrill/bruit) thrill: Yes bruit: Yes Gastrointestinal: normoactive bowel sounds, no tenderness, no guarding Integumentary: warm and dry, ecchymotic Neurologic: no focal deficit, no asterixis, alert and oriented x3 Additional Comments: He was evaluated while sitting inthe bedside chair Musculoskeletal: no cyanosis, no clubbing Psychiatric: mood/affect appropriate, cooperative Results - Lab Results 06/24/18 02:03 06/24/18 02:03 Most recent lab results 06/24/18 02:03 Calcium 9.1 Phosphorus 3.3 Magnesium 2.3 Consult Discharge Plan - Plan Referrals: Kenny Mckenna DO [Primary Care Provider] -
[2018-06-24] MEDS ORDERED: Furosemide 40 MG/4 ML VIAL IVP ONE (11:47)
--- NOTE | 2018-06-24 12:24 | Internal Med Progress Note ---
Hospitalist Progress Note - Encounter Date of Encounter: 06/24/18 Time of Encounter: 12:22 - Subjective Interval History: I have seen and evaluated the patient at bedside. Patient reports feeling better today, denies chest pain, shortness or productive cough. denies abdominal pain,nausea or vomiting. no witnessed seizures like activity while hospitalized. - Exam Vitals: Temp Pulse Resp BP Pulse Ox 98.5 F 61 20 127/72 95 06/24/18 12:05 06/24/18 12:05 06/24/18 12:05 06/24/18 12:05 06/24/18 12:05 Exam: Vitals: Reviewed General: Alert and oriented x3. In no acute distress. Cardiovascular: RRR, normal S1 & S2, no rubs, murmurs or gallops. Lungs: CTA b/l, no rales, wheezing or crackles. Abdomen: Soft, non-tender, no rigidity. Extremities: No edema Neurological: No focal neurological deficits. Rest of the physical exam is non contributory - Assessment and Plan (1) Witnessed seizure-like activity Current Visit: Yes Status: Acute Assessment and Plan: no seizure like active while in the hospital. MR/MR head/brain wo con IMPRESSION: Volume loss with disproportionate cerebellar atrophy. Mild to moderate chronic white matter microvascular ischemic disease. EEG ordered neurology recommendations appreciated. (2) ESRD (end stage renal disease) on dialysis Current Visit: Yes Status: Chronic Assessment and Plan: avoid nephrotoxic medications. started on furosemide 40mg/PO daily renal replacement therapy per nephrology recommendations (3) COPD exacerbation Current Visit: No Status: Acute Assessment and Plan: chest is clear to auscultation. continue bronchodilators Q4RT Scheduled discontinue Methyl-prednisolone started on prednisone 40mg/PO daily on broad spectrum IV antibiotics. (4) Hypertension Current Visit: No Status: Chronic Assessment and Plan: BP is well controlled. patient is on atenolol 25mg/PO QPM. started on furosemide 40mg/PO daily. (5) Aortic stenosis Current Visit: No Status: Chronic Assessment and Plan: patient presenting with frequent falls. syncope? will ordered TTE to evaluate progression of aortic stenosis. (6) Diabetes Current Visit: No Status: Chronic Assessment and Plan: blood sugar is sub-optimally controlled, likely due to IV steroids. increase levemir to 15 units BID and lispro to 4 units ac. continue lispro low dose sliding scale ac. (7) Elevated troponin Current Visit: No Status: Ruled-out (8) Hyperlipidemia Current Visit: No Status: Chronic Assessment and Plan: On atorvastatin 40 mg by mouth at bedtime. (9) Moderate to severe pulmonary hypertension Current Visit: No Status: Chronic (10) Pneumonia Current Visit: No Status: Acute Assessment and Plan: XR/XR chest 1V portable IMPRESSION: New rounded area of airspace disease in the right lung base. While this may be due to pneumonia, neoplasm needs to be excluded and follow-up to ensure resolution recommended, with a chest x-ray in 2-3 weeks after treatment for pneumonia, or a chest CT. Plan Continue IV antibiotics for at least 24 more hours on piperacillin/tazobactam and azithromycin urine for atypical organism pending. DVT Prophylaxis: On heparin subq - Summary of Assessment and Plan Summary of Assessment and Plan: Patient to remain in the hospital due to pneumonia on broad spectrum IV antibiotics. - Time Spent with Patient Total time spent is greater than 50% in coordination of care (as documented) at patient's floor/unit and/or counseling patient: Greater than 35 minutes (40) Plan of Care Discussed with: patient (and the nurse.) Internal Medicine: Result - Labs CBC & Chem 7: 06/24/18 02:03 06/24/18 02:03 Labs: Short CBC 06/23/18 06/24/18 Range/Units 14:15 02:03 WBC 7.0 6.7 (4.3-11.1) K/mcL Hgb 12.6 L 12.0 L (12.9-16.9) g/dL Hct 38.2 37.0 L (37.5-50.1) % Plt Count 169 151 (140-400) K/mcL Neutrophils # 4.8 5.8 (1.6-8.9) K/mcL BMP 06/23/18 06/24/18 14:15 02:03 Sodium 136 137 Potassium 4.4 4.7 Chloride 95 L 96 L Carbon Dioxide 29 29 BUN 34 H 39 H Creatinine 5.52 H 6.17 H Glucose 246 H 311 H Calcium 9.3 9.1 Cardiac Enzymes 06/23/18 06/23/18 06/24/18 Range/Units 14:15 20:27 02:03 Troponin I 0.04 H* 0.04 H* 0.03 (< 0.04) ng/mL 06/24/18 06/24/18 Range/Units 02:03 07:50 Troponin I 0.03 0.03 (< 0.04) ng/mL - Impressions Impressions Chest X-Ray 06/23/18 14:06 IMPRESSION: New rounded area of airspace disease in the right lung base. While this may be due to pneumonia, neoplasm needs to be excluded and follow-up to ensure resolution recommended, with a chest x-ray in 2-3 weeks after treatment for pneumonia, or a chest CT. D/ / Semaj Beck MD / Semaj Beck MD Interpreting Provider: Semaj Beck MD Head CT 06/23/18 14:09 IMPRESSION: No acute intracranial abnormality. D/ / Semaj Beck MD / Semaj Beck MD Interpreting Provider: Semaj Bcek MD Brain MRI 06/23/18 16:28 IMPRESSION: Volume loss with disproportionate cerebellar atrophy. Mild to moderate chronic white matter microvascular ischemic disease. D/ / Helio Mike MD / Helio Mike MD Interpreting Provider: Helio Mike MD Consult Discharge Plan - Plan Referrals: Kenny Mckenna DO [Primary Care Provider] - (4) Hypertension Qualifiers: Hypertension type: essential hypertension Qualified Code(s): I10 - Essential (primary) hypertension (5) Aortic stenosis Qualifiers: Cardiac valve disease etiology: etiology unspecified Qualified Code(s): I35.0 - Nonrheumatic aortic (valve) stenosis (6) Diabetes 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 mellitus ferry terminal agent insulin use: with half-way use Diabetes mellitus complication status: with kidney complications Diabetes mellitus complication detail: with chronic kidney disease Chronic ki dney disease stage: on chronic dialysis Qualified Code(s): E11.22 - Type 2 diabetes mellitus with diabetic chronic kidney disease; N18.6 - End stage renal disease; Z99.2 - Dependence on renal dialysis; Z99.2 - Dependence on renal dialysis; Z99.2 - Dependence on renal dialysis; N18.6 - End stage renal disease; N18.6 - End stage renal disease; N18.6 - End stage renal disease; Z79.4 - intermediate project manager (current) use of insulin; Z79.4 - intermediate project manager (current) use of insulin; Z79.4 - [facility] (current) use of insulin; Z79.4 - intermediate project manager (current) use of insulin; Z99.2 - Dependence on renal dialysis (8) Hyperlipidemia Qualifiers: Hyperlipidemia type: unspecified Qualified Code(s): E78.5 - Hyperlipidemia, unspecified (10) Pneumonia Qualifiers: Pneumonia type: due to unspecified organism Laterality: right Lung location: lower lobe of lung Qualified Code(s): J18.1 - Lobar pneumonia, unspecified organism
--- NOTE | 2018-06-24 12:25 | Neurology - Consult Note ---
Date of Encounter: 06/24/18 Time of Encounter: 12:23 Assessment and Plan (1) Witnessed seizure-like activity Current Visit: Yes Status: Acute This patient who noted to have this witnessed seizure type of activity predominantly upper extremities patient also not able to recall any of those events By history is does sound like like seizures but the same time it seems to be happening in the context that it is started this lightheadedness and then he had this cough and redness of the face and to start coughing profusely afterwards, Though seizures remains a possibility but it could be related to vasovagal phenomena triggered by cough or perhaps reflex. Sometimes due to lack of oxygenation hypoperfusion patient could have seizure- like symptoms and in fact it could be convulsive at times/ Suggest imaging studies of the brain at the same time we will get an EEG We will hold off for any anticonvulsive medication at this time Also recommend treatment for this chronic cough as well as to look for any significant GI reflux as it may be the contributing factor At the same time check for any cardiac arrhythmias and check for any other metabolic dysfunction. Also get a CT angiogram of the neck especially to look for any structural abnormalities or any significant stenosis in the posterior circulation (2) Syncope Current Visit: No Status: Acute Qualifiers: Syncope type: vasovagal syncope Qualified Code(s): R55 - Syncope and collapse History of Present Illness HPI: Mr. Dwyer is a 68 year old male moderate-severe Pulm HTN, HTN, DM, ESRD on HD (M,W,F), COPD, and HFpEF. Patient was brought to the hospital due to seizure like activity and productive cough. According to the patient was not able to remember much but history is provided by his family that he is been experiencing these difficulty with a gait and balance frequent falls but most recently having these episodes of jerky movements, where he would start moving his upper part of the body and rolling his eyes backwards, reports that this episodes last about 1 minute and after it the patient does not recalls what has happened and goes back to his baseline mental status. She denies any bitting of his tongue or urinary incontinence. the patient denies any aura before which episodes. She reports for the past week this episodes of jerky movements have become more frequent. Yesterday morning the patient had one of those episodes after he had eaten dinner, and she thought that the patient was shocking because his face turned red and the patient was coughing a lot. She also reports the patient has been having this productive cough of clear/yellowish sputum for about a week now. Denied fever or chills, but reports that the patient has been sweating a lot. Patient had an MRI of the brain that did not show any acute abnormality but it did shows significant cerebellar atrophy Past Med Surg Social Fam HX - Past Medical History Medical history: asthma, CHF, diabetes, dialysis, hypertension, renal disease, syncope, other Additional medical history: pericardial effusion. pulm HTN Psychiatric history: no psych history - Past Surgical History Surgical History: cholecystectomy, colectomy, other Additional surgical history: fistula left arm, peg tubal and removal - Social History Smoking Status: Never smoker Smokeless Tobacco Status: No Alcohol use: none Drug use: none - Family History Mother Living Status: Hx Family Cardiac Disorders: Yes Hx Family Cancer: Yes (metastic breast cancer) Medications and Allergies Atorvastatin [Lipitor] 40 mg PO HS #30 tablet 02/20/15 [Rx] Aspirin Enteric Coated [Aspirin EC] 81 mg PO DAILY 05/02/16 [History] Calcium Carbonate [Tums] 500 mg PO QID 05/02/16 [History] Insulin NPH, HUMAN [HumuLIN N] 10 unit SQ HS 05/02/16 [History] Insulin NPH, HUMAN [HumuLIN N] 10 unit SQ QAM 05/02/16 [History] Renal Vitamin [Renal Caps Softgel] 1 mg PO DAILY 05/02/16 [History] Atenolol [Tenormin] 25 mg PO QPM 09/06/16 [History] Docusate [Colace] 100 mg PO BID 09/06/16 [History] Hydralazine HCl 50 mg PO TID 09/06/16 [History] Lidocaine/Prilocaine CREAM [Emla] 1 appl TP AD PRN 09/06/16 [History] Lisinopril [Zestril] 10 mg PO SUTUTH@199909/06/16 [History] Lisinopril [Zestril] 20 mg PO MOWEFRSA@199909/06/16 [History] Quetiapine Fumarate [Seroquel] 50 mg PO HS 09/06/16 [History] Ergocalciferol (VITAMIN D2) [Vitamin D2] 50,000 unit PO QWEEK 12/05/16 [History] PARoxetine HCl [Paroxetine HCl] 40 mg PO DAILY 12/05/16 [History] Insulin Glargine [Lantus] 10 unit SQ DAILY 06/23/18 [History] Allergy/AdvReac Type Severity Reaction Status Date / Time albuterol AdvReac Shakiness Verified 06/23/18 21:12 All Systems: The remainder of the systems were reviewed and are negative Physical Examination - Vital Signs Vital Signs: Initial Vital Signs Temp Pulse Resp BP Pulse Ox 98.5 F 64 18 124/70 97 06/23/18 13:43 06/23/18 13:43 06/23/18 13:43 06/23/18 13:43 06/23/18 13:43 - Exam Exam: GENERAL: Comfortable in no acute distress HEENT: Normal LUNGS: CTA HEART: RRR, S1 S2 Audible, no murmur EXTREMITIES: No Pedal edema. DETAILED NEUROLOGICAL EXAMINATION: MENTAL STATUS: Oriented to person, place, date and situation. Memory: knows the President, Aware of recent events Recent Memory Intact, Attention span is normal Cranial Nerve Examination: CN - II: Visual Acuity, Field of Vision Normal, Fundus examination: No disk edema, Pupils- size shape reaction to light and accommodation: All normal. CN III, IV, : External ocular movements were intact, Pupils were reactive, Nodrooping of the eyelids CN V: Sensation over the face to light touch and pinprick all normal. Corneal reflexes not tested, jaw jerk normal. CN VII: No facial asymmetry, no flattening of nasolabial folds, no difficulty in closing the eyes, no loss of forehead wrinkles, no difficulty in eye-closure, frowning raising eyebrows. CNVIII: No significant hearing loss CN IX, X: Uvula centralized not deviated, Gag reflex: Not tested CN X1: Sternocleidomastoid, trapezius, normal or evidence of any weakness. CN X11: No Dysarthria, no wasting or fibrilation f tongue muscles, no deviation, tongue muscle strength normal. Motor examination: No hypertrophy, tone was normal, power grade 0-5 Upper limbs Proximal- No difficulty in lifting the arms above the head. Distal- No weakness in distal muscles On formal testing 5/5 all over Lower limbs On formal testing 5/5 all over Coordination: [id number] normal. Target pursuit normal finger tapping normal, Rapid alternating moment of wrist normal Sensory system: Superficial sensations- Touch normal. Pain- Pinprick, Temperature all normal, Deep sensation normal, Joint position sense normal. Cortical sensation, Tactile discrimination, localization and extinction all normal. Deep tendon reflexes. Symmetrical bilateral, No evidence of Babinski. No sign of meningeal irritation Gait Examination: Deferred Results - Laboratory Findings CBC and BMP: 06/24/18 02:03 06/24/18 02:03 Abnormal lab findings: Abnormal lab results RBC 3.74 M/mcL (4.19-5.50) L 06/24/18 02:03 Hgb 12.0 g/dL (12.9-16.9) L 06/24/18 02:03 Hct 37.0 % (37.5-50.1) L 06/24/18 02:03 MPV 9.1 fL (9.4-12.4) L 06/24/18 02:03 Chloride 96 mEq/L (98-107) L 06/24/18 02:03 BUN 39 mg/dL (8-23) H 06/24/18 02:03 6.17 mg/dL (0.70-1.30) H 06/24/18 02:03 Est GFR ( Amer) 11 (> 60) L 06/24/18 02:03 Est GFR (Non-Af Amer) 9 (> 60) L 06/24/18 02:03 Glucose 311 mg/dL (70-105) H 06/24/18 02:03 POC Glucose 208 mg/dL (70-99) H 06/23/18 20:28 305 (280-300) H 06/24/18 02:03 0.04 ng/mL (< 0.04) H* 06/23/18 20:27 B-Natriuretic Peptide 579 pg/mL (Less than 100) H 06/23/18 14:15 - Diagnostic Findings Additional findings: MRI of the brain no acute infarct but significant cerebellar atrophy Consult Discharge Plan - Plan Referrals: Kenny Mckenna DO [Primary Care Provider] -
[2018-06-24] MEDS: Furosemide 40 MG TABLET PO SCH (12:30)
[2018-06-24] MEDS ORDERED: Isovue-370 500 ML BOTTLE IVP ONE (13:01)
[2018-06-24] MEDS: Azithromycin 500 MG in D5% in Water 250 ML IVPB SCH (18:30)
[2018-06-25] MEDS: Piperacillin/Tazobactam 3.375 GM in 0.9 % Sodium Chloride Mini Bag 100 ML IVPB SCH (05:46)
[2018-06-25] MEDS: *HR* Heparin 5,000 UNIT/ML VIAL SQ SCH (05:46)
[2018-06-25 07:05] LABS: Basophils % 0.4 %; Eosinophils # 0.3 K/mcL (0.0-0.6); Eosinophils % 3.2 %; Hematocrit 34.7 % (37.5-50.1); Hemoglobin 11.4 g/dL (12.9-16.9); Immature Granulocytes % 0.8 % (0-4); Lymphocytes # 1.5 K/mcL (0.6-4.6); Lymphocytes % 15.5 %; Mean Corpuscular HGB Conc 32.9 g/dL (31.6-35.5); Mean Corpuscular Hemoglobin 32.4 pg (28.0-33.3); Mean Corpuscular Volume 98.6 fL (83.0-100.0); Mean Platelet Volume 9.2 fL (9.4-12.4); Monocytes # 0.7 K/mcL (0.0-1.3); Platelet Count 178 K/mcL (140-400); Red Blood Count 3.52 M/mcL (4.19-5.50); Red Cell Distribution Width 13.6 % (11.5-14.5); Segmented Neutrophils % 73.1 %
[2018-06-25] MEDS ORDERED: 0.9 % Sodium Chloride 250 ML IVC PRN (07:08)
[2018-06-25] MEDS ORDERED: 0.9 % Sodium Chloride 1,000 ML PRIME SCH (07:15)
[2018-06-25 07:26] LABS: Calcium 9.5 mg/dL (8.6-10.3); Magnesium 2.5 mg/dL (1.6-2.6); Potassium 4.7 mEq/L (3.5-5.1)
[2018-06-25] MEDS: Insulin LISPRO 300 UNITS/3 ML VIAL SQ SCH ×3 (08:19→13:16)
[2018-06-25] MEDS ORDERED: 0.9 % Sodium Chloride 2,000 ML ONE (08:22)
[2018-06-25] MEDS: Furosemide 40 MG TABLET PO SCH (08:23)
[2018-06-25] MEDS: Aspirin Enteric Coated 81 MG Tablet PO SCH (08:23)
[2018-06-25] MEDS: Insulin DETEMIR 100 UNIT/ML X5UNITS SQ SCH (08:23)
[2018-06-25 08:32] LABS: Hepatitis B Surface Antibody 4.93 mIU/mL
[2018-06-25 08:43] LABS: Hepatitis B Surface Antigen Nonreactive (Nonreactive)
[2018-06-25] MEDS ORDERED: predniSONE 20 MG TABLET PO SCH (09:00)
[2018-06-25] MEDS ORDERED: Azithromycin 250 MG TABLET PO SCH (09:15)
[2018-06-25 09:35] LABS: Estimated Average Glucose 171 mg/dl; Hemoglobin A1C 7.6 %
--- NOTE | 2018-06-25 09:53 | Cardiothoracic Consult Note ---
Date of Encounter: 06/25/18 Time of Encounter: 09:50 Assessment and Plan (1) Aortic stenosis Current Visit: No Status: Chronic The assessment and plan as outlined above was discussed with the patient and/or family members who expressed understanding and agreement. All questions were answered. The patient's echocardiogram reveals severe aortic valve stenosis. I do not feel that he is a candidate for surgical aortic valve replacement due to his dementia, dialysis-dependent renal failure and pulmonary hypertension. He may be a candidate for TAVR, but this would need to be done in [place]. He would require cardiac catheterization prior to TAVR, but this could be done here or in [place]. I would recommend transfer to the [facility]. Qualifiers: Cardiac valve disease etiology: etiology unspecified Qualified Code(s): I35.0 - Nonrheumatic aortic (valve) stenosis - History of Present Illness History of present illness: Mr. Dwyer is a 68 year old male The history was obtained from the chart and the patient who seems somewhat confu sed and forgetful. He is a 68-year-old gentleman who was admitted with frequent falls and seizure like activity with possible syncope. Past medical history is notable for end-stage renal disease on dialysis and COPD. He also has diabetes and hypertension. He is status post cholecystectomy and colectomy. He does have a history of alcohol abuse and MRI revealed cerebellar atrophy. Echocardiogram revealed ejection fraction of 45-50% with severe aortic valve stenosis and mild to moderate aortic valve regurgitation. The aortic root was of normal size. He did have mild pulmonary hypertension. Social history. He lives in [place] by himself. He is disabled because of his kidneys. He used to smoke but quit some time ago. He used to be a heavy drinker, but again claims that he has quit at some unknown time in the past. Past Med Surg Social Fam HX - Past Medical History Medical history: asthma, CHF, diabetes, dialysis, hypertension, renal disease, syncope, other Additional medical history: pericardial effusion. pulm HTN Psychiatric history: no psych history - Past Surgical History Surgical History: cholecystectomy, colectomy, other Additional surgical history: fistula left arm, peg tubal and removal - Social History Smoking Status: Never smoker Smokeless Tobacco Status: No Alcohol use: none Drug use: none - Family History Mother Living Status: Hx Family Cardiac Disorders: Yes Hx Family Cancer: Yes (metastic breast cancer) Medications and Allergies Atorvastatin [Lipitor] 40 mg PO HS #30 tablet 02/20/15 [Rx] Aspirin Enteric Coated [Aspirin EC] 81 mg PO DAILY 05/02/16 [History] Calcium Carbonate [Tums] 1,000 mg PO BID 05/02/16 [History] Insulin NPH, HUMAN [HumuLIN N] 10 - 12 unit SQ TIDWM 05/02/16 [History] Renal Vitamin [Renal Caps Softgel] 1 mg PO DAILY 05/02/16 [History] Atenolol [Tenormin] 25 mg PO QPM 09/06/16 [History] Docusate [Colace] 100 mg PO BID 09/06/16 [History] Hydralazine HCl 50 mg PO TID 09/06/16 [History] Lidocaine/Prilocaine CREAM [Emla] 1 appl TP AD PRN 09/06/16 [History] Lisinopril [Zestril] 10 mg PO SUTUTH@199909/06/16 [History] Lisinopril [Zestril] 20 mg PO MOWEFRSA@199909/06/16 [History] Quetiapine Fumarate [Seroquel] 50 mg PO HS 09/06/16 [History] Ergocalciferol (VITAMIN D2) [Vitamin D2] 50,000 unit PO [place] 12/05/16 [History] PARoxetine HCl [Paroxetine HCl] 40 mg PO DAILY 12/05/16 [History] Insulin Glargine [Lantus] 10 unit SQ HS 06/23/18 [History] Cyanocobalamin (Vitamin B-12) [Vitamin B12] 1,000 mcg PO DAILY 06/24/18 [History] Allergy/AdvReac Type Severity Reaction Status Date / Time albuterol AdvReac Shakiness Verified 06/23/18 21:12 All Systems Review: The remainder of the systems were reviewed and are negative Physical Examination Vital Signs, Last 4 Hours Temp Pulse Resp BP Pulse Ox 06/25/18 08:31 97 06/25/18 08:15 98.2 F 65 20 160/74 97 The patient is confused and extremely forgetful. His pupils are equal, round and reactive to light and accommodation. No oral lesions. Neck is supple. Trachea in the midline. No thyromegaly or carotid bruits. Lungs are clear to percussion and auscultation. Heart is in a regular rate and rhythm. There is a 2/6 systolic murmur heard best in the aortic area. Abdomen is benign. No tenderness, rebound or guarding. He is status post cholecystectomy and colectomy. Extremities without edema. He has an AV fistula in his left arm. He is confused, but neurologically is grossly intact. Results 06/25/18 06:28 06/25/18 06:28 Lab Results, Last 24 hours 06/25/18 06/25/18 06:28 06:28 WBC 9.5 Hgb 11.4 L Hct 34.7 L Plt Count 178 Sodium 139 Potassium 4.7 Chloride 97 L Carbon Dioxide 27 BUN 63 H Creatinine 7.75 H Glucose 112 H Calcium 9.5 Magnesium 2.5 Consult Discharge Plan - Plan Referrals: Kenny Mckenna DO [Primary Care Provider] -
[2018-06-25] MEDS ORDERED: Isovue-370 500 ML BOTTLE IVP ONE (10:02)
--- NOTE | 2018-06-25 10:02 | Electrocardiograph Report ---
[address] [address] Test Date: 2018-06-23 Pat Name: Jose Alberto Dwyer Department: EXAM26 Room: 2A42 Gender: M Care Consultant: : 1950 Requested By: Nghia Baca Order Number: [id number] Reading MD: Fortunato Cisneros Measurements Intervals [place] Rate: 67 P: -26 MS: 217 QRS: -44 QRSD: 127 T: 71 QT: 479 QTc: 506 Interpretive Statements Sinus rhythm Sinus pause Borderline prolonged MS interval Nonspecific IVCD with LAD Left ventricular hypertrophy Electronically Signed On 06-25-2018 10:00:44 EDT by Fortunato Cisneros
--- NOTE | 2018-06-25 10:07 | Neurology Progress Note ---
<Jacob Gutierrez J - Last Filed: 06/25/18 10:04> Date of Encounter: 06/25/18 Time of Encounter: 10:04 Assessment and Plan (1) Syncope Current Visit: No Status: Acute Qualifiers: Syncope type: vasovagal syncope Qualified Code(s): R55 - Syncope and collapse (2) Witnessed seizure-like activity Current Visit: Yes Status: Acute Clinically, he remains stable. Denies any return of seizure-like activity or syncope since admission. He is unable to recall events surrounding admission. Sx are concerning for seizures however, DDX includes syncope with convulsive activity as well, arrhythmia or metabolic dysfunction. Neuroimaging reveals cerebellar atrophy. With imaging findings consider VBI, but also seen in alcoh olism. Additionally, he has PNA and is coughing on my exam. Consider cough reflex causing vasovagal phenomena and syncope with convulsive activity. C/w EEG; results pending; hold off on AED's for now. We will reconsider the need for AED's based on EEG results. C/w seizure precautions, neuro assessments, PRN ativan and telemetry. Will get CTA head to evaluate intracranial circulation for VBI; pending. CTA neck did not find any flow limiting stenosis. Neuro exam is non focal today. C/W medical and supportive care. Subjective Principal diagnosis: Seizure-like activit vs syncope Interval history: Patient seen in f/u for seizure-like activity vs syncope. He suffers from dementia and is a poor historian. He is unable to provide any details of events surrounding admission and does not recall any seizure-like activity or syncopal events. He denies any return of seizure activity since admission and also denies an syncope. At the moment we are awaiting the results of the EEG and CTA head to evaluate for seizures and syncope. No new neurological complaints. Objective - Constitutional Vitals: Temp Pulse Resp BP Pulse Ox 98.2 F 65 20 160/74 97 06/25/18 08:15 06/25/18 08:15 06/25/18 08:15 06/25/18 08:15 06/25/18 08:31 Exam: GENERAL: Comfortable in no acute distress HEENT: Normal LUNGS: CTA HEART: RRR, S1 S2 Audible, no murmur EXTREMITIES: No Pedal edema. DETAILED NEUROLOGICAL EXAMINATION: MENTAL STATUS: Oriented to person, place, date and situation. Memory: knows the President, Aware of recent events Recent Memory Intact, Attention span is normal Cranial Nerve Examination: CN - II: Visual Acuity, Field of Vision Normal, Fundus examination: No disk edema, Pupils- 3mm bilaterally size shape reaction to light and accommodation: All normal. CN III, IV, : External ocular movements were intact, Pupils were reactive, No PTOSIS CN V: Sensation over the face to light touch and pinprick all normal. Corneal reflexes not tested, jaw jerk normal. CN VII: No facial asymmetry, no flattening of nasolabial folds, no difficulty in closing the eyes, no loss of forehead wrinkles, no difficulty in eye-closure, frowning raising eyebrows. CNVIII: No significant hearing loss CN IX, X: Uvula centralized not deviated, Gag reflex: Not tested CN X1: Sternocleidomastoid, trapezius, normal or evidence of any weakness. CN X11: No Dysarthria, no wasting or fibrilation f tongue muscles, no deviation, tongue muscle strength normal. Motor examination: No hypertrophy, tone was normal, power grade 0-5 Upper limbs Proximal- No difficulty in lifting the arms above the head. Distal- No weakness in distal muscles On formal testing 5/5 all over Lower limbs On formal testing 5/5 all over Coordination: [id number] without dysmetria, Rapid alternating moment of wrist normal Sensory system: Superficial sensations- Touch normal. Pain- Pinprick, Temperature all normal, Deep sensation normal, Joint position sense normal. Cortical sensation, Tactile discrimination, localization and extinction all normal. Deep tendon reflexes. - Symmetrical bilateral, No evidence of Babinski. No sign of meningeal irritation Gait Examination: Deferred Results - Laboratory Findings CBC and BMP: 06/25/18 06:28 06/25/18 06:28 Abnormal lab findings: Abnormal lab results RBC 3.52 M/mcL (4.19-5.50) L 06/25/18 06:28 Hgb 11.4 g/dL (12.9-16.9) L 06/25/18 06:28 Hct 34.7 % (37.5-50.1) L 06/25/18 06:28 MPV 9.2 fL (9.4-12.4) L 06/25/18 06:28 Chloride 97 mEq/L (98-107) L 06/25/18 06:28 BUN 63 mg/dL (8-23) H 06/25/18 06:28 7.75 mg/dL (0.70-1.30) H 06/25/18 06:28 Est GFR ( Amer) 9 (> 60) L 06/25/18 06:28 Est GFR (Non-Af Amer) 7 (> 60) L 06/25/18 06:28 Glucose 112 mg/dL (70-105) H 06/25/18 06:28 POC Glucose 147 mg/dL (70-99) H 06/25/18 01:01 7.6 % (-5.6) H 06/24/18 02:03 307 (280-300) H 06/25/18 06:28 Phosphorus 5.0 mg/dL (2.7-4.5) H 06/25/18 06:28 0.04 ng/mL (< 0.04) H* 06/23/18 20:27 B-Natriuretic Peptide 579 pg/mL (Less than 100) H 06/23/18 14:15 Hep Bs Antibody 4.93 mIU/mL (10.00-) L 06/25/18 06:28 Consult Discharge Plan - Plan Referrals: Kenny Mckenna DO [Primary Care Provider] - Prescriptions: Amoxicillin/Clavulanate [Augmentin] 875 mg PO BIDWM 7 Days #14 tablet Furosemide [Lasix] 40 mg PO DAILY 30 Days #30 tablet <Srinivas Sandoval I - Last Filed: 06/25/18 15:11> Date of Encounter: 06/25/18 Assessment and Plan (1) Syncope Current Visit: No Status: Acute Qualifiers: Syncope type: vasovagal syncope Qualified Code(s): R55 - Syncope and collapse (2) Witnessed seizure-like activity Current Visit: Yes Status: Acute I have personally performed a face to face diagnostic evaluation, including HPI, EXAM, which is included in the Assesment and plan, which was discussed with Jacob Gutierrez CNP, I agree with the above outlined documentation. Srinivas Sandoval MD. NeurologyI Objective - Constitutional Vitals: Temp Pulse Resp BP Pulse Ox 97.9 F 65 20 126/62 97 06/25/18 10:10 06/25/18 08:15 06/25/18 10:10 06/25/18 12:10 06/25/18 08:31 Results - Laboratory Findings CBC and BMP: 06/25/18 06:28 06/25/18 06:28 Abnormal lab findings: Abnormal lab results RBC 3.52 M/mcL (4.19-5.50) L 06/25/18 06:28 Hgb 11.4 g/dL (12.9-16.9) L 06/25/18 06:28 Hct 34.7 % (37.5-50.1) L 06/25/18 06:28 MPV 9.2 fL (9.4-12.4) L 06/25/18 06:28 Chloride 97 mEq/L (98-107) L 06/25/18 06:28 BUN 63 mg/dL (8-23) H 06/25/18 06:28 7.75 mg/dL (0.70-1.30) H 06/25/18 06:28 Est GFR ( Amer) 9 (> 60) L 06/25/18 06:28 Est GFR (Non-Af Amer) 7 (> 60) L 06/25/18 06:28 Glucose 112 mg/dL (70-105) H 06/25/18 06:28 POC Glucose 114 mg/dL (70-99) H 06/25/18 13:04 7.6 % (-5.6) H 06/24/18 02:03 307 (280-300) H 06/25/18 06:28 Phosphorus 5.0 mg/dL (2.7-4.5) H 06/25/18 06:28 0.04 ng/mL (< 0.04) H* 06/23/18 20:27 B-Natriuretic Peptide 579 pg/mL (Less than 100) H 06/23/18 14:15 Hep Bs Antibody 4.93 mIU/mL (10.00-) L 06/25/18 06:28
--- NOTE | 2018-06-25 10:28 | Discharge Summary ---
Orders not resulted at time of discharge: Pending orders 06/23/18 15:47 Culture,Blood [BC] Stat 06/23/18 15:58 Legionella Antigen [RM] Stat Streptococcal pneumoniae urin antigen [S. Pneumoniae Antigen] [RM] Stat 06/25/18 12:15 CTA Head [CT angio head] [CT] Routine Date of Encounter: 06/25/18 Time of Encounter: 10:23 - Discharge Diagnosis (1) Aortic stenosis Priority: Primary Status: Chronic Qualifiers: Cardiac valve disease etiology: etiology unspecified Qualified Code(s): I35.0 - Nonrheumatic aortic (valve) stenosis (2) Witnessed seizure-like activity Priority: Primary Status: Acute (3) ESRD (end stage renal disease) on dialysis Priority: Secondary Status: Chronic (4) COPD exacerbation Priority: Secondary Status: Acute (5) Hypertension Priority: Secondary Status: Chronic Qualifiers: Hypertension type: essential hypertension Qualified Code(s): I10 - Essential (primary) hypertension (6) Diabetes Priority: Secondary Status: Chronic 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 mellitus fci insulin use: with terminal operations supervisor use Diabetes mellitus complication status: with kidney complications Diabetes mellitus complication detail: with chronic kidney disease Chronic kidney disease stage: on chronic dialysis Qualified Code(s): E11.22 - Type 2 diabetes mellitus with diabetic chronic kidney disease; N18.6 - End stage renal disease; Z99.2 - Dependence on renal dialysis; Z99.2 - Dependence on renal dialysis; Z99.2 - Dependence on renal dialysis; N18.6 - End stage renal disease; N18.6 - End stage renal disease; N18.6 - End stage renal disease; Z79.4 - terminal operations supervisor (current) use of insulin; Z79.4 - care home (current) use of insulin; Z79.4 - care home (current) use of insulin; Z79.4 - terminal operations supervisor (current) use of insulin; Z99.2 - Dependence on renal dialysis (7) Elevated troponin Priority: Secondary Status: Ruled-out (8) Hyperlipidemia Priority: Secondary Status: Chronic Qualifiers: Hyperlipidemia type: unspecified Qualified Code(s): E78.5 - Hyperlipidemia, unspecified (9) Moderate to severe pulmonary hypertension Priority: Secondary Status: Chronic (10) Pneumonia Priority: Primary Status: Acute Qualifiers: Pneumonia type: due to unspecified organism Laterality: right Lung location: lower lobe of lung Qualified Code(s): J18.1 - Lobar pneumonia, unspecified organism (11) Falls Priority: Primary Status: Chronic Qualifiers: Encounter type: sequela Qualified Code(s): W19.XXXS - Unspecified fall, sequela Hospital course: Mr. Dwyer is a 68 year old male PMH or moderate-severe Pulm HTN, HTN, DM, ESRD on HD (M,W,F), COPD, and HFpEF. Patient was brought to the hospital due to seizure like activity and productive cough. Patient's girlfriend also reported frequent syncopal episodes. Patient was admitted to the hospital for seizures like activities, frequent syncopes, Pneumonia and CPDO exacerbation. Patient was managed with IV antibiotics. CT/CT head/brain wo con IMPRESSION: No acute intracranial abnormality. A brain MRI: Volume loss with disproportionate cerebellar atrophy. Mild to moderate chronic white matter microvascular ischemic disease. CT/CT angio neck IMPRESSION: No flow limiting stenosis or branch occlusion identified within the neck. Due to the patient's history of moderate aortic stenosis a TTE was repeated. Which showed severe aortic stenosis. 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 [facility] has been called and transferred scheduled. Patient is hemodynamically stable to be transferred. - Time Spent with Patient Total time spent providing and/or coordinating discharge services: Time spent: Greater than 30 minutes (35) - Discharge Medications Prescriptions: New Amoxicillin/Clavulanate [Augmentin] 875 mg PO BIDWM 7 Days #14 tablet Furosemide [Lasix] 40 mg PO DAILY 30 Days #30 tablet predniSONE [PredniSONE] 40 mg PO DAILY tablet Continued Atorvastatin [Lipitor] 40 mg PO HS #30 tablet Calcium Carbonate [Tums] 1,000 mg PO BID Aspirin Enteric Coated [Aspirin EC] 81 mg PO DAILY Renal Vitamin [Renal Caps Softgel] 1 mg PO DAILY Insulin NPH, HUMAN [HumuLIN N] 10 - 12 unit SQ TIDWM Hydralazine HCl 50 mg PO TID Atenolol [Tenormin] 25 mg PO QPM Lidocaine/Prilocaine CREAM [Emla] 1 appl TP AD PRN PRN Reason: Prior To Dialysis Docusate [Colace] 100 mg PO BID Quetiapine Fumarate [Seroquel] 50 mg PO HS Lisinopril [Zestril] 20 mg PO MOWEFRSA@1999 Lisinopril [Zestril] 10 mg PO SUTUTH@1999 PARoxetine HCl [Paroxetine HCl] 40 mg PO DAILY Ergocalciferol (VITAMIN D2) [Vitamin D2] 50,000 unit PO WALDROP Insulin Glargine [Lantus] 10 unit SQ HS Cyanocobalamin (Vitamin B-12) [Vitamin B12] 1,000 mcg PO DAILY Home Medications: Atorvastatin [Lipitor] 40 mg PO HS #30 tablet 02/20/15 [Rx] Aspirin Enteric Coated [Aspirin EC] 81 mg PO DAILY 05/02/16 [History] Calcium Carbonate [Tums] 1,000 mg PO BID 05/02/16 [History] Insulin NPH, HUMAN [HumuLIN N] 10 - 12 unit SQ TIDWM 05/02/16 [History] Renal Vitamin [Renal Caps Softgel] 1 mg PO DAILY 05/02/16 [History] Atenolol [Tenormin] 25 mg PO QPM 09/06/16 [History] Docusate [Colace] 100 mg PO BID 09/06/16 [History] Hydralazine HCl 50 mg PO TID 09/06/16 [History] Lidocaine/Prilocaine CREAM [Emla] 1 appl TP AD PRN 09/06/16 [History] Lisinopril [Zestril] 10 mg PO SUTUTH@199909/06/16 [History] Lisinopril [Zestril] 20 mg PO MOWEFRSA@199909/06/16 [History] Quetiapine Fumarate [Seroquel] 50 mg PO HS 09/06/16 [History] Ergocalciferol (VITAMIN D2) [Vitamin D2] 50,000 unit PO WALDROP 12/05/16 [History] PARoxetine HCl [Paroxetine HCl] 40 mg PO DAILY 12/05/16 [History] Insulin Glargine [Lantus] 10 unit SQ HS 06/23/18 [History] Cyanocobalamin (Vitamin B-12) [Vitamin B12] 1,000 mcg PO DAILY 06/24/18 [History] Amoxicillin/Clavulanate [Augmentin] 875 mg PO BIDWM 7 Days #14 tablet 06/25/18 [Rx] Furosemide [Lasix] 40 mg PO DAILY 30 Days #30 tablet 06/25/18 [Rx] predniSONE [PredniSONE] 40 mg PO DAILY tablet 06/25/18 [Rx] Allergies/Adverse Reactions: Allergy/AdvReac Type Severity Reaction Status Date / Time albuterol AdvReac Shakiness Verified 06/23/18 21:12 Date of admission: 06/23/18 15:55 Primary care physician: Kenny Mckenna DO Consults: 06/23/18 15:52 Consult to Occupational Therapy [CONS] Routine Comment: Evaluate, develop and implement POC Reason for Consult: generalized weakness Does patient have active BEDREST order?: No Is patient medically & hemodynamically stable?: Yes Consult to Physical Therapy [CONS] Routine Comment: Evaluate, develop and implement POC Reason for Consult: generalized weakness Does patient have active BEDREST order?: No Is patient medically & hemodynamically stable?: Yes 06/23/18 15:55 Consult to Nephrology [CONS] Routine Consulting Provider: [facility] Corinne/JALEN/HALLIE/BINDU Reason for Consult: ESRD Call Completed: No 06/23/18 16:39 Consult to Neurology [CONS] Routine Consulting Provider: [facility] Reason for Consult: seizure like activity Call Completed: No 06/25/18 07:15 Consult to Dialysis [CONS] QMWF 06/25/18 09:09 Consult to Nurse Navigator [CONS] Routine Comment: copd, hd 06/25/18 09:14 Consult to Cardiothoracic Surgery [CONS] Routine Consulting Provider: [facility]oracic [facility] Reason for Consult: severe aortic stenosis Call Completed: Yes 06/27/18 07:15 Consult to Dialysis [CONS] QMWF 06/29/18 07:15 Consult to Dialysis [CONS] QMWF - Constitutional Vitals: Temp Pulse Resp BP Pulse Ox 98.2 F 65 20 160/74 97 06/25/18 08:15 06/25/18 08:15 06/25/18 08:15 06/25/18 08:15 06/25/18 08:31 Exam: Vitals: Reviewed General: Alert and oriented x3. In no acute distress. Cardiovascular: RRR, normal S1 & S2, no rubs, murmurs or gallops. Lungs: CTA b/l, no rales, wheezing or crackles. Abdomen: Soft, non-tender, no rigidity. Extremities: No edema Neurological: No focal neurological deficits. Rest of the physical exam is non contributory - Patient Status Disposition: Transfer Critical Access Hosp Condition: Fair Functional capacity at discharge: independent ambulation Overall status at discharge: patient is progressing back to baseline - Discharge Instructions Follow Up With: Kenny Mckenna, [Primary Care Provider] - - Diet and Activity Activity: resume usual activities as tolerated Diet: low salt diet
[2018-06-25] MEDS ORDERED: Insulin LISPRO 300 UNITS/3 ML VIAL SQ SCH (12:00)
--- NOTE | 2018-06-25 12:29 | Nephrology Progress Note ---
Date of Encounter: 06/25/18 Time of Encounter: 09:59 - Assessment and Plan (1) ESRD (end stage renal disease) on dialysis Status: Chronic Dialysis note: He was seen and examined while on hemodialysis, and was tolerating the treatment quite well. He was in good spirits and smiling and joking. He said that he will be transferring to [facility] today. Thank you (2) Witnessed seizure-like activity Status: Acute (3) Anemia in chronic kidney disease Status: Chronic Qualifiers: Chronic kidney disease stage: on chronic dialysis Qualified Code(s): N18.6 - End stage renal disease; D63.1 - Anemia in chronic kidney disease; Z99.2 - Dependence on renal dialysis (4) Physical deconditioning Status: Chronic Subjective Principal diagnosis: Seizure-like activit vs syncope Interval history: Patient was seen and examined while undergoing hemodialysis. He did not affirm having cramping, chest pain, shortness of breath that was worsened compared to before since starting his HD treatment. Objective - Vital Signs Vital signs: Vital Signs Temp Pulse Resp BP Pulse Ox 06/25/18 12:10 126/62 06/25/18 11:55 111/55 06/25/18 11:40 124/69 06/25/18 11:25 133/67 06/25/18 11:10 128/63 06/25/18 10:55 148/66 06/25/18 10:40 142/82 06/25/18 10:25 143/71 06/25/18 10:10 97.9 F 20 145/72 06/25/18 08:31 97 06/25/18 08:15 98.2 F 65 20 160/74 97 06/25/18 05:05 97.7 F 59 16 149/74 97 06/25/18 00:58 97.7 F 63 17 122/68 96 06/24/18 19:44 97.8 F 75 16 124/79 95 06/24/18 15:30 98.3 F 64 20 159/73 94 Intake and Output 06/24/18 06/25/18 06/25/18 23:59 07:59 15:59 Intake Total 400 / 1120 300 / 1150 850 / 1150 Output Total 400 / 400 300 / 300 0 / 300 Balance 0 / 720 0 / 850 850 / 850 Intake: IV Fluids 200 / 200 250 / 250 Zithromax 500 mg In Dextrose 5% 250 / 250 250 ML @ 252 mls/hr IVPB Q24H [facility] Rx#:[id number] Zosyn 3.375 GM In 0.9 % Sodium 200 / 200 Chloride (Mini-Bag +) 100 ML @ 25 mls/hr IVPB Q12HR [facility] Rx#: [id number] Oral 200 / 920 300 / 300 0 / 300 Intake, Rinseback and Flushes 600 / 600 Output: Urine 400 / 400 300 / 300 0 / 300 Other: Blood Glucose* 87 147 118 Hemodialysis Net Fluid Removed 2054 (mL) - General Appearance General appearance: Present: well-developed, well-nourished, appears started age, frail EENT: Present: ATNC, PERRL, mucous membranes moist Neck: Present: supple Respiratory: Present: clear (But bibasilar diminished breath sounds) Cardiology: Present: holosystolic murmur, no edema, regular rate, regular rhythm, normal S1, normal S2 Dialysis Vascular Access: Arteriovenous Fistula (Left UE AVF) thrill: Yes bruit: Yes Gastrointestinal: Present: normoactive bowel sounds, no tenderness, no guarding Integumentary: Present: warm and dry Neurologic: Present: no focal deficit, no asterixis, alert and oriented x3 Additional Comments: History of mild cognitive impairment Musculoskeletal: Present: no erythema, no cyanosis, no clubbing Psychiatric: Present: mood/affect appropriate, cooperative - Lab 06/25/18 06:28 06/25/18 06:28 Most recent lab results 06/25/18 06:28 Calcium 9.5 Phosphorus 5.0 H Magnesium 2.5 Consult Discharge Plan - Plan Referrals: Kenny Mckenna DO [Primary Care Provider] - Prescriptions: Amoxicillin/Clavulanate [Augmentin] 875 mg PO BIDWM 7 Days #14 tablet Furosemide [Lasix] 40 mg PO DAILY 30 Days #30 tablet
--- NOTE | 2018-06-25 15:12 | EEG/EMG/Oth Biometrics Report ---
EEG Procedure Report EEG Procedure: Routine EEG Procedure Note: This is a routine 21 channel digital EEG performed utilizing 10- 20 international electrode placement system. FINDINGS: Patient has a predominant waking background frequency that is average voltage 8 to 10 Hertz alpha activity in the posterior region, normal amplitude symmetrical over the both hemispheres reactive to eyes opening and closing record continued to show alpha activity intermixed with some theta off and on, no abnormal activity recorded, predominantly no evidence of any spike wave discharges or any lateralizing abnormalities, Photic stimulation and hyperventilation did not produce any convulsive response. Intermittent EMG artifacts were noted. Stage II sleep was not achieved. Impression: Normal awake drowsy electroencephalogram. No epileptiform discharges or any other paroxysmal activities noted. ( Please note that normal EEG does not exclude the diagnosis of seizures or epilepsy, clinical correlation is suggested)
[2018-06-25 15:29] VITALS: BP 119/67
== END 2018-06-25 16:17 | disposition critical access hospital (66) ==
LOC: 2ANU 13:37 → EMEROOARM 13:37 → SUATTDRO 15:55 → 2ANU 18:49
PROVIDERS: ADMIT Internal Medicine Nephrology; ATTEND Internal Medicine